=== PATIENT | female | born 1950 | race Caucasian/White ===

== ENCOUNTER 2017-04-18 13:47 | Outpatient (CLI) | payer MEDICARE ==
[2017-04-18 20:17] LABS: BASOPHILS % (AUTO) 0.3 %; EOSINOPHILS # (AUTO) 0.1 10^3/uL (0.0-0.7); EOSINOPHILS % (AUTO) 0.6 %; HCT - HEMATOCRIT 47.8 % (37.0-47.0); HGB - HEMOGLOBIN 15.6 g/dL (12.0-16.0); LYMPHOCYTES % (AUTO) 7.5 %; MEAN CORPUSCULAR HEMOGLOBIN 28.8 pg (27.0-31.0); MEAN CORPUSCULAR HGB CONC 32.6 g/dL (32.0-36.0); MEAN CORPUSCULAR VOLUME 88.4 fL (81.0-99.0); MEAN PLATELET VOLUME 9.2 fL (7.9-10.8); MONOCYTES # (AUTO) 0.9 10^3/uL (0.0-1.0); MONOCYTES % (AUTO) 6.9 %; NEUTROPHILS # (AUTO) 10.7 10^3/uL (1.5-6.6); NEUTROPHILS % (AUTO) 84.7 %; RED BLOOD COUNT 5.41 10^6/uL (4.20-5.40); RED CELL DISTRIBUTION WIDTH 14.1 % (12.0-15.0); UNCORRECTED WHITE BLOOD COUNT 12.7 x10^3/uL; WHITE BLOOD COUNT 12.7 x10^3/uL (4.8-10.8)
[2017-04-18 20:22] LABS: ALBUMIN/GLOBULIN RATIO 1.2 (1.0-2.2); BILIRUBIN,TOTAL 0.4 mg/dL (0.2-1.0); BUN - BLOOD UREA NITROGEN 22 mg/dL (6-20); CALCIUM 9.5 mg/dL (8.5-10.3); CARBON DIOXIDE - CO2 21 mmol/L (21-32); CHLORIDE 109 mmol/L (101-111); GFR - MDRD 55 (>89); GLUCOSE 169 mg/dL (70-100); POTASSIUM 3.7 mmol/L (3.5-5.0); SODIUM 140 mmol/L (135-145); TOTAL PROTEIN 7.8 g/dL (6.7-8.2)
== END 2017-04-18 13:48 | disposition home or self-care (01) ==
LOC: LAB.WCP 13:47
PROVIDERS: ATTEND Physician Assistant Medical
DX: R00.0 Tachycardia, unspecified (principal); Z79.899 Other long term (current) drug therapy
CPT/HCPCS: 36415; 80053; 84443; 85025

== ENCOUNTER 2017-06-11 12:14 | Outpatient (CLI) | payer MEDICARE | END 2017-06-11 12:15 | disposition home or self-care (01) | LOC: DI 12:14 | PROVIDERS: ATTEND Physician Assistant Medical | DX: R00.0 Tachycardia, unspecified (principal); R06.02 Shortness of breath | CPT/HCPCS: 93306 ==

== ENCOUNTER 2017-08-27 15:27 | Emergency (ER) | payer MEDICARE ==
[2017-08-27 15:41] VITALS: BP 159/102
[2017-08-27] MEDS ORDERED: IPRATROPIUM/ALBUTEROL 3 ML NEB INH STA (16:10)
[2017-08-27] MEDS ORDERED: IPRATROPIUM/ALBUTEROL 3 ML NEB INH ONE (16:21)
--- NOTE | 2017-08-27 16:36 | ED Physician Documentation ---
PD HPI DYSPNEA - Stated complaint Stated Complaint: WHEEZING - Chief complaint Chief Complaint: Resp - History obtained from History obtained from: Patient - History of Present Illness Timing - duration: Days ("Several") Timing - details: Still present Worsened by: Coughing Associated symptoms: Cough, Wheezing. No: Fever, Chest pain / discomfort - Additional information Additional information: The patient is a 67-year-old female who presents with cough and wheezing of several days duration. She reports associated sore throat and congestion. She denies fever, chest pain, headache, or abdominal pain. She has a history of bronchitis and has an albuterol inhaler. History is significant for diabetes and gastroparesis. She has never smoked cigarettes. Review of Systems Constitutional: denies: Fever Nose: reports: Congestion Throat: reports: Sore throat Cardiac: denies: Chest pain / pressure, Palpitations Respiratory: reports: Cough. denies: Dyspnea GI: denies: Abdominal Pain, Nausea, Vomiting : denies: Dysuria Skin: denies: Rash Musculoskeletal: denies: Back pain, Extremity swelling Neurologic: denies: Headache PD PAST MEDICAL HISTORY - Past Medical History Cardiovascular: Hypertension Respiratory: Other (bronchitis) Neuro: TIA, Parkinson's, Seizure disorder Endocrine/Autoimmune: None BRIQUETTE OPERATOR: None : None Psych: None Musculoskeletal: Osteoarthritis - Past Surgical History Past Surgical History: Yes General: Cholecystectomy /BRIQUETTE OPERATOR: Hysterectomy HEENT: Tonsil/Adenoidectomy - Present Medications Home Medications: Ambulatory Orders Medication Instructions Recorded Confirmed Amitriptyline HCl 100 mg PO HS 10/22/13 11/30/15 Clopidogrel [Plavix] 75 mg PO DAILY 10/22/13 11/30/15 Erythromycin [James-Tab] 250 mg PO BID 10/22/13 11/30/15 Hydroxyzine Pamoate 25 mg PO Q8HR 10/22/13 01/21/14 Loratadine [Claritin] 10 mg PO DAILY 10/22/13 01/21/14 Lorazepam 0.5 mg PO Q6-8H PRN 10/22/13 01/21/14 Metoclopramide [Reglan] 10 mg PO BID 10/22/13 11/30/15 Multivitamin [Multi-Day Vitamins] 1 each PO DAILY 10/22/13 01/21/14 Omeprazole [PriLOSEC] 01/16/14 04/17/14 Oxycodone HCl/Acetaminophen 1 - 2 each PO BID PRN 10/22/13 01/21/14 [Percocet 5-325 mg Tablet] Topiramate [Topamax] 100 mg PO BID 10/22/13 11/30/15 predniSONE [Deltasone] 40 mg PO DAILY 5 Days tablet 01/21/14 Potassium Chloride [Klor-Con M10] 10 meq PO DAILY 11/30/15 11/30/15 - Allergies Allergies/Adverse Reactions: Allergies Allergy/AdvReac Type Severity Reaction Status Date / Time Penicillins Allergy Severe Respiratory Verified 11/30/15 19:23 aspirin Allergy resp Verified 11/30/15 19:23 diphenhydramine HCl * Allergy Hives Verified 11/30/15 19:23 [From Benadryl] iodine Allergy resp Verified 11/30/15 19:23 micafungin sodium * Allergy Anaphylaxis Verified 11/30/15 19:23 [From Mycamine] oxytetracycline Allergy resp Verified 11/30/15 19:23 [From Terramycin] oxytetracycline HCl * Allergy resp Verified 11/30/15 19:23 [From Terramycin] valproate sodium * AdvReac Nausea Verified 11/30/15 19:23 [From Depakene] valproic acid [From Depakene] AdvReac Nausea Verified 11/30/15 19:23 - Social History Does the pt smoke?: No Smoking Status: Never smoker Does the pt drink ETOH?: Yes Does the pt have substance abuse?: No - Immunizations Immunizations are current?: Yes - POLST Patient has POLST: No POLST Status: Full Code PD ED PE NORMAL - Vitals Vital signs reviewed: Yes (hypertensive) - General General: Alert and oriented X 3, Well developed/nourished - HEENT HEENT: Atraumatic, Ears normal, Pharynx benign - Neck Neck: Supple, no meningeal sign, No adenopathy, No JVD - Cardiac Cardiac: RRR, No murmur - Respiratory Respiratory: Other (Expiratory wheezing bilaterally. No rales or rhonchi.) - Abdomen Abdomen: Soft, Non tender - Back Back: No CVA TTP - Derm Derm: No rash - Extremities Extremities: No edema, No calf tenderness / cord - Neuro Neuro: Alert and oriented X 3, No motor deficit, No sensory deficit Results - Vitals Vitals: Oxygen O2 Source Room air - EKG (time done) 16:20 Rate: Rate (enter#) (108) Rhythm: Sinus tachycardia [place]: LAD Intervals: Normal [place] QRS: Poor R wave progression Ischemia: Q waves (in inferior leads II, III, and aVF, consistent with old inferior VT.) Compare to prior EKG: Unchanged from prior EKG (No significant change compared to prior tracing of 11/30/2015.) Computer interpretation: Agree with computer PD MEDICAL DECISION MAKING - ED course Complexity details: reviewed old records, reviewed results, re-evaluated patient , considered differential, d/w patient, d/w family ED course: The patient's presentation is most consistent with asthmatic bronchitis. Her presentation does not suggest pneumonia or congestive heart failure. Treatment in the emergency department included administration of DuoNeb nebulizer, which did improve the patient's air movement and almost completely cleared her wheezing. I discussed with her and her the expected course of illness, rales potentially worrisome signs or symptoms that should prompt reevaluation in the emergency department. Departure - Departure Disposition: 01 Home, Self Care Clinical Impression: Upper respiratory tract infection Qualifiers: URI type: unspecified URI Qualified Code(s): J06.9 - Acute upper respiratory infection, unspecified Asthma Qualifiers: Asthma severity: mild Asthma persistence: unspecified Asthma complication type : with acute exacerbation Qualified Code(s): J45.901 - Unspecified asthma with ( acute) exacerbation Condition: Stable Instructions: ED Bronchitis Asthmatic Follow-Up: Floresita Robles PA-C [Primary Care Provider] - Comments: Continue your Combivent and albuterol inhalers as previously prescribed. You can use Tylenol or ibuprofen as needed for discomfort. Follow up with your primary physician within 1-2 weeks. Call to schedule appointment. Return to the emergency department if you develop increasing difficulty breathing, or otherwise worsening symptoms. Discharge Date/Time: 08/27/17 17:00
== END 2017-08-27 17:00 | disposition home or self-care (01) ==
LOC: ED 15:27
DX: J06.9 Acute upper respiratory infection, unspecified (principal); J45.901 Unspecified asthma with (acute) exacerbation; I10 Essential (primary) hypertension; G20 Parkinson's disease; Z86.73 Personal history of transient ischemic attack (TIA), and cerebral infarction without residual deficits
CPT/HCPCS: 93005; 94664; 99283; J7620

== ENCOUNTER 2018-08-07 20:26 | Outpatient (CLI) | payer MEDICARE | END 2018-08-07 20:27 | disposition critical access hospital (66) | LOC: EMS 20:26 | PROVIDERS: ATTEND Surgery | DX: R52 Pain, unspecified (principal); S50.11XA Contusion of right forearm, initial encounter; S80.01XA Contusion of right knee, initial encounter; S50.12XA Contusion of left forearm, initial encounter; Z79.01 Long term (current) use of anticoagulants; W01.0XXA Fall on same level from slipping, tripping and stumbling without subsequent striking against object, initial encounter; Y93.01 Activity, walking, marching and hiking; Y92.009 Unspecified place in unspecified non-institutional (private) residence as the place of occurrence of the external cause | CPT/HCPCS: A0425; A0429 ==

== ENCOUNTER 2018-08-07 21:35 | Emergency (ER) | payer MEDICARE ==
--- NOTE | 2018-08-07 21:49 | ED Physician Documentation ---
PD HPI Fall - Stated complaint Stated Complaint: GLF - Chief complaint Chief Complaint: Trauma Ext - History obtained from History obtained from: Patient, EMS - History of Present Illness Mechanism of injury: Tripped Fall distance: Standing position Where injury occurred: Home Timing - onset: Enter time (2044), Today Injury(ies) location: Right Upper Extremity, Right Lower Extremity Quality of pain: Pain Associated symptoms: No: LOC, AMS, Amnesia, Seizures, Ear drainage, Nasal drainage, Neck pain, Weakness, Paresthesias, Dyspnea, Nausea / vomiting, Hematemesis, Abdominal distension Symptoms improve with: Rest Worsens with: Movement Contributing factors: Anticoagulated (with clopidigrel) Similar symptoms before: Has not had sx before Recently seen: Not recently seen - Additional information Additional information: 68 y/o female ambulating back from the bathroom in he home tripped over the edge of a carpet and fell forward onto her right side injuring her right knee and elbow. Review of Systems Constitutional: denies: Fever Eyes: denies: Decreased vision Ears: denies: Ear pain Nose: denies: Congestion Throat: denies: Sore throat Cardiac: denies: Chest pain / pressure, Palpitations Respiratory: denies: Dyspnea, Cough GI: reports: Diarrhea. denies: Abdominal Pain, Nausea, Vomiting : denies: Dysuria, Frequency Skin: denies: Rash Musculoskeletal: reports: Extremity pain, Joint pain, Joint swelling, Pain with weight bearing. denies: Neck pain, Back pain Neurologic: denies: Generalized weakness, Focal weakness, Numbness PD PAST MEDICAL HISTORY - Present Medications Home Medications: Ambulatory Orders Medication Instructions Recorded Confirmed Clopidogrel [Plavix] 75 mg PO DAILY 10/22/13 11/30/15 Loratadine [Claritin] 10 mg PO DAILY 10/22/13 01/21/14 Multivitamin [Multi-Day Vitamins] 1 each PO DAILY 10/22/13 01/21/14 Omeprazole [PriLOSEC] 20 mg PO DAILY 10/22/13 01/21/14 Topiramate [Topamax] 100 mg PO BID 10/22/13 11/30/15 Potassium Chloride [Klor-Con M10] 10 meq PO DAILY 11/30/15 11/30/15 Duloxetine HCl [Cymbalta] 60 mg PO 08/07/18 Melatonin/Pyridoxine [Melatonin 5 1 tab PO QPM 11/01/18 11/01/18 mg Tablet] Meloxicam 15 mg PO 08/07/18 - Allergies Allergies/Adverse Reactions: Allergies Allergy/AdvReac Type Severity Reaction Status Date / Time Penicillins Allergy Severe Respiratory Verified 08/07/18 22:18 amitriptyline [From Elavil] Allergy Unknown Verified 08/07/18 22:50 aspirin Allergy resp Verified 08/07/18 22:18 diphenhydramine HCl * Allergy Hives Verified 08/07/18 22:18 [From Benadryl] divalproex sodium Allergy Unknown Unverified 08/07/18 22:18 iodine Allergy resp Verified 08/07/18 22:18 micafungin sodium * Allergy Anaphylaxis Verified 08/07/18 22:18 [From Mycamine] oxytetracycline Allergy resp Verified 08/07/18 22:18 [From Terramycin] oxytetracycline HCl * Allergy resp Verified 08/07/18 22:18 [From Terramycin] prednisone Allergy Unknown Unverified 08/07/18 22:18 valproate sodium * AdvReac Nausea Verified 08/07/18 22:18 [From Depakene] valproic acid [From Depakene] AdvReac Nausea Verified 08/07/18 22:18 PD ED PE NORMAL - Vitals Vital signs reviewed: Yes (hypertensive ) - General General: Alert and oriented X 3, No acute distress, Well developed/nourished - HEENT HEENT: Atraumatic, PERRL, EOMI - Neck Neck: Supple, no meningeal sign, No bony TTP - Cardiac Cardiac: RRR, No murmur - Respiratory Respiratory: No respiratory distress, Clear bilaterally - Abdomen Abdomen: Soft, Non tender - Back Back: No CVA TTP, No spinal TTP - Derm Derm: Normal color, Warm and dry, No rash - Extremities Extremities: Other (There is ecchymosis and swelling to the right knee over the patella and the lateral joint line. There is corresponding tenderness and the ligaments appear intact. distal n/v is intact. The right elbow has ecchymosis and tenderness to the brachioradialis on the right and the joint itself is without tenderness or restriction in any range of movement. The wrist hand and shoulder on that side do not appear involved. distal n/v intact. ) - Neuro Neuro: Alert and oriented X 3, hand heel seat fitter 2-12 intact, No motor deficit, No sensory deficit, Normal speech Eye Opening: Spontaneous Motor: Obeys Commands Verbal: Oriented GCS Score: 15 - Psych Psych: Normal mood, Normal affect Results - Vitals Vitals: Vital Signs - 24 hr 08/07/18 21:37 Temperature 36.0 C L Heart Rate 97 Respiratory 18 Rate Blood Pressure 155/90 H O2 Saturation 97 Oxygen O2 Source Room air - Rads (name of study) right knee Radiology: Prelim report reviewed (Impression: 1. No acute bony abnormality or joint effusion. 2. Osteoarthritis, advanced medially.), EMP read indepedently, See rad report PD MEDICAL DECISION MAKING - ED course Complexity details: reviewed old records, reviewed results, re-evaluated patient, considered differential, d/w patient ED course: 68 y/o female has fallen and injured her right knee. She has bruising to the knee and pain with weight bearing and no fracture or effusion on x-ray. She is placed into a knee immobilizer and is able to ambulate without the use of a walker. Departure - Departure Disposition: 01 Home, Self Care Clinical Impression: Contusion of right knee Qualifiers: Encounter type: initial encounter Qualified Code(s): S80.01XA - Contusion of right knee, initial encounter Condition: Stable Instructions: ED Sprain Knee Follow-Up: [facility] [Provider Group]
[2018-08-08 00:13] VITALS: BP 154/69
--- NOTE | 2018-08-08 04:06 | XRAY Report ---
Reason: fall anterolateral pain/swelling Procedure Date: 08/07/2018 Accession Number: [id number] / [id number] Procedure: XR - Knee 4 View RT CPT Code: FULL RESULT: EXAM: RIGHT KNEE RADIOGRAPHY EXAM DATE: 08/07/2018 10:18 PM. CLINICAL HISTORY: Fall. Anterolateral pain/swelling. COMPARISON: None. TECHNIQUE: 4 views. FINDINGS: Bones: Normal. No fractures or bone lesions. Joints: Tricompartment spurring. Narrowing of the medial compartment. No effusion. No subluxations. Soft Tissues: Unremarkable. IMPRESSION: 1. No acute bony abnormality or joint effusion. 2. Osteoarthritis, advanced medially. RADIA
== END 2018-08-08 00:13 | disposition home or self-care (01) ==
LOC: EDUNIT# → ED 21:35
DX: S80.01XA Contusion of right knee, initial encounter (principal); S50.01XA Contusion of right elbow, initial encounter; W18.09XA Striking against other object with subsequent fall, initial encounter; Y92.009 Unspecified place in unspecified non-institutional (private) residence as the place of occurrence of the external cause
CPT/HCPCS: 99283

== ENCOUNTER 2019-01-12 08:00 | Outpatient (CLI) | payer MEDICARE | END 2019-01-12 23:59 | disposition home or self-care (01) | LOC: LAB.R 08:00 | PROVIDERS: ATTEND Physician Assistant | DX: R30.0 Dysuria (principal) | CPT/HCPCS: 87077; 87086 ==

== ENCOUNTER 2019-02-17 08:00 | Outpatient (CLI) | payer MEDICARE | END 2019-02-17 23:59 | disposition home or self-care (01) | LOC: LAB.R 08:00 | PROVIDERS: ATTEND Physician Assistant | DX: R30.0 Dysuria (principal) | CPT/HCPCS: 87086 ==

== ENCOUNTER 2019-05-17 22:42 | Outpatient (CLI) | payer MEDICARE | END 2019-05-17 22:43 | disposition critical access hospital (66) | LOC: EMS 22:42 | PROVIDERS: ATTEND Surgery | DX: R53.1 Weakness (principal); R63.1 Polydipsia; R05 Cough | CPT/HCPCS: A0425; A0427 ==

== ENCOUNTER 2019-05-17 23:04 | Inpatient (IN) | payer MEDICARE ==
[2019-05-17 23:34] LABS: BASOPHILS % (AUTO) 0.2 %; EOSINOPHILS % (AUTO) 0.3 %; LYMPHOCYTES % (AUTO) 1.3 %; MEAN CORPUSCULAR HEMOGLOBIN 29.4 pg (27.0-31.0); MEAN CORPUSCULAR HGB CONC 32.4 g/dL (32.0-36.0); MEAN CORPUSCULAR VOLUME 90.6 fL (81.0-99.0); MEAN PLATELET VOLUME 10.2 fL (7.9-10.8); MONOCYTES % (AUTO) 5.8 %; NEUTROPHILS % (AUTO) 90.8 %; PLT - PLATELET COUNT 400 10^3/uL (130-450); RED BLOOD COUNT 4.77 10^6/uL (4.20-5.40); RED CELL DISTRIBUTION WIDTH 13.6 % (12.0-15.0); WHITE BLOOD COUNT 25.8 x10^3/uL (4.8-10.8)
[2019-05-17 23:39] LABS: ABNORMAL LYMPHS % (MANUAL) 0 %
[2019-05-17 23:44] LABS: ALBUMIN 2.9 g/dL (3.2-5.5); ALBUMIN/GLOBULIN RATIO 0.7 (1.0-2.2); BILIRUBIN,TOTAL 0.9 mg/dL (0.2-1.0); CALCIUM 8.7 mg/dL (8.5-10.3); CREATININE 1.5 mg/dL (0.4-1.0); INR 1.5 (0.8-1.2); PT - PROTHROMBIN TIME 17.3 secs (9.9-12.6); TOTAL PROTEIN 6.9 g/dL (6.7-8.2)
--- NOTE | 2019-05-17 23:44 | ED Physician Documentation ---
History of Present Illness - Stated complaint Stated Complaint: WEAKNESS, POSS SEPSIS - Chief complaint Chief Complaint: Neuro - History obtained from History obtained from: Patient - History of Present Illness Timing: Prior to arrival - Additonal information Additional information: This is a 68-year-old woman who presents by ambulance complaints that she could get off the toilet tonight. She walks with a walker was able to get to the toilet but could not get up so family called 911. She did not fall. She denies loss of consciousness. She is been coughing for the past couple weeks and has increasing thirst.She does not bring up any phlegm and has not felt short of breath. She has felt like her heart racing. Denies dizziness. She is had no nausea vomiting, diarrhea, dysuria. She denies history of asthma or COPD but does have a history of wheezing and uses an inhaler. Denies history of [place]. No history of DVT and denies peripheral edema. She is had no fever. Review of Systems Constitutional: denies: Fever Eyes: denies: Loss of vision Ears: denies: Ear pain Nose: denies: Congestion Throat: denies: Sore throat Cardiac: reports: Palpitations. denies: Chest pain / pressure Respiratory: reports: Dyspnea, Cough, Wheezing GI: denies: Nausea, Vomiting, Diarrhea : denies: Dysuria, Frequency Skin: denies: Rash Musculoskeletal: denies: Extremity pain, Extremity swelling, Joint swelling Neurologic: reports: Generalized weakness. denies: Numbness, Syncope, Confused, Altered mental status, Head injury Endocrine: reports: Other (Denies diabetes) PD PAST MEDICAL HISTORY - Past Medical History Cardiovascular: Hypertension, Arrhythmia Respiratory: Other, Asthma Neuro: Seizure disorder, CVA Endocrine/Autoimmune: None GI: Other SURG RN: None : None Psych: None Musculoskeletal: Osteoarthritis - Past Surgical History Past Surgical History: Yes General: Cholecystectomy Ortho: Spine surgery /SURG RN: Hysterectomy HEENT: Tonsil/Adenoidectomy - Present Medications Home Medications: Ambulatory Orders Medication Instructions Recorded Confirmed Clopidogrel [Plavix] 75 mg PO DAILY 10/22/13 11/30/15 Loratadine [Claritin] 10 mg PO DAILY 10/22/13 01/21/14 Multivitamin [Multi-Day Vitamins] 1 each PO DAILY 10/22/13 01/21/14 Topiramate [Topamax] 100 mg PO BID 10/22/13 11/30/15 Potassium Chloride [Klor-Con M10] 10 meq PO DAILY 11/30/15 11/30/15 Melatonin/Pyridoxine [Melatonin 5 1 tab PO QPM 08/07/18 08/07/18 mg Tablet] Meloxicam 15 mg PO 08/07/18 RX: Duloxetine HCl [Cymbalta] 60 mg PO 08/07/18 Montelukast [Singulair] 10 mg PO QPM 05/17/19 05/17/19 RX: Carvedilol 6.25 mg PO BID 05/17/19 05/17/19 RX: Lansoprazole 15 mg PO 05/17/19 05/17/19 - Allergies Allergies/Adverse Reactions: Allergies Allergy/AdvReac Type Severity Reaction Status Date / Time Penicillins Allergy Severe Respiratory Verified 05/17/19 23:13 amitriptyline [From Elavil] Allergy Unknown Verified 05/17/19 23:13 aspirin Allergy resp Verified 05/17/19 23:13 diphenhydramine HCl * Allergy Hives Verified 05/17/19 23:13 [From Benadryl] divalproex sodium Allergy Unknown Verified 05/17/19 23:13 iodine Allergy resp Verified 05/17/19 23:13 micafungin sodium * Allergy Anaphylaxis Verified 05/17/19 23:13 [From Mycamine] oxytetracycline Allergy resp Verified 05/17/19 23:13 [From Terramycin] oxytetracycline HCl * Allergy resp Verified 05/17/19 23:13 [From Terramycin] prednisone Allergy Unknown Verified 05/17/19 23:13 valproate sodium * AdvReac Nausea Verified 05/17/19 23:13 [From Depakene] valproic acid [From Depakene] AdvReac Nausea Verified 05/17/19 23:13 - Social History Does the pt smoke?: No Smoking Status: Never smoker Does the pt drink ETOH?: Yes Does the pt have substance abuse?: No - Immunizations Immunizations are current?: Yes - POLST Patient has POLST: No POLST Status: Full Code PD ED PE NORMAL - Vitals Vital signs reviewed: Yes - General General: Alert and oriented X 3, No acute distress, Well developed/nourished - HEENT HEENT: Atraumatic - Neck Neck: No adenopathy, Thyroid normal - Cardiac Cardiac: No murmur, No rub, Strong equal pulses, Other (Tachycardic) - Respiratory Respiratory: No respiratory distress, Other (Breath sounds are diminished bilaterally) - Abdomen Abdomen: Normal bowel sounds, Soft, Other (Obese) - Derm Derm: Other (She is pale) - Extremities Extremities: No deformity, No edema - Neuro Neuro: Alert and oriented X 3, Other (No gross neurological deficits) - Psych Psych: Other (Flat affect) Results - Vitals Vitals: Vital Signs - 24 hr 05/17/19 05/17/19 05/17/19 23:05 23:26 23:46 Temperature 36.9 C Heart Rate 122 H 116 H 114 H Respiratory 40 H 39 H 32 H Rate Blood Pressure 129/36 L 134/84 H 146/106 H O2 Saturation 93 95 94 05/18/19 05/18/19 05/18/19 00:12 00:30 01:05 Temperature Heart Rate 105 H 99 105 H Respiratory 32 H 29 H 31 H Rate Blood Pressure 156/70 H 149/112 H O2 Saturation 95 96 05/18/19 05/18/19 01:06 01:07 Temperature 37.1 C Heart Rate 104 H Respiratory 31 H Rate Blood Pressure 149/72 H O2 Saturation 96 Oxygen O2 Source Room air - EKG (time done) 2313 Rate: Rate (enter#) Rhythm: Sinus tachycardia Intervals: Normal [place] QRS: Normal Ischemia: Normal ST segments Compare to prior EKG: Old EKG unavailable - Labs Labs: Laboratory Tests 05/17/19 05/17/19 05/17/19 23:20 23:20 23:20 WBC 25.8 H RBC 4.77 Hgb 14.0 Hct 43.2 MCV 90.6 MCH 29.4 MCHC 32.4 RDW 13.6 Plt Count 400 MPV 10.2 Neut # (Auto) Not Reportable Lymph # (Auto) Not Reportable [place] # (Auto) Not Reportable Eos # (Auto) Not Reportable Baso # (Auto) Not Reportable Absolute Nucleated RBC Not Reportable Total Counted 100 Band Neuts % (Manual) 1 Abnorm Lymph % (Manual) 0 Nucleated RBC % Not Reportable Neutrophils # (Manual) 24.0 H Lymphocytes # (Manual) 1.0 L Monocytes # (Manual) 0.8 Eosinophils # (Manual) 0.0 Basophils # (Manual) 0.0 Differential Comment MANUAL DIFFERENTIAL WBC Morphology NORMAL APPEARANCE Platelet Estimate NORMAL (130-450,000) Platelet Morphology NORMAL APPEARANCE RBC Morph Micro Appear NORMAL APPEARANCE PT 17.3 H INR 1.5 H APTT 28.6 Sodium 138 Potassium 3.6 Chloride 111 Carbon Dioxide 14 L Anion Gap 13.0 BUN 25 H Creatinine 1.5 H Estimated GFR (MDRD) 35 L Glucose 166 H Lactic Acid Calcium 8.7 Total Bilirubin 0.9 AST 40 ALT 31 Alkaline Phosphatase 164 H Troponin I High Sens Total Protein 6.9 Albumin 2.9 L Globulin 4.0 Albumin/Globulin Ratio 0.7 L Lipase 26 Urine Color Urine Clarity Urine pH Ur Specific [place] Urine Protein Urine Glucose (UA) Urine Ketones Urine Occult Blood Urine Nitrite Urine Bilirubin Urine Urobilinogen Ur Leukocyte Esterase Urine RBC Urine WBC Ur Squamous Epith Cells Urine Bacteria Ur Microscopic Review Urine Culture Comments 05/17/19 05/18/19 05/18/19 23:44 00:22 00:43 WBC RBC Hgb Hct MCV MCH MCHC RDW Plt Count MPV Neut # (Auto) Lymph # (Auto) [place] # (Auto) Eos # (Auto) Baso # (Auto) Absolute Nucleated RBC Total Counted Band Neuts % (Manual) Abnorm Lymph % (Manual) Nucleated RBC % Neutrophils # (Manual) Lymphocytes # (Manual) Monocytes # (Manual) Eosinophils # (Manual) Basophils # (Manual) Differential Comment WBC Morphology Platelet Estimate Platelet Morphology RBC Morph Micro Appear PT INR APTT Sodium Potassium Chloride Carbon Dioxide Anion Gap BUN Creatinine Estimated GFR (MDRD) Glucose Lactic Acid 1.4 Calcium Total Bilirubin AST ALT Alkaline Phosphatase Troponin I High Sens 25.7 H* Total Protein Albumin Globulin Albumin/Globulin Ratio Lipase Urine Color YELLOW Urine Clarity SL. CLOUDY Urine pH 5.0 Ur Specific [place] 1.020 Urine Protein 100 H Urine Glucose (UA) NEGATIVE Urine Ketones NEGATIVE Urine Occult Blood LARGE H Urine Nitrite NEGATIVE Urine Bilirubin NEGATIVE Urine Urobilinogen 1 (NORMAL) Ur Leukocyte Esterase LARGE H Urine RBC 6-10 H Urine WBC >25 H Ur Squamous Epith Cells NONE SEEN Urine Bacteria Moderate H Ur Microscopic Review INDICATED Urine Culture Comments INDICATED - Rads (name of study) CXR Radiology: See rad report (No definite infiltrate) PD MEDICAL DECISION MAKING - ED course Complexity details: reviewed results, re-evaluated patient, d/w patient ED course: Patient's white blood cell count was 25,000. She has a BUN of 25 creatinine 1.5 INR is 1.5. Her troponin came back elevated at 25.7. Urinalysis showed greater than 25 white blood cells and her chest x-ray did not show a definite infiltrate although the radiologist is reading it as atypical infiltrate. Patient was given a liter of fluids and an albuterol nebulizer after which she felt like she was able to breathe easier. She was given Levaquin IV due to penicillin allergy and discussed with the hospitalist who will admit for urinary tract infection and elevated troponin. Departure - Departure Disposition: [facility] DC/Xfer Clinical Impression: NSTEMI (non-ST elevated myocardial infarction), Weakness, Volume depletion UTI (urinary tract infection) Qualifiers: Urinary tract infection type: site unspecified Hematuria presence: without hematuria Qualified Code(s): N39.0 - Urinary tract infection, site not specified Discharge Date/Time: 05/18/19 01:59
--- NOTE | 2019-05-17 23:49 | XRAY Report ---
Reason: new onset weakness, tachypnea Procedure Date: 05/17/2019 Accession Number: [id number] / [id number] Procedure: XR - Chest 1 View X-Ray CPT Code: 44703 FULL RESULT: EXAM: CHEST RADIOGRAPHY EXAM DATE: 05/17/2019 11:44 PM. CLINICAL HISTORY: New onset weakness, tachypnea. COMPARISON: CHEST 2 VIEW PA/LAT 11/30/2015 7:16 PM. TECHNIQUE: 1 view. FINDINGS: Lungs/Pleura: Mild interstitial prominence, which may reflect mild interstitial edema or an atypical infectious process. Mediastinum: Within exam limitations, the cardiomediastinal contour is normal. Other: None. IMPRESSION: Mild interstitial prominence, which may reflect edema or an atypical infectious process. RADIA
[2019-05-17 23:51] LABS: PARTIAL THROMBOPLASTIN TIME 28.6 secs (24.9-33.3)
[2019-05-18 00:04] LABS: BAND NEUTROPHILS % (MANUAL) 1 %; LYMPHOCYTES % (MANUAL) 4 %; MONOCYTES # (MANUAL) 0.8 10^3/uL (0.0-1.0)
[2019-05-18 00:05] LABS: DIFFERENTIAL COMMENT MANUAL DIFFERENTIAL; PLATELET ESTIMATE, MANUAL NORMAL (130-450,000) (NORMAL); PLATELET MORPHOLOGY NORMAL APPEARANCE (NORMAL); RBC MORPHOLOGY (MULTIPLE) NORMAL APPEARANCE (NORMAL)
[2019-05-18 00:30] LABS: BILIRUBIN,URINE NEGATIVE (NEGATIVE); GLUCOSE, URINE (UA) NEGATIVE (NEGATIVE); KETONES,URINE (UA) NEGATIVE (NEGATIVE); LEUKOCYTE ESTERASE, URINE LARGE (NEGATIVE); NITRITE,URINE NEGATIVE (NEGATIVE); OCCULT BLOOD,URINE LARGE (NEGATIVE); PROTEIN,URINE 100 mg/dL (NEGATIVE); UROBILINOGEN,URINE 1 (NORMAL) E.U./dL (NORMAL)
[2019-05-18 00:31] LABS: CLARITY,URINE SL. CLOUDY (CLEAR)
[2019-05-18 00:42] LABS: SQUAMOUS EPITHELIAL CELL,UR NONE SEEN (<= Few)
[2019-05-18 00:43] LABS: BACTERIA,URINE Moderate /HPF (None Seen)
[2019-05-18] MEDS ORDERED: ALBUTEROL NEB 2.5 MG/3 ML INH STA (00:57)
[2019-05-18] MEDS ORDERED: levoFLOXacin 750 MG/150 ML 750 MG/150 ML BAG IV ONE (01:00)
[2019-05-18] MEDS ORDERED: SODIUM CHLORIDE 0.9% 1,000 ML IV ONE (01:01)
[2019-05-18] MEDS ORDERED: SODIUM CHLORIDE FLUSH 0.9% 10 ML SYRINGE IVP PRN (01:14)
[2019-05-18] MEDS ORDERED: ONDANSETRON ODT 4 MG TABLET TL PRN (01:14)
--- NOTE | 2019-05-18 01:47 | HISTORY & PHYSICAL EXAMINATION ---
Chief Complaint - Chief Complaint Chief Complaint: weakness History of Present Illness - Admitted From Admitted From:: [facility] ED - History Obtained From Records Reviewed: yes History obtained from: patient - History of Present Illness HPI Comment/Other: Patient seen on 05/18/19 at 0200am Patient is a 68 y/o F who presented to the ED with complain of weakness. She had gone to use the bathroom this evening but was too weak to get off the toilet seat and required the help of a family member. As a result she was brought to the ED to be evaluated. She reports a nonproductive cough she has been having for a couple weeks. She reports chills but no fever. She denied chest pain, abd pain, nausea or vomiting. In the ED she was found to have a WBC of 25 and a UA was strongly suggestive of a UTI. She denied increase urinary frequency, dysuria , change in odor or color. At bedside she is breathing on room air, talking in full sentences without dyspnea and appears comfortable. As a result of her presentation, she is being admitted for further treatment. History - Past Medical History Cardiovascular: reports: Hypertension, Arrhythmia Respiratory: reports: Other, Asthma Neuro: reports: Seizure disorder, CVA Endocrine/Autoimmune: reports: None GI: reports: Other PAVILION CUTTER: reports: None : reports: None Psych: reports: None Musculoskeletal: reports: Osteoarthritis MRSA Hx?: No - Past Surgical History General: reports: Cholecystectomy Ortho: reports: Spine surgery /PAVILION CUTTER: reports: Hysterectomy HEENT: reports: Tonsil/Adenoidectomy - Family & Social History Family History Comment/Other: mother: breast cancer. father: Parkinsons Social History Notes: She lives with her and her son. She gets around using a walker. Her prepares meals and takes her to appointments. She denied tobacco, alcohol or illicit drug use - POLST Patient has POLST: No POLST Status: Full Code Meds/Allgy - Home Medications Home Medications: Ambulatory Orders Medication Instructions Recorded Confirmed Clopidogrel [Plavix] 75 mg PO DAILY 10/22/13 11/30/15 Loratadine [Claritin] 10 mg PO DAILY 10/22/13 01/21/14 Multivitamin [Multi-Day Vitamins] 1 each PO DAILY 10/22/13 01/21/14 Topiramate [Topamax] 100 mg PO BID 10/22/13 11/30/15 Potassium Chloride [Klor-Con M10] 10 meq PO DAILY 11/30/15 11/30/15 Duloxetine HCl [Cymbalta] 60 mg PO 08/07/18 Melatonin/Pyridoxine [Melatonin 5 1 tab PO QPM 08/07/18 08/07/18 mg Tablet] Meloxicam 15 mg PO 08/07/18 Carvedilol 6.25 mg PO BID 05/17/19 05/17/19 Lansoprazole 15 mg PO 05/17/19 05/17/19 Montelukast [Singulair] 10 mg PO QPM 05/17/19 05/17/19 - Allergies Allergies/Adverse Reactions: Allergies Allergy/AdvReac Type Severity Reaction Status Date / Time Penicillins Allergy Severe Respiratory Verified 05/17/19 23:13 amitriptyline [From Elavil] Allergy Unknown Verified 05/17/19 23:13 aspirin Allergy resp Verified 05/17/19 23:13 diphenhydramine HCl * Allergy Hives Verified 05/17/19 23:13 [From Benadryl] divalproex sodium Allergy Unknown Verified 05/17/19 23:13 iodine Allergy resp Verified 05/17/19 23:13 micafungin sodium * Allergy Anaphylaxis Verified 05/17/19 23:13 [From Mycamine] oxytetracycline Allergy resp Verified 05/17/19 23:13 [From Terramycin] oxytetracycline HCl * Allergy resp Verified 05/17/19 23:13 [From Terramycin] prednisone Allergy Unknown Verified 05/17/19 23:13 valproate sodium * AdvReac Nausea Verified 05/17/19 23:13 [From Depakene] valproic acid [From Depakene] AdvReac Nausea Verified 05/17/19 23:13 Review of Systems - Constitutional Constitutional: reports: Fatigue, Chills, Weakness. denies: Fever - Eyes Eyes: denies: Blurred vision, Vision loss, Dipolpia - Ears, Nose & Throat Ears, Nose & Throat: denies: Nasal pain, Sore throat, Hoarseness - Cardiovascular Cariovascular: denies: Chest pain, Edema - Respiratory Respiratory: reports: Cough. denies: Wheezing, Hemoptysis, SOB at rest - Gastrointestinal Gastrointestinal: denies: Abdominal pain, Abdominal distention, Constipation, Diarrhea, Nausea, Vomiting, Coffee grounds emesis, Reflux/heartburn - Genitourinary Genitourinary: denies: Dysuria, Frequency, Urgency, Incontinence, Flank pain - Musculoskeletal Musculoskeletal: denies: Muscle pain, Back pain, Muscle aches - Integumentary Integumentary: denies: Rash, Pruritis, Lesions - Neurological Neurological: reports: General weakness. denies: Focal weakness, Headache, Dizziness, Numbness Prior Level of Functionality: She lives with her and her son. She gets around using a walker. Her prepares meals and takes her to appointments. She denied tobacco, alcohol or illicit drug use Exam - Vital Signs Vital Signs: Vital Signs x48h Temp Pulse Resp BP Pulse Ox 05/18/19 01:30 100 31 H 165/85 H 97 05/18/19 01:07 37.1 C 05/18/19 01:06 104 H 31 H 149/72 H 96 05/18/19 01:05 105 H 31 H 05/18/19 00:30 99 29 H 149/112 H 96 05/18/19 00:12 105 H 32 H 156/70 H 95 05/17/19 23:46 114 H 32 H 146/106 H 94 05/17/19 23:26 116 H 39 H 134/84 H 95 05/17/19 23:05 36.9 C 122 H 40 H 129/36 L 93 - Physical Exam General Appearance: positive: No acute distress, Alert Eyes Bilateral: positive: Normal inspection, PERRL, EOMI ENT: positive: No signs of dehydration Neck: positive: Nml inspection, No JVD, Trachea midline Respiratory: positive: Chest non-tender, No respiratory distress, Breath sounds nml. negative: Wheezes, Rales, Rhonchi Cardiovascular: positive: No murmur, Tachycardia Abdomen: positive: Non-tender, Nml bowel sounds, No distention. negative: Guarding, Rebound Back: positive: Nml inspection Skin: positive: Color nml, No rash, Warm. negative: Diaphoresis Neurologic/Psychiatric: positive: Oriented x3, CN's nml (2-12), Motor nml Sepsis Event Note (H) - Evaluation Current Stage of Sepsis: Sepsis Possible source of Sepsis: positive: Genitourinary - Sepsis Criteria Sepsis Criteria: Recorded Heart Rate greater than 90 bpm, WBC count greater than 12,000 or less than 4000 Conclusion/Plan - Problem List (1) UTI (urinary tract infection) Conclusion/Plan: Patient started on levaquin 750mg IV daily Will dose q48h due to eGFR of 35. IV hydration with normal saline Urine culture pending Qualifiers: Urinary tract infection type: site unspecified Hematuria presence: without hematuria Qualified Code(s): N39.0 - Urinary tract infection, site not specified (2) Acute kidney injury Conclusion/Plan: ? 2/2 UTI vs medication Treating with levaquin. Hydrating patient. Hold meloxicam. Expect improvement. Will monitor (3) Elevated troponin Conclusion/Plan: Mildly elevated ?2/2 Tachycardia and or renal injury Will trend q6hrX 2 more (4) Hypertension Conclusion/Plan: On carvedilol. Will continue (5) Asthma Conclusion/Plan: Not in exacerbation On singulair. Will order duoneb prn when indicated. Qualifiers: Asthma severity: mild Asthma persistence: unspecified Asthma complication type: with acute exacerbation Qualified Code(s): J45.901 - Unspecified asthma with (acute) exacerbation (6) Depression Conclusion/Plan: On duloxetine (7) Seizure activity as manifestation of blood transfusion reaction Conclusion/Plan: On topamax (8) Osteoarthritis Conclusion/Plan: Hold meloxicam Tylenol prn (9) GERD (gastroesophageal reflux disease) Conclusion/Plan: Protonix ordered (10) Candidiasis Conclusion/Plan: Breast and groin area Nystatin powder ordered - Lab Results Fish Bones: 05/17/19 23:20 05/17/19 23:20 Core Measures - Anticipated LOS I expect patient to be DC'd or transferred within 96 hours.: Yes - DVT/VTE - Prophylaxis VTE/DVT Device ordered at admit?: Yes VTE/DVT Prophylaxis med ordered at admit?: Yes
[2019-05-18] MEDS: HEPARIN 5,000 UNIT/ML VIAL SUBQ SCH ×3 (02:33→20:06)
[2019-05-18] MEDS: SODIUM CHLORIDE 0.9% 1,000 ML IV SCH ×3 (02:34→20:07)
[2019-05-18] MEDS: PANTOPRAZOLE 40 MG TABLET PO SCH (06:24)
[2019-05-18 06:53] LABS: BASOPHILS # (AUTO) 0.1 10^3/uL (0.0-0.1); BASOPHILS % (AUTO) 0.4 %; EOSINOPHILS % (AUTO) 0.1 %; HGB - HEMOGLOBIN 12.3 g/dL (12.0-16.0); LYMPHOCYTES # (AUTO) 0.8 10^3/uL (1.5-3.5); LYMPHOCYTES % (AUTO) 2.9 %; MEAN CORPUSCULAR HEMOGLOBIN 30.2 pg (27.0-31.0); MEAN CORPUSCULAR HGB CONC 32.7 g/dL (32.0-36.0); MEAN CORPUSCULAR VOLUME 92.4 fL (81.0-99.0); MEAN PLATELET VOLUME 9.7 fL (7.9-10.8); MONOCYTES # (AUTO) 1.6 10^3/uL (0.0-1.0); MONOCYTES % (AUTO) 6.1 %; NEUTROPHILS # (AUTO) 23.8 10^3/uL (1.5-6.6); NEUTROPHILS % (AUTO) 88.7 %; PLT - PLATELET COUNT 383 10^3/uL (130-450); RED BLOOD COUNT 4.07 10^6/uL (4.20-5.40); RED CELL DISTRIBUTION WIDTH 13.5 % (12.0-15.0); WHITE BLOOD COUNT 26.9 x10^3/uL (4.8-10.8)
[2019-05-18 07:05] LABS: CALCIUM 8.3 mg/dL (8.5-10.3); CREATININE 1.5 mg/dL (0.4-1.0)
[2019-05-18 07:10] LABS: RBC MORPHOLOGY (MULTIPLE) 1+ ANISOCYTOSIS (NORMAL)
[2019-05-18] MEDS: SODIUM CHLORIDE FLUSH 0.9% 10 ML SYRINGE IVP SCH ×2 (08:50→20:08)
[2019-05-18] MEDS: NYSTATIN POWDER 15 GM TOP SCH ×2 (11:03→19:42)
[2019-05-18] MEDS: POLYETHYLENE GLYCOL 3350 17 GM PACKET PO SCH (11:03)
[2019-05-18] MEDS: BENZONATATE 100 MG CAPSULE PO PRN ×2 (11:34→20:08)
[2019-05-18] MEDS: KETOROLAC 15 MG/ML VIAL IVP PRN (11:34)
[2019-05-18] MEDS: IPRATROPIUM/ALBUTEROL 3 ML NEB INH PRN (22:12)
[2019-05-18] MEDS: ACETAMINOPHEN 325 MG TABLET PO PRN (22:35)
[2019-05-19] MEDS: SODIUM CHLORIDE FLUSH 0.9% 10 ML SYRINGE IVP SCH ×4 (01:37→23:37)
[2019-05-19 05:34] LABS: BASOPHILS % (AUTO) 0.1 %; EOSINOPHILS # (AUTO) 0.3 10^3/uL (0.0-0.7); EOSINOPHILS % (AUTO) 1.9 %; HGB - HEMOGLOBIN 11.7 g/dL (12.0-16.0); LYMPHOCYTES % (AUTO) 5.9 %; MEAN CORPUSCULAR HEMOGLOBIN 29.5 pg (27.0-31.0); MEAN CORPUSCULAR HGB CONC 31.8 g/dL (32.0-36.0); MEAN CORPUSCULAR VOLUME 92.9 fL (81.0-99.0); MEAN PLATELET VOLUME 9.9 fL (7.9-10.8); MONOCYTES # (AUTO) 1.3 10^3/uL (0.0-1.0); MONOCYTES % (AUTO) 7.6 %; NEUTROPHILS # (AUTO) 14.8 10^3/uL (1.5-6.6); NEUTROPHILS % (AUTO) 83.7 %; PLT - PLATELET COUNT 366 10^3/uL (130-450); RED BLOOD COUNT 3.96 10^6/uL (4.20-5.40); RED CELL DISTRIBUTION WIDTH 13.7 % (12.0-15.0); WHITE BLOOD COUNT 17.7 x10^3/uL (4.8-10.8)
[2019-05-19 05:43] LABS: CALCIUM 8.2 mg/dL (8.5-10.3); CREATININE 1.4 mg/dL (0.4-1.0)
[2019-05-19] MEDS: BENZONATATE 100 MG CAPSULE PO PRN (05:56)
[2019-05-19] MEDS: PANTOPRAZOLE 40 MG TABLET PO SCH (06:00)
[2019-05-19] MEDS: SODIUM CHLORIDE 0.9% 1,000 ML IV SCH ×2 (06:00→19:01)
[2019-05-19] MEDS: IPRATROPIUM/ALBUTEROL 3 ML NEB INH PRN ×2 (08:34→20:23)
[2019-05-19] MEDS: POLYETHYLENE GLYCOL 3350 17 GM PACKET PO SCH (08:59)
[2019-05-19] MEDS: HEPARIN 5,000 UNIT/ML VIAL SUBQ SCH ×2 (09:00→20:39)
[2019-05-19] MEDS: NYSTATIN POWDER 15 GM TOP SCH ×2 (09:01→20:39)
[2019-05-19] MEDS: KETOROLAC 15 MG/ML VIAL IVP PRN (10:14)
--- NOTE | 2019-05-19 11:19 | PROVIDER PROGRESS NOTE ---
Subjective - Prog Note Date Prog Note Date: 05/19/19 Prog Note Time: 11:19 - Subjective Pt reports feeling: Improved Subjective: less fatigue and is worried bc she wants her home meds. asked for tessalon yesterday and RT would like her to get mucinex today. Current Medications - Current Medications Current Medications: My Active Orders 05/18/19 11:06 Ketorolac Inj (15Mg) [Toradol Inj (15Mg)] 15 mg IVP Q6HR PRN 05/18/19 11:07 Benzonatate [Tessalon] 100 mg PO TID PRN 05/19/19 11:15 Carvedilol [Carvedilol] 6.25 mg PO BID Duloxetine HCl [Cymbalta] 60 mg PO DAILY Multivitamin [Multi-Day Vitamins] 1 each PO DAILY 05/19/19 12:00 Clopidogrel [Plavix] 75 mg PO DAILY guaiFENesin [Mucinex] 600 mg PO BID 05/19/19 21:00 Montelukast [Singulair] 10 mg PO QPM 05/20/19 08:00 Potassium Chloride [Klor-Con M10] 10 meq PO DAILYWM Objective - Vital Signs/Intake & Output Reviewed Vital Signs: Yes Vital Signs: Vital Signs x48h Temp Pulse Pulse Resp BP Pulse Ox 05/19/19 08:35 95 18 05/19/19 07:24 37.0 C 91 18 150/79 H 99 05/19/19 03:45 36.8 C 86 16 137/58 H 98 Intake & Output: Intake & Output 05/16/19 05/17/19 05/18/19 05/19/19 23:59 23:59 23:59 23:59 Intake Total 4055.000 1220 Output Total 1000 550 Balance 3055.000 670 - Objective General Appearance: positive: Other (Initially asleep. Quite deeply. Takes a little bit for her to wake up and answer my questions. But in no acute distress .) Eyes Bilateral: positive: PERRL ENT: positive: Pharynx nml Neck: positive: No JVD. negative: Stiff neck Respiratory: positive: Chest non-tender. negative: Wheezes, Rales, Rhonchi Cardiovascular: positive: Regular rate & rhythm. negative: Gallop/S4, Friction rub Abdomen: positive: Non-tender, Nml bowel sounds, No distention Skin: positive: Warm, Dry Extremities: positive: Full ROM, Pedal edema (Trace, nonpitting around her legs and ankles) Neurologic/Psychiatric: positive: Oriented x3, CN's nml (2-12), Motor nml - Lab Results Fish Bones: 05/19/19 05:09 05/19/19 05:09 Other Labs: Lab Results x24hrs 05/19/19 05/19/19 05/18/19 Range/Units 05:09 05:09 13:07 WBC 17.7 H (4.8-10.8) x10^3/uL RBC 3.96 L (4.20-5.40) 10^6/uL Hgb 11.7 L (12.0-16.0) g/dL Hct 36.8 L (37.0-47.0) % MCV 92.9 (81.0-99.0) fL MCH 29.5 (27.0-31.0) pg MCHC 31.8 L (32.0-36.0) g/dL RDW 13.7 (12.0-15.0) % Plt Count 366 (130-450) 10^3/uL MPV 9.9 (7.9-10.8) fL Neut # (Auto) 14.8 H (1.5-6.6) 10^3/uL Lymph # (Auto) 1.0 L (1.5-3.5) 10^3/uL Arch[place]ta # (Auto) 1.3 H (0.0-1.0) 10^3/uL Eos # (Auto) 0.3 (0.0-0.7) 10^3/uL Baso # (Auto) 0.0 (0.0-0.1) 10^3/uL Absolute Nucleated RBC 0.00 x10^3/uL Nucleated RBC % 0.0 /100WBC Sodium 145 (135-145) mmol/L Potassium 3.6 (3.5-5.0) mmol/L Chloride 117 H (101-111) mmol/L Carbon Dioxide 19 L (21-32) mmol/L Anion Gap 9.0 (6-13) BUN 19 (6-20) mg/dL Creatinine 1.4 H (0.4-1.0) mg/dL Estimated GFR (MDRD) 37 L (>89) Glucose 101 H (70-100) mg/dL Calcium 8.2 L (8.5-10.3) mg/dL Troponin I High Sens 16.8 H* (2.3-14.8) pg/mL ABX Reporting Has patient been on IV antibiotics over the past 48 hours?: Yes Sepsis Event Note (H) - Evaluation Current Stage of Sepsis: Resolved Possible source of Sepsis: positive: Genitourinary - Sepsis Criteria Sepsis Criteria: Recorded Heart Rate greater than 90 bpm, WBC count greater than 12,000 or less than 4000 Assessment/Plan - Problem List (1) UTI (urinary tract infection) Impression: She met sepsis criteria with pulse rate and elevated white cell count. She also had a change in mental status. Now resolved. Patient started on levaquin 750mg IV daily 05/18 Will dose q48h due to eGFR of 35 so next dose is 05/20 IV hydration with normal saline Urine culture pending today but blood cultues are negative. she has improved to be up out of bed, walking to bathroom. Anticipate dc tomorrow. Qualifiers: Urinary tract infection type: site unspecified Hematuria presence: without hematuria Qualified Code(s): N39.0 - Urinary tract infection, site not specified (2) Acute kidney injury Conclusion/Plan: ? 2/2 UTI vs medication Treating with levaquin. Hydrating patient. Hold meloxicam. Expect improvement: creat 1.5>1.4 today (3) Elevated troponin Conclusion/Plan: Mildly elevated ?2/2 Tachycardia and or renal injury Laboratory Tests 05/18/19 05/18/19 05/18/19 00:43 06:47 13:07 Troponin I High Sens 25.7 H* 20.5 H* 16.8 H* not felt to be clinically significant (4) Hypertension Conclusion/Plan: On carvedilol. Will continue today (5) Asthma Conclusion/Plan: Not in exacerbation On singulair. will order today. Will order duoneb prn when indicated. chest wall hurts from coughing. She wanted tessalong yesterday and now RT wants Mucinex so will order that as well. Qualifiers: Asthma severity: mild Asthma persistence: unspecified Asthma complication type: with acute exacerbation Qualified Code(s): J45.901 - Unspecified asthma with (acute) exacerbation (6) Depression Conclusion/Plan: On duloxetine, to resume today (7) Seizure activity as manifestation of blood transfusion reaction Conclusion/Plan: On topamax, already resumed (8) Osteoarthritis Conclusion/Plan: Hold meloxicam Tylenol prn (9) GERD (gastroesophageal reflux disease) Conclusion/Plan: Protonix ordered
[2019-05-19] MEDS: MULTIVITAMIN TABLET PO SCH (11:50)
[2019-05-19] MEDS: guaiFENesin 600 MG TABLET PO SCH ×2 (11:50→20:39)
[2019-05-19] MEDS: DULoxetine 30 MG CAPSULE PO SCH (11:50)
[2019-05-19] MEDS: CARVEDILOL 3.125 MG TABLET PO SCH ×2 (11:50→20:39)
[2019-05-19] MEDS: CLOPIDOGREL 75 MG TABLET PO SCH (11:52)
[2019-05-19] MEDS: MONTELUKAST 10 MG TABLET PO SCH (20:39)
[2019-05-19] MEDS: TOPIRAMATE 100 MG TABLET PO SCH (21:54)
[2019-05-19] MEDS: ACETAMINOPHEN 325 MG TABLET PO PRN (23:37)
[2019-05-20] MEDS ORDERED: levoFLOXacin 750 MG/150 ML 750 MG/150 ML BAG IV SCH (02:00)
[2019-05-20] MEDS ORDERED: SODIUM CHLORIDE FLUSH 0.9% 10 ML SYRINGE ONE (03:03)
[2019-05-20] MEDS: BENZONATATE 100 MG CAPSULE PO PRN (04:50)
[2019-05-20 05:29] LABS: BASOPHILS % (AUTO) 0.1 %; EOSINOPHILS # (AUTO) 0.3 10^3/uL (0.0-0.7); EOSINOPHILS % (AUTO) 2.8 %; HGB - HEMOGLOBIN 10.7 g/dL (12.0-16.0); LYMPHOCYTES # (AUTO) 1.1 10^3/uL (1.5-3.5); LYMPHOCYTES % (AUTO) 9.8 %; MEAN CORPUSCULAR HEMOGLOBIN 29.6 pg (27.0-31.0); MEAN CORPUSCULAR HGB CONC 31.1 g/dL (32.0-36.0); MEAN CORPUSCULAR VOLUME 95.3 fL (81.0-99.0); MEAN PLATELET VOLUME 10.1 fL (7.9-10.8); MONOCYTES # (AUTO) 0.9 10^3/uL (0.0-1.0); MONOCYTES % (AUTO) 7.9 %; NEUTROPHILS # (AUTO) 9.2 10^3/uL (1.5-6.6); NEUTROPHILS % (AUTO) 78.7 %; PLT - PLATELET COUNT 299 10^3/uL (130-450); RED BLOOD COUNT 3.61 10^6/uL (4.20-5.40); RED CELL DISTRIBUTION WIDTH 13.9 % (12.0-15.0); WHITE BLOOD COUNT 11.6 x10^3/uL (4.8-10.8)
[2019-05-20 05:36] LABS: CREATININE 1.1 mg/dL (0.4-1.0)
[2019-05-20] MEDS: SODIUM CHLORIDE 0.9% 1,000 ML IV SCH (06:12)
[2019-05-20] MEDS: PANTOPRAZOLE 40 MG TABLET PO SCH (06:13)
[2019-05-20 07:28] LABS: ABSOLUTE RETICS # AUTO 0.044 10^6/uL (0.020-0.110); RED BLOOD COUNT 3.6 10^6/uL (4.20-5.40)
[2019-05-20 07:49] LABS: % IRON SATURATION 51 % (20-50); IRON 58 ug/dL (28-170); TOTAL IRON BINDING CAPACITY 113 ug/dL (250-450); TRANSFERRIN 81 mg/dL (192-382)
[2019-05-20 08:02] LABS: FERRITIN 247.8 ng/mL (11.0-306.8)
[2019-05-20] MEDS: HEPARIN 5,000 UNIT/ML VIAL SUBQ SCH ×2 (09:24→21:11)
[2019-05-20] MEDS: POLYETHYLENE GLYCOL 3350 17 GM PACKET PO SCH (09:27)
[2019-05-20] MEDS: MULTIVITAMIN TABLET PO SCH (09:28)
[2019-05-20] MEDS: guaiFENesin 600 MG TABLET PO SCH ×2 (09:28→21:02)
[2019-05-20] MEDS: TOPIRAMATE 100 MG TABLET PO SCH ×2 (09:28→21:09)
[2019-05-20] MEDS: DULoxetine 30 MG CAPSULE PO SCH (09:28)
[2019-05-20] MEDS: CARVEDILOL 3.125 MG TABLET PO SCH ×2 (09:29→20:59)
[2019-05-20] MEDS: CLOPIDOGREL 75 MG TABLET PO SCH (09:29)
[2019-05-20] MEDS: POTASSIUM CHLORIDE 10 MEQ CAPSULE PO SCH (09:29)
[2019-05-20] MEDS: NYSTATIN POWDER 15 GM TOP SCH ×2 (09:32→21:16)
[2019-05-20] MEDS: IPRATROPIUM/ALBUTEROL 3 ML NEB INH PRN (09:37)
--- NOTE | 2019-05-20 10:37 | PROVIDER PROGRESS NOTE ---
Subjective - Prog Note Date Prog Note Date: 05/20/19 Prog Note Time: 11:01 - Subjective Subjective: she just is so tired. sleeping a lot. denies cp, sob. just tired. Current Medications - Current Medications Current Medications: Active Medications Acetaminophen (Tylenol) 650 mg PO Q4HR PRN PRN Reason: Pain 1 to 4 Last Admin: 05/19/19 23:37 Dose: 650 mg Albuterol/Ipratropium (Duoneb) 3 ml INH Q4HR PRN PRN Reason: Wheezing Last Admin: 05/20/19 09:37 Dose: 3 ml Benzonatate (Tessalon) 100 mg PO TID PRN PRN Reason: Cough Last Admin: 05/20/19 04:50 Dose: 100 mg Carvedilol (Coreg) 6.25 mg PO BID [facility] Last Admin: 05/20/19 09:29 Dose: 6.25 mg Clopidogrel Bisulfate (Plavix) 75 mg PO DAILY [facility] Last Admin: 05/20/19 09:29 Dose: 75 mg Duloxetine HCl (Cymbalta) 60 mg PO DAILY [facility] Last Admin: 05/20/19 09:28 Dose: 60 mg Guaifenesin (Mucinex) 600 mg PO BID [facility] Last Admin: 05/20/19 09:28 Dose: 600 mg Heparin Sodium (Porcine) () 5,000 unit SUBQ BID [facility] Last Admin: 05/20/19 09:24 Dose: 5,000 unit Levofloxacin (Levaquin 750 Mg/150 Ml) 750 mg in 150 mls @ 100 mls/hr IV Q48H [facility] Last Infusion: 05/20/19 04:00 Dose: Infused Ketorolac Tromethamine (Toradol Inj (15mg)) 15 mg IVP Q6HR PRN PRN Reason: PAIN Last Admin: 05/19/19 10:14 Dose: 15 mg Montelukast Sodium (Singulair) 10 mg PO QPM [facility] Last Admin: 05/19/19 20:39 Dose: 10 mg Multivitamins (Theragran) 1 tab PO DAILY [facility] Last Admin: 05/20/19 09:28 Dose: 1 tab Nystatin (Nystop) 1 applic TOP BID [facility] Last Admin: 05/20/19 09:32 Dose: 1 applic Ondansetron HCl (Zofran Odt) 4 mg TL Q6HR PRN PRN Reason: Nausea / Vomiting Pantoprazole Sodium (Protonix) 40 mg PO QDAC [facility] Last Admin: 05/20/19 06:13 Dose: 40 mg Polyethylene Glycol (Miralax) 17 gm PO DAILY [facility] Last Admin: 05/20/19 09:27 Dose: 17 gm Potassium Chloride (Micro-K) 10 meq PO DAILYWM [facility] Last Admin: 05/20/19 09:29 Dose: 10 meq Sodium Chloride (Normal Saline Flush 0.9%) 10 ml IVP PRN PRN PRN Reason: NEEDED PER PROVIDER ORDERS Last Admin: 05/19/19 10:14 Dose: 10 ml Sodium Chloride (Normal Saline Flush 0.9%) 10 ml IVP 0100,0900,1700 [facility] Last Admin: 05/19/19 23:37 Dose: Not Given Topiramate (Topamax) 200 mg PO DAILY [facility] Last Admin: 05/20/19 09:28 Dose: 200 mg Topiramate (Topamax) 150 mg PO QPM [facility] Last Admin: 05/19/19 21:54 Dose: 150 mg Clopidogrel [Plavix] 75 mg PO DAILY 10/22/13 Loratadine [Claritin] 10 mg PO DAILY 10/22/13 Multivitamin [Multi-Day Vitamins] 1 each PO DAILY 10/22/13 Topiramate [Topamax] 200 mg PO DAILY 10/22/13 Potassium Chloride [Klor-Con M10] 10 meq PO DAILYWM 11/30/15 Duloxetine HCl [Cymbalta] 60 mg PO DAILY 08/07/18 Melatonin/Pyridoxine [Melatonin 5 mg Tablet] 1 tab PO QPM 08/07/18 Meloxicam 15 mg PO DAILY 08/07/18 Carvedilol 6.25 mg PO BID 05/17/19 Lansoprazole 15 mg PO QDAC 05/17/19 Montelukast [Singulair] 10 mg PO QPM 05/17/19 Albuterol Sulfate [Proair Hfa Inhaler] 1 - 2 puffs INH Q4H PRN 05/18/19 Benzonatate [Tessalon] 100 - 200 mg PO TID PRN 05/18/19 Fluticasone [Flonase] 1 sprays NEHEMIAS BID 05/18/19 Ipratropium/Albuterol Sulfate [Iprat-Albut 0.5-3(2.5) mg/3 ml] 3 ml IH QID PRN 05/18/19 Topiramate [Topamax] 150 mg PO QPM 05/18/19 Objective - Vital Signs/Intake & Output Reviewed Vital Signs: Yes Vital Signs: Vital Signs x48h Temp Pulse Pulse Resp BP BP Pulse Ox 05/20/19 09:39 80 20 05/20/19 07:42 37 C 81 20 125/60 96 05/20/19 03:05 36.6 C 76 16 122/40 L 96 Intake & Output: Intake & Output 05/17/19 05/18/19 05/19/19 05/20/19 23:59 23:59 23:59 23:59 Intake Total 4055.000 2765 1195 Output Total 1000 650 500 Balance 3055.000 2115 695 - Objective General Appearance: positive: No acute distress, Other (morbidly obese, sleeping again, blinds to room closed, dark, breakfast at bedside table) Eyes Bilateral: positive: PERRL, EOMI ENT: positive: No signs of dehydration Neck: positive: No JVD Respiratory: positive: Chest non-tender, Other (diminished at bases). negative: Wheezes, Rales, Rhonchi Cardiovascular: positive: Regular rate & rhythm. negative: Gallop/S4, Friction rub Abdomen: positive: Non-tender, Nml bowel sounds, No distention Skin: positive: Warm, Dry Extremities: positive: Pedal edema Neurologic/Psychiatric: positive: Oriented x3, CN's nml (2-12), Motor nml, Other (able to get out of bed w/o assist to BR) - Lab Results Fish Bones: 05/20/19 05:10 05/20/19 05:10 Other Labs: Lab Results x24hrs 05/20/19 05/20/19 05/20/19 Range/Units 05:10 05:10 04:45 WBC 11.6 H (4.8-10.8) x10^3/uL RBC 3.61 L (4.20-5.40) 10^6/uL Hgb 10.7 L (12.0-16.0) g/dL Hct 34.4 L (37.0-47.0) % MCV 95.3 (81.0-99.0) fL MCH 29.6 (27.0-31.0) pg MCHC 31.1 L (32.0-36.0) g/dL RDW 13.9 (12.0-15.0) % Plt Count 299 (130-450) 10^3/uL MPV 10.1 (7.9-10.8) fL Reticulocyte % (Auto) (0.5-2.3) % Neut # (Auto) 9.2 H (1.5-6.6) 10^3/uL Lymph # (Auto) 1.1 L (1.5-3.5) 10^3/uL Noble # (Auto) 0.9 (0.0-1.0) 10^3/uL Eos # (Auto) 0.3 (0.0-0.7) 10^3/uL Baso # (Auto) 0.0 (0.0-0.1) 10^3/uL Absolute Nucleated RBC 0.00 x10^3/uL Nucleated RBC % 0.0 /100WBC Absolute Retic (0.020-0.110) 10^6/uL Sodium 142 (135-145) mmol/L Potassium 3.5 (3.5-5.0) mmol/L Chloride 118 H (101-111) mmol/L Carbon Dioxide 17 L (21-32) mmol/L Anion Gap 7.0 (6-13) BUN 17 (6-20) mg/dL Creatinine 1.1 H (0.4-1.0) mg/dL Estimated GFR (MDRD) 49 L (>89) Glucose 94 (70-100) mg/dL Calcium 8.0 L (8.5-10.3) mg/dL Iron (28-170) ug/dL TIBC (250-450) ug/dL % Saturation (20-50) % Transferrin (192-382) mg/dL Ferritin (11.0-306.8) ng/mL Lactate Dehydrogenase 114 (91-225) IU/L Vitamin B12 (180-914) pg/mL 05/20/19 05/20/19 05/20/19 Range/Units 04:45 04:45 04:45 WBC (4.8-10.8) x10^3/uL RBC 3.60 L (4.20-5.40) 10^6/uL Hgb (12.0-16.0) g/dL Hct (37.0-47.0) % MCV (81.0-99.0) fL MCH (27.0-31.0) pg MCHC (32.0-36.0) g/dL RDW (12.0-15.0) % Plt Count (130-450) 10^3/uL MPV (7.9-10.8) fL Reticulocyte % (Auto) 1.22 (0.5-2.3) % Neut # (Auto) (1.5-6.6) 10^3/uL Lymph # (Auto) (1.5-3.5) 10^3/uL Noble # (Auto) (0.0-1.0) 10^3/uL Eos # (Auto) (0.0-0.7) 10^3/uL Baso # (Auto) (0.0-0.1) 10^3/uL Absolute Nucleated RBC x10^3/uL Nucleated RBC % /100WBC Absolute Retic 0.044 (0.020-0.110) 10^6/uL Sodium (135-145) mmol/L Potassium (3.5-5.0) mmol/L Chloride (101-111) mmol/L Carbon Dioxide (21-32) mmol/L Anion Gap (6-13) BUN (6-20) mg/dL Creatinine (0.4-1.0) mg/dL Estimated GFR (MDRD) (>89) Glucose (70-100) mg/dL Calcium (8.5-10.3) mg/dL Iron 58 (28-170) ug/dL TIBC 113 L (250-450) ug/dL % Saturation 51 H (20-50) % Transferrin 81 L (192-382) mg/dL Ferritin 247.8 (11.0-306.8) ng/mL Lactate Dehydrogenase (91-225) IU/L Vitamin B12 772 (180-914) pg/mL ABX Reporting Has patient been on IV antibiotics over the past 48 hours?: Yes Sepsis Event Note (H) - Evaluation Current Stage of Sepsis: Resolved Possible source of Sepsis: positive: Genitourinary - Sepsis Criteria Sepsis Criteria: Recorded Heart Rate greater than 90 bpm, WBC count greater than 12,000 or less than 4000 Assessment/Plan - Problem List (1) UTI (urinary tract infection) Impression: She met sepsis criteria with pulse rate and elevated white cell count. She also had a change in mental status. Now resolved. Patient started on levaquin 750mg IV daily 05/18 Will dose q48h due to eGFR of 35 so next dose is 05/20, 05/22, 05/24 IV hydration with normal saline Urine culture pending from 05/19 but blood cultures from 05/17 are negative. she has improved to be up out of bed, walking to bathroom. Anticipated dc today but she feels too tired. WBC is still 12K. DC in am. Qualifiers: Urinary tract infection type: site unspecified Hematuria presence: without hematuria Qualified Code(s): N39.0 - Urinary tract infection, site not specified (2) Acute kidney injury resolving Conclusion/Plan: ? 2/2 UTI vs medication Treating with levaquin. Hydrating patient. Hold meloxicam. Expect improvement: creat 1.5>1.4>1.1 today (3) Elevated troponin resolved Conclusion/Plan: Mildly elevated ?2/2 Tachycardia and or renal injury Laboratory Tests 05/18/19 05/18/19 05/18/19 00:43 06:47 13:07 Troponin I High Sens 25.7 H* 20.5 H* 16.8 H* not felt to be clinically significant (4) Hypertension Conclusion/Plan: On carvedilol. Systolic 115-122 today. Will continue without change (5) Asthma Conclusion/Plan: Not in exacerbation On singulair, duoneb, tessalon perles, mucinex prn and stable Qualifiers: Asthma severity: mild Asthma persistence: unspecified Asthma complication type: with acute exacerbation Qualified Code(s): J45.901 - Unspecified asthma with (acute) exacerbation (6) Depression Conclusion/Plan: On duloxetine,resumed (7) Seizure activity as manifestation of blood transfusion reaction Conclusion/Plan: On topamax, already resumed (8) Osteoarthritis Conclusion/Plan: Hold meloxicam Tylenol prn
[2019-05-20] MEDS: SODIUM CHLORIDE FLUSH 0.9% 10 ML SYRINGE IVP SCH ×2 (13:13→17:34)
[2019-05-20] MEDS: ACETAMINOPHEN 325 MG TABLET PO PRN ×2 (17:59→22:53)
[2019-05-20] MEDS ORDERED: TOPIRAMATE 100 MG TABLET PO SCH (21:00)
[2019-05-20] MEDS: MONTELUKAST 10 MG TABLET PO SCH (21:03)
[2019-05-21] MEDS: SODIUM CHLORIDE FLUSH 0.9% 10 ML SYRINGE IVP SCH ×2 (00:19→08:24)
[2019-05-21] MEDS: PANTOPRAZOLE 40 MG TABLET PO SCH (06:22)
[2019-05-21] MEDS: POTASSIUM CHLORIDE 10 MEQ CAPSULE PO SCH (08:22)
[2019-05-21] MEDS: MULTIVITAMIN TABLET PO SCH (08:22)
[2019-05-21] MEDS: DULoxetine 30 MG CAPSULE PO SCH (08:23)
[2019-05-21] MEDS: CARVEDILOL 3.125 MG TABLET PO SCH (08:23)
[2019-05-21] MEDS: TOPIRAMATE 100 MG TABLET PO SCH (08:24)
[2019-05-21] MEDS: CLOPIDOGREL 75 MG TABLET PO SCH (08:24)
[2019-05-21] MEDS: guaiFENesin 600 MG TABLET PO SCH (08:24)
[2019-05-21] MEDS: KETOROLAC 15 MG/ML VIAL IVP PRN (08:24)
[2019-05-21] MEDS: HEPARIN 5,000 UNIT/ML VIAL SUBQ SCH (08:26)
[2019-05-21] MEDS: NYSTATIN POWDER 15 GM TOP SCH (08:30)
[2019-05-21] MEDS: POLYETHYLENE GLYCOL 3350 17 GM PACKET PO SCH (08:34)
--- NOTE | 2019-05-21 08:57 | Discharge Plan ---
Discharge Plan Problem Reviewed?: Yes Disposition: Home, Self Care Condition: Stable Prescriptions: Levofloxacin [Levaquin] 500 mg PO DAILY #4 tablet Diet: Cardiac Activity Restrictions: Activity as Tolerated Shower Restrictions: No Instruction Topics: UTI Health Concerns: Admitted with sepsis and dehydration from bacterial urinary tract infection. Plan of Treatment: Finish a course of antibiotics, a new outpatient prescription was sent to pharmacy. Care Goals: Stay well hydrated, increase activity as tolerated. Assessment: The patient is in agreement with the plan. No Smoking: If you smoke, Please STOP! Call for help. Follow-up with: Irma Brock PA [Provider Admit Priv/Credential] -
[2019-05-21 15:33] VITALS: BP 125/57
--- NOTE | 2019-05-23 16:24 | DISCHARGE SUMMARY ---
Discharge Summary Admit Date: 05/18/19 Discharge Date: 05/21/19 Discharging Provider: Dr Sofi Waters Primary Care Provider: HARPER Arrington Code Status: Attempt Resuscitation Condition at Discharge: Stable Discharge Disposition: 01 Home, Self Care - DIAGNOSES Admission Diagnoses: 1) Sepsis 2) UTI 3) TIANA 4) Elevated troponin 5) Hx asthma 6) Hx HTN 7) Obesity Discharge Diagnoses with Status of Each Condition: See below - HPI History of Present Illness: From the H&P of Dr Vaughn: Patient is a 68 y/o F who presented to the ED with complain of weakness. She had gone to use the bathroom this evening but was too weak to get off the toilet seat and required the help of a family member. As a result she was brought to the ED to be evaluated. She reports a nonproductive cough she has been having for a couple weeks. She reports chills but no fever. She denied chest pain, abd pain, nausea or vomiting. In the ED she was found to have a WBC of 25 and a UA was strongly suggestive of a UTI. She denied increase urinary frequency, dysuria, change in odor or color. At bedside she was breathing on room air, talking in full sentences without dyspnea and appears comfortable. As a result of her presentation, she is being admitted for further treatment. - HOSPITAL COURSE Hospital Course: (1) Sepsis She had a recorded Heart Rate greater than 90 bpm, WBC count greater than 12,000 and signs metal status change and signs of infection by urinalysis. She was started on iv fluids with Normal Saline. Blood and urine cultures were sent and iv antibiotics begun. (2) UTI (urinary tract infection) The urinalysis showed High Protein, Large Leukocyte Esterase, Many WBCs, and Moderate bacteria. She was started on empiric Levaquin 750mg IV daily 05/18. The dose was changed to q48h due to a GFR of 35. Blood cultures from 05/17 were negative. Urine culture grew Aerococcus urinae. At the time of discharge, no sensitivities were available. She was discharged with a prescription for 4 more days of oral Levaquin. (3) Acute kidney injury, resolving Her creat was 1.5>1.4>1.1. It was likely abnormal due to volume depletion but may have been from the infection or Meloxicam use, which was stopped while she was here. (4) Elevated troponin, resolved Mildly elevated high sensitivity Troponins were seen: 25.7>> 20.5>> 16.8. This may have been from tachycardia and/or renal injury. the pattern was not felt to be due to GA. (5) HTN She was not hypotensive, even with the sepsis. She was kept on her usual BP meds while here. (6) Hx asthma There was no wheezing or desaturations. (7) Depression Her affect was flat. She was kept on her usual psychiatric meds while here. (8) Hx seizures Her seizure meds were continued. (9) Osteoarthritis Meloxicam needed to be stopped (see above). (10) Morbid Obesity, BMI 39.5 The patient admitted that she is nearly immobile at home. - ALLERGIES Allergies/Adverse Reactions: Allergies Allergy/AdvReac Type Severity Reaction Status Date / Time Penicillins Allergy Severe Respiratory Verified 05/17/19 23:13 amitriptyline [From Elavil] Allergy Unknown Verified 05/17/19 23:13 aspirin Allergy resp Verified 05/17/19 23:13 diphenhydramine HCl * Allergy Hives Verified 05/17/19 23:13 [From Benadryl] divalproex sodium Allergy Unknown Verified 05/17/19 23:13 iodine Allergy resp Verified 05/17/19 23:13 micafungin sodium * Allergy Anaphylaxis Verified 05/17/19 23:13 [From Mycamine] oxytetracycline Allergy resp Verified 05/17/19 23:13 [From Terramycin] oxytetracycline HCl * Allergy resp Verified 05/17/19 23:13 [From Terramycin] prednisone Allergy Unknown Verified 05/17/19 23:13 valproate sodium * AdvReac Nausea Verified 05/17/19 23:13 [From Depakene] valproic acid [From Depakene] AdvReac Nausea Verified 05/17/19 23:13 - MEDICATIONS Home Medications: Ambulatory Orders Medication Instructions Recorded Confirmed Clopidogrel [Plavix] 75 mg PO DAILY 10/22/13 05/18/19 Loratadine [Claritin] 10 mg PO DAILY 10/22/13 05/18/19 Multivitamin [Multi-Day Vitamins] 1 each PO DAILY 10/22/13 05/18/19 Topiramate [Topamax] 200 mg PO DAILY 10/22/13 05/18/19 Potassium Chloride [Klor-Con M10] 10 meq PO DAILYWM 11/30/15 05/18/19 Duloxetine HCl [Cymbalta] 60 mg PO DAILY 08/07/18 05/18/19 Melatonin/Pyridoxine [Melatonin 5 1 tab PO QPM 08/07/18 05/18/19 mg Tablet] Meloxicam 15 mg PO DAILY 08/07/18 05/18/19 Carvedilol 6.25 mg PO BID 05/17/19 05/17/19 Lansoprazole 15 mg PO QDAC 05/17/19 05/18/19 Montelukast [Singulair] 10 mg PO QPM 05/17/19 05/17/19 Albuterol Sulfate [Proair Hfa 1 - 2 puffs INH Q4H PRN 05/18/19 05/18/19 Inhaler] Benzonatate [Tessalon] 100 - 200 mg PO TID PRN 05/18/19 05/18/19 Fluticasone [Flonase] 1 sprays NEHEMIAS BID 05/18/19 05/18/19 Ipratropium/Albuterol Sulfate 3 ml IH QID PRN 05/18/19 05/18/19 [Iprat-Albut 0.5-3(2.5) mg/3 ml] Topiramate [Topamax] 150 mg PO QPM 05/18/19 05/18/19 Levofloxacin [Levaquin] 500 mg PO DAILY #4 tablet 05/21/19 - PHYSICAL EXAM AT DISCHARGE General Appearance: positive: No acute distress, Other (Flat affect) Eyes Bilateral: positive: Normal inspection, PERRL ENT: positive: ENT inspection nml, No signs of dehydration Neck: positive: Nml inspection, No JVD Respiratory: positive: No respiratory distress, Breath sounds nml Cardiovascular: positive: No murmur Abdomen: positive: Non-tender, Other (Obese with pannus) Extremities: positive: No pedal edema - LABS Result Diagrams: 05/20/19 05:10 05/20/19 05:10 - DIAGNOSTIC IMAGING Diagnostic Imaging Results: Final report reviewed - SEPSIS Current Stage of Sepsis: Resolved Possible source of Sepsis: Genitourinary Sepsis Criteria: Recorded Heart Rate greater than 90 bpm, WBC count greater than 12,000 or less than 4000, UNDERPRESSER HAND: altered consciousness (unrelated to primary neuro pathology) - FOLLOW UP Follow Up: See PCP, HARPER Arrington, in 5-10 days for hospital follow-up. - TIME SPENT Time Spent in Discharge (Minutes): 45
== END 2019-05-21 15:30 | disposition home or self-care (01) | DRG 872 ==
LOC: EDUNIT# → ED 23:04 → UNDOADMIN 05-18 01:14 → MS2 05-18 01:14 → UNDODISIN 05-21 15:30
PROVIDERS: ADMIT Internal Medicine; ATTEND Internal Medicine
DX: I21.4 Non-ST elevation (NSTEMI) myocardial infarction (principal); A41.89 Other specified sepsis; N39.0 Urinary tract infection, site not specified; R91.8 Other nonspecific abnormal finding of lung field; N17.9 Acute kidney failure, unspecified; J45.909 Unspecified asthma, uncomplicated; I10 Essential (primary) hypertension; T39.395A Adverse effect of other nonsteroidal anti-inflammatory drugs [NSAID], initial encounter; Y92.002 Bathroom of unspecified non-institutional (private) residence as the place of occurrence of the external cause; E86.9 Volume depletion, unspecified; F32.9 Major depressive disorder, single episode, unspecified; G40.909 Epilepsy, unspecified, not intractable, without status epilepticus; T80.89XS Other complications following infusion, transfusion and therapeutic injection, sequela; M19.90 Unspecified osteoarthritis, unspecified site; E66.01 Morbid (severe) obesity due to excess calories; K21.9 Gastro-esophageal reflux disease without esophagitis; B37.2 Candidiasis of skin and nail; Z68.39 Body mass index [BMI] 39.0-39.9, adult; Z79.899 Other long term (current) drug therapy; Z88.0 Allergy status to penicillin; Z79.02 Long term (current) use of antithrombotics/antiplatelets; Z86.73 Personal history of transient ischemic attack (TIA), and cerebral infarction without residual deficits
CPT/HCPCS: 36415; 51701; 71045; 80048; 80053; 81001; 82607; 82728; 83540; 83605; 83615; 83690; 83880; 84466; 84484; 85025; 85044; 85610; 85730; 87040; 87086; 93005; 94640; 97116; 97161; 97166; 99285; A9270; 81003

== ENCOUNTER 2019-06-02 08:00 | Outpatient (CLI) | payer MEDICARE ==
[2019-06-02 18:39] LABS: BASOPHILS % (AUTO) 0.1 %; EOSINOPHILS # (AUTO) 0.1 10^3/uL (0.0-0.7); EOSINOPHILS % (AUTO) 0.6 %; HGB - HEMOGLOBIN 13.7 g/dL (12.0-16.0); LYMPHOCYTES # (AUTO) 1.1 10^3/uL (1.5-3.5); LYMPHOCYTES % (AUTO) 9.7 %; MEAN CORPUSCULAR HEMOGLOBIN 29.1 pg (27.0-31.0); MEAN CORPUSCULAR VOLUME 93.8 fL (81.0-99.0); MEAN PLATELET VOLUME 11.2 fL (7.9-10.8); MONOCYTES % (AUTO) 8.6 %; NEUTROPHILS # (AUTO) 9.3 10^3/uL (1.5-6.6); NEUTROPHILS % (AUTO) 80.6 %; PLT - PLATELET COUNT 491 10^3/uL (130-450); RED BLOOD COUNT 4.71 10^6/uL (4.20-5.40); RED CELL DISTRIBUTION WIDTH 13.8 % (12.0-15.0); WHITE BLOOD COUNT 11.6 x10^3/uL (4.8-10.8)
[2019-06-02 18:51] LABS: ALBUMIN 3.6 g/dL (3.2-5.5); ALBUMIN/GLOBULIN RATIO 0.9 (1.0-2.2); BILIRUBIN,TOTAL 0.5 mg/dL (0.2-1.0); CALCIUM 9.2 mg/dL (8.5-10.3); CREATININE 1.1 mg/dL (0.4-1.0); TOTAL PROTEIN 7.6 g/dL (6.7-8.2)
== END 2019-06-02 23:59 | disposition home or self-care (01) ==
LOC: LAB.WCP 08:00
PROVIDERS: ATTEND Physician Assistant
DX: N39.0 Urinary tract infection, site not specified (principal); R06.2 Wheezing; R05 Cough
CPT/HCPCS: 36415; 71046; 80053; 85025

== ENCOUNTER 2019-06-02 15:18 | Outpatient (CLI) | payer MEDICARE ==
--- NOTE | 2019-06-03 00:35 | XRAY Report ---
Reason: COUGH,WHEEZING Procedure Date: 06/02/2019 Accession Number: [id number] / [id number] Procedure: WCP - Chest 2 View X-Ray CPT Code: 43439 FULL RESULT: EXAM: CHEST RADIOGRAPHY EXAM DATE: 06/02/2019 03:43 PM. CLINICAL HISTORY: COUGH, WHEEZING. COMPARISON: CHEST 1 VIEW 05/17/2019 11:25 PM. TECHNIQUE: 2 views. FINDINGS: Lungs/Pleura: No focal opacities evident. No pleural effusion. No pneumothorax. Normal volumes. Mediastinum: Heart and mediastinal contours are unremarkable. Other: Right upper lobe surgical clips. IMPRESSION: No acute cardiopulmonary disease seen. RADIA
== END 2019-06-02 23:59 | disposition home or self-care (01) ==
LOC: DI.WCP 15:18
PROVIDERS: ATTEND Physician Assistant
DX: R06.2 Wheezing (principal); R05 Cough
CPT/HCPCS: 71046

== ENCOUNTER 2019-06-25 08:00 | Outpatient (CLI) | payer MEDICARE ==
[2019-06-25 18:30] LABS: BILIRUBIN,URINE NEGATIVE (NEGATIVE); GLUCOSE, URINE (UA) NEGATIVE (NEGATIVE); KETONES,URINE (UA) NEGATIVE (NEGATIVE); LEUKOCYTE ESTERASE, URINE LARGE (NEGATIVE); NITRITE,URINE NEGATIVE (NEGATIVE); OCCULT BLOOD,URINE SMALL (NEGATIVE); PROTEIN,URINE NEGATIVE (NEGATIVE); UROBILINOGEN,URINE 0.2 (NORMAL) E.U./dL (NORMAL)
[2019-06-25 18:33] LABS: CLARITY,URINE HAZY (CLEAR)
[2019-06-25 18:46] LABS: BACTERIA,URINE Few /HPF (None Seen); RBC,URINE 0-5 /HPF (0-5); SQUAMOUS EPITHELIAL CELL,UR MOD Squamous (<= Few); WBC CLUMPS,URINE PRESENT
== END 2019-06-25 08:01 | disposition home or self-care (01) ==
LOC: LAB.R 08:00
PROVIDERS: ATTEND Physician Assistant
DX: N39.0 Urinary tract infection, site not specified (principal)
CPT/HCPCS: 81001; 87086

== ENCOUNTER 2020-10-14 08:00 | Outpatient (CLI) | payer MEDICARE ==
[2020-10-14 18:18] LABS: BASOPHILS % (AUTO) 0.1 %; HGB - HEMOGLOBIN 13.2 g/dL (12.0-16.0); LYMPHOCYTES # (AUTO) 1.4 10^3/uL (1.5-3.5); MEAN CORPUSCULAR HEMOGLOBIN 28.6 pg (27.0-31.0); MEAN CORPUSCULAR HGB CONC 31.1 g/dL (32.0-36.0); MEAN PLATELET VOLUME 10.7 fL (7.9-10.8); MONOCYTES # (AUTO) 0.7 10^3/uL (0.0-1.0); MONOCYTES % (AUTO) 7.7 %; NEUTROPHILS # (AUTO) 6.8 10^3/uL (1.5-6.6); NEUTROPHILS % (AUTO) 75.9 %; PLT - PLATELET COUNT 341 10^3/uL (130-450); RED BLOOD COUNT 4.62 10^6/uL (4.20-5.40); RED CELL DISTRIBUTION WIDTH 14.8 % (12.0-15.0); WHITE BLOOD COUNT 8.9 x10^3/uL (4.8-10.8)
[2020-10-14 18:46] LABS: ALBUMIN 3.8 g/dL (3.2-5.5); ALKALINE PHOSPHATASE 98 IU/L (42-121); ALT ALANINE AMINOTRANSFERASE 18 IU/L (10-60); AST ASPARTATE AMINOTRANSFERASE 25 IU/L (10-42); BILIRUBIN,TOTAL 0.5 mg/dL (0.2-1.0); BUN - BLOOD UREA NITROGEN 29 mg/dL (6-20); CALCIUM 9.3 mg/dL (8.5-10.3); CARBON DIOXIDE - CO2 22 mmol/L (21-32); CHLORIDE 107 mmol/L (101-111); CHOL/HDL RATIO 3.2 (<4.4); CHOLESTEROL 168 mg/dL; CREATININE 1.3 mg/dL (0.4-1.0); GLUCOSE 155 mg/dL (70-100); HDL CHOLESTEROL 52 mg/dL; LDL CHOLESTEROL,CALCULATED 95 mg/dL; LDL/HDL RATIO 1.8 (<4.4); TOTAL PROTEIN 7.5 g/dL (6.7-8.2); VLDL CHOLESTEROL 21 mg/dL
[2020-10-14 18:52] LABS: HEMOGLOBIN A1c% 5.5 % (4.27-6.07)
== END 2020-10-14 23:59 | disposition home or self-care (01) ==
LOC: LAB.WCP 08:00
PROVIDERS: ATTEND Physician Assistant
DX: R73.9 Hyperglycemia, unspecified (principal); R03.0 Elevated blood-pressure reading, without diagnosis of hypertension; Z79.899 Other long term (current) drug therapy
CPT/HCPCS: 36415; 80053; 80061; 83036; 83721; 85025

== ENCOUNTER 2021-03-20 22:02 | Outpatient (CLI) | payer MEDICARE | END 2021-03-20 22:03 | disposition EMS.NT | LOC: EMS 22:02 | DX: Z03.89 Encounter for observation for other suspected diseases and conditions ruled out (principal) ==

== ENCOUNTER 2021-05-11 12:16 | Outpatient (CLI) | payer MEDICARE ==
--- NOTE | 2021-05-11 16:22 | XRAY Report ---
PROCEDURE: Forearm RT INDICATIONS: SPRAIN OF CARPAL JOINT, RIGHT TECHNIQUE: 2 views of the forearm were acquired. COMPARISON: None FINDINGS: Bones: No fractures or dislocations. No suspicious bony lesions. Mild elbow joint osteoarthritis. Soft tissues: No suspicious soft tissue calcifications or masses. IMPRESSION: No fracture. No acute osseous lesion. If there persistent symptoms or continued clinical concern for pathology, then repeat plain film radiographs (7-10 days) or advanced imaging (CT, MR, bone scan) herbert uld be considered for further evaluation. Reviewed by: Rose Bynum MD, PhD on 05/11/2021 4:20 PM PDT Approved by: Rose Bynum MD, PhD on 05/11/2021 4:20 PM PDT Station ID: [id number]
--- NOTE | 2021-05-11 16:23 | XRAY Report ---
PROCEDURE: Hand 3 View RT INDICATIONS: HAND PAIN, RIGHT TECHNIQUE: 3. views of the hand(s) acquired. COMPARISON: None FINDINGS: Bones: No fractures or dislocations. No suspicious bony lesions. Osteoarthritis noted in the distal interphalangeal joints and the first CMC joints Soft tissues: No suspicious soft tissue calcifications. IMPRESSION: No fracture. No acute osseous lesion. If there persistent symptoms or continued clinical concern for pathology, then repeat plain film radiographs (7-10 days) or advanced imaging (CT, MR, bone scan) herbert uld be considered for further evaluation. Reviewed by: Rose Bynum MD, PhD on 05/11/2021 4:21 PM PDT Approved by: Rose Bynum MD, PhD on 05/11/2021 4:21 PM PDT Station ID: [id number]
--- NOTE | 2021-05-11 16:24 | XRAY Report ---
PROCEDURE: Wrist 4 View RT INDICATIONS: SPRAIN OF CARPAL JOINT, RIGHT WRIST TECHNIQUE: 4 views of the wrist were acquired. COMPARISON: None FINDINGS: Bones: No fractures or dislocations. No suspicious bony lesions. Mild CMC joint osteoarthritis. Scaphoid view: Scaphoid is intact. Soft tissues: No suspicious soft tissue calcifications. IMPRESSION: No fracture. No acute osseous lesion. If there are persistent symptoms or continued clinical concern for pathology, then repeat plain film radiographs (7-10 days) or advanced imaging (CT, MR, bone scan) should be considered for further evaluation. Reviewed by: Rose Bynmu MD, PhD on 05/11/2021 4:23 PM PDT Approved by: Rose Bynum MD, PhD on 05/11/2021 4:23 PM PDT Station ID: [id number]
== END 2021-05-11 12:17 | disposition home or self-care (01) ==
LOC: DI.N 12:16
PROVIDERS: ATTEND Nurse Practitioner
DX: M19.031 Primary osteoarthritis, right wrist (principal); M19.041 Primary osteoarthritis, right hand; M19.021 Primary osteoarthritis, right elbow

== ENCOUNTER 2021-08-09 11:36 | Outpatient (CLI) | payer MEDICARE ==
[2021-08-09 17:58] LABS: EOSINOPHILS % (AUTO) 0.1 %; HCT - HEMATOCRIT 45.3 % (37.0-47.0); HGB - HEMOGLOBIN 13.8 g/dL (12.0-16.0); LYMPHOCYTES # (AUTO) 1.4 10^3/uL (1.5-3.5); LYMPHOCYTES % (AUTO) 18.2 %; MEAN CORPUSCULAR HEMOGLOBIN 28.2 pg (27.0-31.0); MEAN CORPUSCULAR HGB CONC 30.5 g/dL (32.0-36.0); MEAN CORPUSCULAR VOLUME 92.4 fL (81.0-99.0); MEAN PLATELET VOLUME 10.3 fL (7.9-10.8); MONOCYTES # (AUTO) 0.7 10^3/uL (0.0-1.0); MONOCYTES % (AUTO) 9.1 %; NEUTROPHILS # (AUTO) 5.7 10^3/uL (1.5-6.6); NEUTROPHILS % (AUTO) 72.2 %; PLT - PLATELET COUNT 423 10^3/uL (130-450); RED CELL DISTRIBUTION WIDTH 14.5 % (12.0-15.0); WHITE BLOOD COUNT 7.9 x10^3/uL (4.8-10.8)
[2021-08-09 18:12] LABS: ALBUMIN 3.9 g/dL (3.2-5.5); BILIRUBIN,TOTAL 0.5 mg/dL (0.2-1.0); CALCIUM 9.3 mg/dL (8.5-10.3); CREATININE 1.1 mg/dL (0.4-1.0); POTASSIUM 3.7 mmol/L (3.5-5.0); TOTAL PROTEIN 7.9 g/dL (6.7-8.2)
[2021-08-09 18:20] LABS: THYROID STIMULATING HORMONE 1.31 uIU/mL (0.34-5.60)
[2021-08-09 20:42] LABS: ESTIMATED AVERAGE GLUCOSE 117 mg/dL (70-100); HEMOGLOBIN A1c% 5.7 % (4.27-6.07)
== END 2021-08-09 11:37 | disposition home or self-care (01) ==
LOC: LAB.N 11:36
PROVIDERS: ATTEND Nurse Practitioner
DX: R10.9 Unspecified abdominal pain (principal); R41.3 Other amnesia; R73.9 Hyperglycemia, unspecified
CPT/HCPCS: 36415; 80053; 82150; 82607; 83036; 83690; 84443; 85025

== ENCOUNTER 2021-08-09 11:43 | Outpatient (CLI) | payer MEDICARE ==
--- NOTE | 2021-08-10 00:06 | XRAY Report ---
PROCEDURE: Abdomen 1 View X-Ray INDICATIONS: ABD PAIN TECHNIQUE: 1 view of the abdomen were acquired. COMPARISON: None FINDINGS: Surgical changes and devices: None. Bowel: No pneumoperitoneum. The bowel gas pattern is nonobstructive. Moderate colonic stool is pres ent. Soft tissues: No masses; visualized solid organ contours appear normal in size. 5 mm focus of increa sed density is noted overlying the medial aspect of the left renal shadow. Bones: No suspicious bony abnormalities. IMPRESSION: 1. Moderate colonic stool consistent with constipation. No obstruction. 2. Calcification overlying the left renal shadow possibly nephrolithiasis. Reviewed by: Dana Hutton MD on 08/10/2021 12:04 AM PDT Approved by: Dana Hutton MD on 08/10/2021 12:04 AM PDT Station ID: [id number]
--- NOTE | 2021-08-10 02:21 | XRAY Report ---
PROCEDURE: Lumbar Spine 2 View INDICATIONS: LOW BACK PAIN TECHNIQUE: 3 views of the lumbar spine were acquired. COMPARISON: None. FINDINGS: Bones: 5 [id number] vertebrae are present. There is straightening of normal lumbar curvature. Overall moderate degenerative disc space narrowing is present most severe at T12-L1 as well as L5-S1. Severe foraminal narrowing is present at L5-S1, moderate to severe at L3-4 and L4-5. No vertebral guilherme dy compression fractures. No suspicious bony lesions. Soft tissues: Overlying bowel gas pattern is normal. No suspicious soft tissue calcifications. IMPRESSION: Multilevel degenerative changes most severe at L5-S1. Reviewed by: Dana Hutton MD on 08/10/2021 1:19 AM PDT Approved by: Dana Hutton MD on 08/10/2021 1:19 AM PDT Station ID: [id number]
== END 2021-08-09 11:44 | disposition home or self-care (01) ==
LOC: DI.N 11:43
PROVIDERS: ATTEND Nurse Practitioner
DX: R10.9 Unspecified abdominal pain (principal); M54.50 Low back pain, unspecified; R41.3 Other amnesia; R73.9 Hyperglycemia, unspecified; M47.817 Spondylosis without myelopathy or radiculopathy, lumbosacral region
CPT/HCPCS: 36415; 80053; 82150; 82607; 83036; 83690; 84443; 85025

== ENCOUNTER 2022-01-02 10:46 | Outpatient (CLI) | payer MEDICARE | END 2022-01-02 10:47 | disposition critical access hospital (66) | LOC: EMS 10:46 | DX: R53.1 Weakness (principal) | CPT/HCPCS: A0425; A0429 ==

== ENCOUNTER 2022-01-02 11:16 | Emergency (ER) | payer MEDICARE ==
[2022-01-02] MEDS ORDERED: SODIUM CHLORIDE 0.9% 1,000 ML IV STA ×3 (12:02→14:18)
[2022-01-02 12:45] LABS: BASOPHILS % (AUTO) 0.1 %; HCT - HEMATOCRIT 37.7 % (37.0-47.0); HGB - HEMOGLOBIN 11.8 g/dL (12.0-16.0); LYMPHOCYTES % (AUTO) 7.4 %; MEAN CORPUSCULAR HEMOGLOBIN 29.1 pg (27.0-31.0); MEAN CORPUSCULAR HGB CONC 31.3 g/dL (32.0-36.0); MEAN CORPUSCULAR VOLUME 93.1 fL (81.0-99.0); MEAN PLATELET VOLUME 10.3 fL (7.9-10.8); MONOCYTES % (AUTO) 7.4 %; NEUTROPHILS % (AUTO) 84.6 %; PLT - PLATELET COUNT 311 10^3/uL (130-450); RED BLOOD COUNT 4.05 10^6/uL (4.20-5.40); RED CELL DISTRIBUTION WIDTH 16.2 % (12.0-15.0)
[2022-01-02 12:51] LABS: ALBUMIN 3.2 g/dL (3.2-5.5); BILIRUBIN,TOTAL 0.5 mg/dL (0.2-1.0); CREATININE 1.3 mg/dL (0.4-1.0); POTASSIUM 4.3 mmol/L (3.5-5.0); TOTAL PROTEIN 6.3 g/dL (6.7-8.2)
[2022-01-02 15:02] LABS: BILIRUBIN,URINE NEGATIVE (NEGATIVE); GLUCOSE, URINE (UA) NEGATIVE (NEGATIVE); KETONES,URINE (UA) NEGATIVE (NEGATIVE); LEUKOCYTE ESTERASE, URINE LARGE (NEGATIVE); NITRITE,URINE POSITIVE (NEGATIVE); OCCULT BLOOD,URINE MODERATE (NEGATIVE); PH,URINE 5.5 PH (5.0-7.5); PROTEIN,URINE TRACE mg/dL (NEGATIVE); UROBILINOGEN,URINE 0.2 (NORMAL) E.U./dL (NORMAL)
[2022-01-02 15:04] LABS: CLARITY,URINE HAZY (CLEAR)
[2022-01-02 15:13] LABS: BACTERIA,URINE Moderate /HPF (None Seen); SQUAMOUS EPITHELIAL CELL,UR FEW Squamous (<= Few); WBC,URINE >25 /HPF (0-5)
[2022-01-02] MEDS ORDERED: CIPROFLOXACIN 400 MG/200 ML 400 MG/200 ML BAG IV STA (15:22)
[2022-01-02] MEDS ORDERED: CIPROFLOXACIN 250 MG TABLET PO STA (15:29)
[2022-01-02 16:17] VITALS: BP 163/83
--- NOTE | 2022-01-02 16:20 | ED Physician Documentation ---
History of Present Illness - Stated complaint Stated Complaint: FALL/WEAK - Chief complaint Chief Complaint: General - History obtained from History obtained from: Patient, EMS - Additonal information Additional information: The patient comes to the emergency department by EMS For chief complaint of generalized weakness after calling EMS for lift assist. EMS reports that they were called for ground-level fall/lift assist and when they got there, the patient stated that she was "on her way to her doctor's office to sign up for Medicaid." The corroborated this statement, and and plan was to get patient up and help her into the car per EMS. However, it was discovered that the patient was so generally weak that she really could not get into the car. The reported that the patient had seemed to be more weak over the last few weeks but was not obviously ill with anything. The patient states that she did not really realize she was weak. She states that she has not been getting out of bed to speak up for the last few weeks because she just does not feel motivated to do so. Additionally, whenever she does get up with her walker, she seems to fall down. This also makes her even less enthusiastic about getting up. The patient denies focal weakness. She denies any specific symptoms of infection, such as cough or dysuria. No abdominal or chest pain. Medics report that the patient was sitting slumped in the doorway, but had no traumatic complaints and did not appear to have hit her head. Patient is alert and cognitively intact, and Is her own decision maker. She lives at home with her son and . Review of Systems Ten Systems: 10 systems reviewed and negative Constitutional: reports: Reviewed and negative Eyes: reports: Reviewed and negative Ears: reports: Reviewed and negative Nose: reports: Reviewed and negative Throat: reports: Reviewed and negative Cardiac: reports: Reviewed and negative Respiratory: reports: Reviewed and negative GI: reports: Reviewed and negative : reports: Reviewed and negative Skin: reports: Reviewed and negative Musculoskeletal: reports: Reviewed and negative Neurologic: reports: Generalized weakness Psychiatric: reports: Reviewed and negative Endocrine: reports: Reviewed and negative Immunocompromised: reports: Reviewed and negative PD PAST MEDICAL HISTORY - Past Medical History Cardiovascular: Hypertension, Arrhythmia Respiratory: Other, Asthma Neuro: Seizure disorder, CVA Endocrine/Autoimmune: None GI: Other COMPUTERIZED MILL RECORDER: None : None Psych: None Musculoskeletal: Osteoarthritis Derm: Other - Past Surgical History Past Surgical History: Yes General: Cholecystectomy Ortho: Spine surgery /COMPUTERIZED MILL RECORDER: Hysterectomy HEENT: Tonsil/Adenoidectomy - Present Medications Home Medications: Ambulatory Orders Medication Instructions Recorded Confirmed Multivitamin [Multi-Day Vitamins] 1 each PO DAILY 10/22/13 01/02/22 Topiramate [Topamax] 200 mg PO DAILY 10/22/13 01/02/22 Potassium Chloride [Klor-Con M10] 10 meq PO DAILYWM 11/30/15 01/02/22 Duloxetine HCl [Cymbalta] 60 mg PO DAILY 08/07/18 01/02/22 Carvedilol 6.25 mg PO BID 05/17/19 01/02/22 Montelukast [Singulair] 10 mg PO QPM 05/17/19 01/02/22 Albuterol Sulfate [Proair Hfa 1 - 2 puffs INH Q4H PRN 05/18/19 01/02/22 Inhaler] Topiramate [Topamax] 150 mg PO QPM 05/18/19 01/02/22 Carvedilol [Coreg] 6.25 mg PO DAILY 01/02/22 01/02/22 Ciprofloxacin HCl [Cipro] 500 mg PO BID #20 tablet 01/02/22 Pantoprazole [Protonix] 40 mg PO DAILY 01/02/22 01/02/22 - Allergies Allergies/Adverse Reactions: Allergies Allergy/AdvReac Type Severity Reaction Status Date / Time Penicillins Allergy Severe Respiratory Verified 05/17/19 23:13 amitriptyline [From Elavil] Allergy Unknown Verified 05/17/19 23:13 aspirin Allergy resp Verified 05/17/19 23:13 diphenhydramine HCl * Allergy Hives Verified 05/17/19 23:13 [From Benadryl] divalproex sodium Allergy Unknown Verified 05/17/19 23:13 iodine Allergy resp Verified 05/17/19 23:13 micafungin sodium * Allergy Anaphylaxis Verified 05/17/19 23:13 [From Mycamine] oxytetracycline Allergy resp Verified 05/17/19 23:13 [From Terramycin] oxytetracycline HCl * Allergy resp Verified 05/17/19 23:13 [From Terramycin] prednisone Allergy Unknown Verified 05/17/19 23:13 valproate sodium * AdvReac Nausea Verified 05/17/19 23:13 [From Depakene] valproic acid [From Depakene] AdvReac Nausea Verified 05/17/19 23:13 - Social History Does the pt smoke?: No Smoking Status: Never smoker Does the pt drink ETOH?: Yes Does the pt have substance abuse?: No - Immunizations Immunizations are current?: Yes - POLST Patient has POLST: No POLST Status: Full Code PD ED PE NORMAL - Vitals Vital signs reviewed: Yes - General General: Alert and oriented X 3, No acute distress, Well developed/nourished, Other (The patient is mildly disheveled and smells somewhat of urine.) - HEENT HEENT: Atraumatic, PERRL, EOMI, Moist mucous membranes - Neck Neck: Supple, no meningeal sign - Cardiac Cardiac: RRR, No murmur, Strong equal pulses - Respiratory Respiratory: No respiratory distress, Clear bilaterally - Abdomen Abdomen: Soft, Non tender, Non distended - Derm Derm: Normal color, Warm and dry, Other (Some maceration of skin over the right arm and flank.) - Extremities Extremities: No deformity, Other (Nonpitting lymphedema bilateral lower extremities.) - Neuro Neuro: Alert and oriented X 3, cigar brander 2-12 intact, Normal speech, Other (No focal deficits.) - Psych Psych: Normal mood, Normal affect Results - Vitals Vitals: Vital Signs - 24 hr 01/02/22 01/02/22 01/02/22 11:21 14:57 16:17 Temperature 36.5 C Heart Rate 83 86 86 Respiratory 18 16 16 Rate Blood Pressure 133/73 H 163/87 H 163/83 H O2 Saturation 96 96 99 Oxygen O2 Source Room air - Labs Labs: Laboratory Tests 01/02/22 01/02/22 01/02/22 12:32 12:32 12:32 WBC 13.0 H RBC 4.05 L Hgb 11.8 L Hct 37.7 MCV 93.1 MCH 29.1 MCHC 31.3 L RDW 16.2 H Plt Count 311 MPV 10.3 Neut # (Auto) 11.0 H Lymph # (Auto) 1.0 L [place] # (Auto) 1.0 Eos # (Auto) 0.0 Baso # (Auto) 0.0 Absolute Nucleated RBC 0.00 Nucleated RBC % 0.0 Sodium 139 Potassium 4.3 Chloride 109 Carbon Dioxide 21 Anion Gap 9.0 BUN 32 H Creatinine 1.3 H Estimated GFR (MDRD) 40 L Glucose 123 H Calcium 9.0 Total Bilirubin 0.5 AST 21 ALT 13 Alkaline Phosphatase 79 Total Protein 6.3 L Albumin 3.2 Globulin 3.1 Albumin/Globulin Ratio 1.0 Lipase 26 TSH 0.70 Urine Color Urine Clarity Urine pH Ur Specific [place] Urine Protein Urine Glucose (UA) Urine Ketones Urine Occult Blood Urine Nitrite Urine Bilirubin Urine Urobilinogen Ur Leukocyte Esterase Urine RBC Urine WBC Ur Squamous Epith Cells Urine Crystals Urine Bacteria Ur Microscopic Review Urine Culture Comments 01/02/22 14:50 WBC RBC Hgb Hct MCV MCH MCHC RDW Plt Count MPV Neut # (Auto) Lymph # (Auto) [place] # (Auto) Eos # (Auto) Baso # (Auto) Absolute Nucleated RBC Nucleated RBC % Sodium Potassium Chloride Carbon Dioxide Anion Gap BUN Creatinine Estimated GFR (MDRD) Glucose Calcium Total Bilirubin AST ALT Alkaline Phosphatase Total Protein Albumin Globulin Albumin/Globulin Ratio Lipase TSH Urine Color YELLOW Urine Clarity HAZY Urine pH 5.5 Ur Specific [place] >=1.030 H Urine Protein TRACE Urine Glucose (UA) NEGATIVE Urine Ketones NEGATIVE Urine Occult Blood MODERATE H Urine Nitrite POSITIVE H Urine Bilirubin NEGATIVE Urine Urobilinogen 0.2 (NORMAL) Ur Leukocyte Esterase LARGE H Urine RBC 11-25 H Urine WBC >25 H Ur Squamous Epith Cells FEW Squamous Urine Crystals 3-5 Calcium Oxalate Urine Bacteria Moderate H Ur Microscopic Review INDICATED Urine Culture Comments INDICATED PD MEDICAL DECISION MAKING - ED course Complexity details: reviewed old records, reviewed results, re-evaluated patient, considered differential, d/w patient ED course: The patient was worked up with laboratory studies, which did show some indication of volume contraction, but were otherwise unremarkable. Urinalysis showed a urinary tract infection. Patient was given a total of 3 L of IV fluid in order to produce a urine. Social work was consulted at the family's request. The patient is currently her own guardian and does not want to move to an assisted living facility. She would prefer to stay home with her son and . Son has been do note that the patient has actually been in decline functionally for the last 5 years, over that time, has stopped cooking, then stop showering, and now, hardly gets herself out of bed. They are willing to keep her at home but would like some extra support. maintenance worker has been consulted and has arranged for a bedside commode, and APS visit to assist the family, and a home health consultation. She has also reached out to the patient's primary care office, who is stated that they are happy to see the patient, but that she has no showed for 4 appointments in a row. The family has been given resources for assistance with these sorts of things, as well as for lift assist. The patient has been given a prescription for antibiotics for at home for her urinary tract infection. She has been able to actually ambulate in the emergency department with her walker for 6 steps at a time. We have discussed home management of the symptoms, the need for hydration, and the usual indications for return. Departure - Departure Disposition: Home, Self Care Clinical Impression: Dehydration, Physical deconditioning Urinary tract infection Qualifiers: Urinary tract infection type: acute cystitis Hematuria presence: without hematuria Qualified Code(s): N30.00 - Acute cystitis without hematuria Condition: Stable Instructions: ED Dehydration, ED UTI Cystitis Female, ED Fall Dizziness Weakn Balance Prescriptions: Ciprofloxacin HCl [Cipro] 500 mg PO BID #20 tablet Comments: Your labs overall do not show any concerning abnormalities. Your urine was positive for infection, and you have been started on treatment for this. You have also been given 3 liters of IV fluid to treat dehydration. It is important that you follow-up with your doctors office to address further concerns. Please avail yourself of the resources given by the outreach and education social worker today, to help make life at home a little easier for you and your family. Discharge Date/Time: 01/02/22 17:55
--- NOTE | 2022-01-02 19:47 | ED Physician Documentation ---
ED Addendum - Addendum Addendum: 01/02/22 19:46 Patient had received a prescription for ciprofloxacin from my colleague Dr. Rahman. The family preferred a prescription to be sent electronically to the [facility] in [place] which I have done.
== END 2022-01-02 17:55 | disposition home or self-care (01) ==
LOC: EDUNIT# → ED 11:16
DX: N30.00 Acute cystitis without hematuria (principal); E86.0 Dehydration; Z72.3 Lack of physical exercise; I10 Essential (primary) hypertension; I89.0 Lymphedema, not elsewhere classified
CPT/HCPCS: 36415; 80053; 81001; 81003; 83690; 84443; 85025; 87086; 87181; 96361; 96365; 99283

== ENCOUNTER 2022-07-26 14:04 | Outpatient (CLI) | payer MEDICAID | END 2022-07-26 14:05 | disposition EMS.NT | LOC: EMS 14:04 | DX: R53.1 Weakness (principal) ==

== ENCOUNTER 2022-08-28 09:01 | Outpatient (CLI) | payer MEDICARE, MEDICAID | END 2022-08-28 09:02 | disposition left against medical advice (07) | LOC: EMS 09:01 | DX: Z03.89 Encounter for observation for other suspected diseases and conditions ruled out (principal); Z79.02 Long term (current) use of antithrombotics/antiplatelets ==

== ENCOUNTER 2022-09-05 15:28 | Emergency (ER) | payer MEDICARE, MEDICAID ==
[2022-09-05] MEDS ORDERED: IPRATROPIUM/ALBUTEROL 3 ML NEB INH STA (16:01)
--- NOTE | 2022-09-05 16:02 | ED Physician Documentation ---
History of Present Illness - Stated complaint Stated Complaint: WEAKNESS - Chief complaint Chief Complaint: General - History obtained from History obtained from: Patient, EMS - Additonal information Additional information: This is a 72-year-old female with a past medical history of a prior CVA, seizure disorder, Hypertension, asthma, osteoarthritis who presents from home via EMS after multiple falls at home and patient's not being able to care for her anymore. She states that she has been increasingly weak over the last week or so and is no longer able to walk with her walker as she used to. She also notes falling several times last week and bruising in her legs. She is not sure why she fell Other than she notes generalized weakness. She did not have any prodromal symptoms such as dizziness, chest pain or difficulty breathing. She did not hit her head when she fell and notes only some bruising on her legs but denies any focal hip or pelvis pain, no back pain, no neck pain. She did not seek care When she fell. She has not had a fever or chills, has not had chest pain or difficulty breathing, no abdominal pain, no nausea vomiting or diarrhea.She denies any focal neuro changes, no confusion, no facial droop, no focal weakness but generally feels weak.She has incontinence at baseline and is unsure if she has any change in her urine output. Her called and states that she cannot come home because he is no longer able to care for her at this time. Review of Systems Ten Systems: 10 systems reviewed and negative (Except as noted in HPI) PD PAST MEDICAL HISTORY - Past Medical History Past Medical History: Yes Cardiovascular: Hypertension, Arrhythmia Respiratory: Other, Asthma Neuro: Seizure disorder, CVA Endocrine/Autoimmune: None GI: Other TIME CHECKER: None : None Psych: None Musculoskeletal: Osteoarthritis Derm: Other - Past Surgical History Past Surgical History: Yes General: Cholecystectomy Ortho: Spine surgery /TIME CHECKER: Hysterectomy HEENT: Tonsil/Adenoidectomy - Present Medications Home Medications: Ambulatory Orders Medication Instructions Recorded Confirmed Multivitamin [Multi-Day Vitamins] 1 each PO DAILY 10/22/13 01/02/22 Topiramate [Topamax] 200 mg PO DAILY 10/22/13 01/02/22 Potassium Chloride [Klor-Con M10] 10 meq PO DAILYWM 11/30/15 01/02/22 Duloxetine HCl [Cymbalta] 60 mg PO DAILY 08/07/18 01/02/22 Carvedilol 6.25 mg PO BID 05/17/19 01/02/22 Montelukast [Singulair] 10 mg PO QPM 05/17/19 01/02/22 Albuterol Sulfate [Proair Hfa 1 - 2 puffs INH Q4H PRN 05/18/19 01/02/22 Inhaler] Topiramate [Topamax] 150 mg PO QPM 05/18/19 01/02/22 Carvedilol [Coreg] 6.25 mg PO DAILY 01/02/22 01/02/22 Ciprofloxacin HCl [Cipro] 500 mg PO BID #20 tablet 01/02/22 Pantoprazole [Protonix] 40 mg PO DAILY 01/02/22 01/02/22 Clotrimazole 1% Cream [Lotrimin 1% 1 gm TP BID #90 gm 09/05/22 Cream] levoFLOXacin [Levaquin] 750 mg PO DAILY 5 Days #15 tablet 09/05/22 - Allergies Allergies/Adverse Reactions: Allergies Allergy/AdvReac Type Severity Reaction Status Date / Time Penicillins Allergy Severe Respiratory Verified 05/17/19 23:13 amitriptyline [From Elavil] Allergy Unknown Verified 09/05/22 15:51 aspirin Allergy resp Verified 09/05/22 15:51 diphenhydramine HCl * Allergy Hives Verified 09/05/22 15:51 [From Benadryl] divalproex sodium Allergy Unknown Verified 09/05/22 15:51 iodine Allergy resp Verified 05/17/19 23:13 micafungin sodium * Allergy Anaphylaxis Verified 09/05/22 15:51 [From Mycamine] oxytetracycline Allergy resp Verified 09/05/22 15:51 [From Terramycin] oxytetracycline HCl * Allergy resp Verified 09/05/22 15:51 [From Terramycin] prednisone Allergy Unknown Verified 09/05/22 15:51 valproate sodium * AdvReac Nausea Verified 09/05/22 15:51 [From Depakene] valproic acid [From Depakene] AdvReac Nausea Verified 05/17/19 23:13 - Social History Does the pt smoke?: No Smoking Status: Never smoker Does the pt drink ETOH?: Yes Does the pt have substance abuse?: No - Immunizations Immunizations are current?: Yes - POLST Patient has POLST: No POLST Status: Full Code PD ED PE NORMAL - Vitals Vital signs reviewed: Yes - General General: Alert and oriented X 3, No acute distress, Well developed/nourished - HEENT HEENT: Atraumatic, Moist mucous membranes, Pharynx benign, Other (edentulous) - Neck Neck: Supple, no meningeal sign, No JVD - Cardiac Cardiac: RRR, No murmur, No gallop, No rub - Respiratory Respiratory: No respiratory distress, Clear bilaterally - Abdomen Abdomen: Normal bowel sounds, Soft, Non tender, Non distended - Back Back: No CVA TTP, No spinal TTP - Derm Derm: Normal color, Warm and dry, Other (Multiple bruises in various stages throughout both her legs upper and lower) - Extremities Extremities: No deformity, No tenderness to palpate, Normal ROM s pain - Neuro Neuro: Alert and oriented X 3, No motor deficit, No sensory deficit, Normal speech, Other (Generalized weakness, no focal weakness) Eye Opening: Spontaneous Motor: Obeys Commands Verbal: Oriented GCS Score: 15 - Psych Psych: Normal mood, Normal affect Results - Vitals Vitals: Vital Signs - 24 hr 09/05/22 09/05/22 09/05/22 15:35 16:15 20:59 Temperature 36.7 C Heart Rate 99 89 85 Respiratory 17 24 16 Rate Blood Pressure 105/69 162/73 H O2 Saturation 98 98 09/05/22 21:00 Temperature 36.8 C Heart Rate Respiratory Rate Blood Pressure O2 Saturation Oxygen O2 Source Room air - Labs Labs: Laboratory Tests 09/05/22 09/05/22 09/05/22 15:57 15:57 16:08 WBC 21.0 H RBC 4.97 Hgb 15.3 Hct 47.1 H MCV 94.8 MCH 30.8 MCHC 32.5 RDW 14.4 Plt Count 417 MPV 9.8 Neut # (Auto) Not Reportable Lymph # (Auto) Not Reportable Coal # (Auto) Not Reportable Eos # (Auto) Not Reportable Baso # (Auto) Not Reportable Absolute Nucleated RBC Not Reportable Total Counted 100 Band Neuts % (Manual) 1 Abnorm Lymph % (Manual) 0 Nucleated RBC % Not Reportable Neutrophils # (Manual) 18.3 H Lymphocytes # (Manual) 1.1 L Monocytes # (Manual) 1.5 H Eosinophils # (Manual) 0.2 Basophils # (Manual) 0.0 Differential Comment MANUAL DIFFERENTIAL Platelet Estimate NORMAL (130-450,000) Platelet Morphology NORMAL APPEARANCE RBC Morph Micro Appear NORMAL APPEARANCE PT 14.3 H INR 1.3 H Sodium 136 Potassium 3.7 Chloride 103 Carbon Dioxide 22 Anion Gap 11.0 BUN 25 H Creatinine 1.1 H Estimated GFR (MDRD) 49 L Glucose 130 H Lactic Acid Calcium 9.3 Total Bilirubin 0.8 AST 32 ALT 26 Alkaline Phosphatase 102 Total Protein 7.0 Albumin 3.1 L Globulin 3.9 Albumin/Globulin Ratio 0.8 L Lipase 24 Urine Color Urine Clarity Urine pH Ur Specific [place] Urine Protein Urine Glucose (UA) Urine Ketones Urine Occult Blood Urine Nitrite Urine Bilirubin Urine Urobilinogen Ur Leukocyte Esterase Urine RBC Urine WBC Ur Squamous Epith Cells Urine Bacteria Ur Microscopic Review Urine Culture Comments Nasal Adenovirus (PCR) Nasal B. parapertussis DNA (PCR) Nasal Coronavir 229E PCR Nasal Coronavir HKU1 PCR Nasal Coronavir NL63 PCR Nasal Coronavir OC43 PCR Nasal Enterovir/Rhinovir PCR Nasal Influenza B PCR Nasal Influenza A PCR Nasal Parainfluen 1 PCR Nasal Parainfluen 2 PCR Nasal Parainfluen 3 PCR Nasal Parainfluen 4 PCR Nasal RSV (PCR) Nasal B.pertussis DNA PCR Nasal C.pneumoniae (PCR) Terrence Human Metapneumo PCR Nasal M.pneumoniae (PCR) Nasal SARS-CoV-2 (PCR) 09/05/22 09/05/22 09/05/22 16:56 17:01 17:12 WBC RBC Hgb Hct MCV MCH MCHC RDW Plt Count MPV Neut # (Auto) Lymph # (Auto) Coal # (Auto) Eos # (Auto) Baso # (Auto) Absolute Nucleated RBC Total Counted Band Neuts % (Manual) Abnorm Lymph % (Manual) Nucleated RBC % Neutrophils # (Manual) Lymphocytes # (Manual) Monocytes # (Manual) Eosinophils # (Manual) Basophils # (Manual) Differential Comment Platelet Estimate Platelet Morphology RBC Morph Micro Appear PT INR Sodium Potassium Chloride Carbon Dioxide Anion Gap BUN Creatinine Estimated GFR (MDRD) Glucose Lactic Acid 2.0 Calcium Total Bilirubin AST ALT Alkaline Phosphatase Total Protein Albumin Globulin Albumin/Globulin Ratio Lipase Urine Color DARK YELLOW Urine Clarity CLOUDY Urine pH 5.5 Ur Specific [place] 1.025 Urine Protein TRACE Urine Glucose (UA) NEGATIVE Urine Ketones NEGATIVE Urine Occult Blood MODERATE H Urine Nitrite POSITIVE H Urine Bilirubin SMALL H Urine Urobilinogen 0.2 (NORMAL) Ur Leukocyte Esterase MODERATE H Urine RBC TNTC H Urine WBC >25 H Ur Squamous Epith Cells MANY Squamous H Urine Bacteria Many H Ur Microscopic Review INDICATED Urine Culture Comments NOT INDICATED Nasal Adenovirus (PCR) NOT DETECTED Nasal B. parapertussis DNA (PCR) NOT DETECTED Nasal Coronavir 229E PCR NOT DETECTED Nasal Coronavir HKU1 PCR NOT DETECTED Nasal Coronavir NL63 PCR NOT DETECTED Nasal Coronavir OC43 PCR NOT DETECTED Nasal Enterovir/Rhinovir PCR NOT DETECTED Nasal Influenza B PCR NOT DETECTED Nasal Influenza A PCR NOT DETECTED Nasal Parainfluen 1 PCR NOT DETECTED Nasal Parainfluen 2 PCR NOT DETECTED Nasal Parainfluen 3 PCR NOT DETECTED Nasal Parainfluen 4 PCR NOT DETECTED Nasal RSV (PCR) NOT DETECTED Nasal B.pertussis DNA PCR NOT DETECTED Nasal C.pneumoniae (PCR) NOT DETECTED Terrence Human Metapneumo PCR NOT DETECTED Nasal M.pneumoniae (PCR) NOT DETECTED Nasal SARS-CoV-2 (PCR) NOT DETECTED PD MEDICAL DECISION MAKING - ED course Complexity details: reviewed results, re-evaluated patient, considered differential, d/w patient, d/w family ED course: This is a 72-year-old female who presented with generalized weakness over the course last several days with multiple falls. Patient is stable. Physical exam with initially mild tachycardia which resolved, she is afebrile and hemodynamically stable. Routine a sepsis work-up due to her tachycardia and this showed a white blood cell count of 20,000 but otherwise was generally stable. Her lactate was normal at 2. Her urinalysis however was suspicious for infection. Given patient's history of penicillin allergy, she received a dose of Levaquin here for UTI as well as a liter of IV fluid. She has been stable however we did consider admission to the hospital service given her symptomatic UTI with weakness and leukocytosis however it was felt by the hospitalist that she could likely discharge home. I spoke with her who felt like that he could no longer care for the patient and she is too weak for him to manage and it does appear that she has fallen multiple times at home recently and has quite severe diaper dermatitis in her vaginal area and was in urine soaked clothing and diaper when she arrives. There is concern that is not able to manage at home therefore we will monitor the patient in the ER overnight until social work can evaluate the patient and family to determine if she would qualify for placement or home health services. Patient signed out to Dr. Rahman at the conclusion of my shift. Departure - Departure Clinical Impression: Intertrigo Acute cystitis Qualifiers: Hematuria presence: without hematuria Qualified Code(s): N30.00 - Acute cystitis without hematuria Condition: Good Instructions: ED UTI Cystitis Female Prescriptions: levoFLOXacin [Levaquin] 750 mg PO DAILY 5 Days #15 tablet Clotrimazole 1% Cream [Lotrimin 1% Cream] 1 gm TP BID #90 gm Comments: You presented with weakness and recurrent falls at home. On exam here, you are found to have a urinary tract infection. We gave you an initial dose of antibiotics here as well as IV fluids with some improvement in your symptoms. We did discuss possibly keeping you in the hospital for ongoing treatment however as her symptoms are improving and you are stable for discharge home with oral medications. You do have some evidence of skin irritation in the groin area likely due to incontinence. It is important that you keep this area clean with gentle soap and water but otherwise keep dry and have your attendance changed whenever they become wet. I will give you some ointment to put on this irritation as well.
[2022-09-05 16:04] LABS: BASOPHILS % (AUTO) 0.2 %; EOSINOPHILS % (AUTO) 0.2 %; HCT - HEMATOCRIT 47.1 % (37.0-47.0); HGB - HEMOGLOBIN 15.3 g/dL (12.0-16.0); LYMPHOCYTES % (AUTO) 3.7 %; MEAN CORPUSCULAR HEMOGLOBIN 30.8 pg (27.0-31.0); MEAN CORPUSCULAR HGB CONC 32.5 g/dL (32.0-36.0); MEAN CORPUSCULAR VOLUME 94.8 fL (81.0-99.0); MEAN PLATELET VOLUME 9.8 fL (7.9-10.8); MONOCYTES % (AUTO) 7.5 %; NEUTROPHILS % (AUTO) 87.4 %; PLT - PLATELET COUNT 417 10^3/uL (130-450); RED BLOOD COUNT 4.97 10^6/uL (4.20-5.40); RED CELL DISTRIBUTION WIDTH 14.4 % (12.0-15.0)
[2022-09-05 16:07] LABS: ABNORMAL LYMPHS % (MANUAL) 0 %
[2022-09-05 16:14] LABS: ALBUMIN 3.1 g/dL (3.2-5.5); ALBUMIN/GLOBULIN RATIO 0.8 (1.0-2.2); BILIRUBIN,TOTAL 0.8 mg/dL (0.2-1.0); CALCIUM 9.3 mg/dL (8.5-10.3); CREATININE 1.1 mg/dL (0.4-1.0); POTASSIUM 3.7 mmol/L (3.5-5.0)
[2022-09-05 16:21] LABS: INR 1.3 (0.8-1.2); PT - PROTHROMBIN TIME 14.3 secs (9.9-12.6)
[2022-09-05 16:33] LABS: BAND NEUTROPHILS % (MANUAL) 1 %; DIFFERENTIAL COMMENT MANUAL DIFFERENTIAL; EOSINOPHILS # (MANUAL) 0.2 10^3/uL (0-0.7); LYMPHOCYTES # (MANUAL) 1.1 10^3/uL (1.5-3.5); LYMPHOCYTES % (MANUAL) 5 %; MONOCYTES # (MANUAL) 1.5 10^3/uL (0.0-1.0); NEUTROPHILS # (MANUAL) 18.3 10^3/uL (1.5-6.6); PLATELET ESTIMATE, MANUAL NORMAL (130-450,000) (NORMAL); PLATELET MORPHOLOGY NORMAL APPEARANCE (NORMAL); RBC MORPHOLOGY (MULTIPLE) NORMAL APPEARANCE (NORMAL)
[2022-09-05] MEDS ORDERED: levoFLOXacin 750 MG/150 ML 750 MG/150 ML BAG IV STA (17:00)
[2022-09-05 17:07] LABS: GLUCOSE, URINE (UA) NEGATIVE (NEGATIVE); KETONES,URINE (UA) NEGATIVE (NEGATIVE); LEUKOCYTE ESTERASE, URINE MODERATE (NEGATIVE); NITRITE,URINE POSITIVE (NEGATIVE); OCCULT BLOOD,URINE MODERATE (NEGATIVE); PH,URINE 5.5 PH (5.0-7.5); PROTEIN,URINE TRACE mg/dL (NEGATIVE); UROBILINOGEN,URINE 0.2 (NORMAL) E.U./dL (NORMAL)
[2022-09-05 17:22] LABS: BILIRUBIN,URINE SMALL (NEGATIVE); CLARITY,URINE CLOUDY (CLEAR); ICTOTEST,URINE POSITIVE
[2022-09-05 17:23] LABS: BACTERIA,URINE Many /HPF (None Seen); RBC,URINE TNTC /HPF (0-5); SQUAMOUS EPITHELIAL CELL,UR MANY Squamous (<= Few); WBC,URINE >25 /HPF (0-5)
[2022-09-05 19:03] LABS: B. PARAPERTUSSIS- RESP PCR PAN NOT DETECTED; B. PERTUSSIS- RESP PCR PANEL NOT DETECTED; C. PNEUMONIAE- RESP PCR PANEL NOT DETECTED; CORONAVIRUS 229E-RESP PCR NOT DETECTED; CORONAVIRUS HKU1-RESP PCR NOT DETECTED; CORONAVIRUS NL63-RESP PCR NOT DETECTED; CORONAVIRUS OC43-RESP PCR NOT DETECTED; HUMAN METAPNEUMOVIRUS NOT DETECTED; INFLUENZA A- RESP PCR PANEL NOT DETECTED; INFLUENZA B - RESP PCR PANEL NOT DETECTED; M. PNEUMONIAE- RESP PCR PANEL NOT DETECTED; PARAINFLUENZA VIRUS 1 NOT DETECTED; PARAINFLUENZA VIRUS 2 NOT DETECTED; PARAINFLUENZA VIRUS 3 NOT DETECTED; PARAINFLUENZA VIRUS 4 NOT DETECTED; RHINOVIRUS/ENTEROVIRUS NOT DETECTED; RSV- RESP PCR PANEL NOT DETECTED; SARS-CoV-2 -RESP PCR PANEL NOT DETECTED
[2022-09-05] MEDS ORDERED: SODIUM CHLORIDE 0.9% 1,000 ML IV STA (19:33)
[2022-09-05] MEDS ORDERED: ACETAMINOPHEN 325 MG TABLET PO STA (20:47)
[2022-09-06] MEDS ORDERED: ACETAMINOPHEN 325 MG TABLET PO STA (11:10)
[2022-09-06 15:16] LABS: BASOPHILS % (AUTO) 0.1 %; EOSINOPHILS # (AUTO) 0.1 10^3/uL (0.0-0.7); EOSINOPHILS % (AUTO) 0.4 %; HGB - HEMOGLOBIN 13.8 g/dL (12.0-16.0); LYMPHOCYTES # (AUTO) 1.5 10^3/uL (1.5-3.5); LYMPHOCYTES % (AUTO) 11.3 %; MEAN CORPUSCULAR HEMOGLOBIN 30.5 pg (27.0-31.0); MEAN CORPUSCULAR HGB CONC 32.1 g/dL (32.0-36.0); MEAN CORPUSCULAR VOLUME 94.9 fL (81.0-99.0); MEAN PLATELET VOLUME 9.6 fL (7.9-10.8); MONOCYTES # (AUTO) 1.5 10^3/uL (0.0-1.0); NEUTROPHILS # (AUTO) 10.2 10^3/uL (1.5-6.6); NEUTROPHILS % (AUTO) 76.4 %; PLT - PLATELET COUNT 384 10^3/uL (130-450); RED BLOOD COUNT 4.53 10^6/uL (4.20-5.40); RED CELL DISTRIBUTION WIDTH 14.3 % (12.0-15.0); WHITE BLOOD COUNT 13.4 x10^3/uL (4.8-10.8)
[2022-09-06 15:25] LABS: CALCIUM 8.8 mg/dL (8.5-10.3); CREATININE 1.1 mg/dL (0.4-1.0); POTASSIUM 3.7 mmol/L (3.5-5.0)
[2022-09-06] MEDS ORDERED: ZINC OXIDE 20% OINT 30 GM TUBE TOP STA (16:07)
[2022-09-06] MEDS ORDERED: levoFLOXacin 250 MG TABLET PO STA (16:07)
[2022-09-06 16:57] VITALS: BP 114/74
[2022-09-06] MEDS ORDERED: levoFLOXacin 750 MG/150 ML 750 MG/150 ML BAG IV SCH (18:00)
== END 2022-09-06 16:57 | disposition home or self-care (01) ==
LOC: EDUNIT# → ED 15:28
DX: L30.4 Erythema intertrigo (principal); N30.00 Acute cystitis without hematuria; Z91.81 History of falling; J45.909 Unspecified asthma, uncomplicated; Z20.822 Contact with and (suspected) exposure to COVID-19
CPT/HCPCS: 36415; 80048; 80053; 81001; 83605; 83690; 85025; 85610; 87040; 87633; 94640; 96365; 96366; 99284; A9270; 81003; 87086

== ENCOUNTER → 2022-09-05 | Outpatient (CLI) | payer MEDICARE, MEDICAID | END | disposition critical access hospital (66) | LOC: EMS 14:58 | DX: R53.1 Weakness (principal); R42 Dizziness and giddiness; R11.0 Nausea | CPT/HCPCS: A0425; A0429 ==

== ENCOUNTER 2022-09-12 02:24 | Outpatient (CLI) | payer MEDICARE, MEDICAID | END 2022-09-12 02:25 | disposition critical access hospital (66) | LOC: EMS 02:24 | DX: R10.817 Generalized abdominal tenderness (principal); R63.8 Other symptoms and signs concerning food and fluid intake; R62.7 Adult failure to thrive; M79.605 Pain in left leg; M79.604 Pain in right leg; Z91.81 History of falling | CPT/HCPCS: A0425; A0428 ==

== ENCOUNTER 2022-09-12 02:50 | Emergency (ER) | payer MEDICARE, MEDICAID ==
--- NOTE | 2022-09-12 02:54 | ED Physician Documentation ---
PD HPI ABD PAIN - Stated complaint Stated Complaint: R LQ PX - History obtained from History obtained from: Patient, EMS - History of Present Illness Timing - onset: How many weeks ago (1) Timing - details: Abrupt onset, Intermittant Pain level max: 8 (right flank) Pain level now: 0 Quality: Pain Location: Other (right abdomen and right flank) Improved by: Other (no ameliorating factors) Worsened by: Other (no exacerbating factors) Associated symptoms: Nausea. No: Fever, Vomiting, Diarrhea, Constipation, Dysuria, Hematuria Similar symptoms before: Has not had sx before Recently seen: Emergency Dept - Additional information Additional information: BIBA for episodic right abdominal and right flank pain x 1 week. She has not appreciated any inciting, exacerbating, or ameliorating factors. She denies h/o similar pain. Patient was evaluated 09/05 in this ED for generalized weakness, discharged 09/06. PMHx includes CVA, seizures, HTN, osteoarthritis, and asthma. Review of Systems Constitutional: reports: Reviewed and negative Cardiac: reports: Reviewed and negative Respiratory: reports: Reviewed and negative GI: reports: Nausea. 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25 mg PO BID 05/17/19 01/02/22 Montelukast [Singulair] 10 mg PO QPM 05/17/19 01/02/22 Albuterol Sulfate [Proair Hfa 1 - 2 puffs INH Q4H PRN 05/18/19 01/02/22 Inhaler] Topiramate [Topamax] 150 mg PO QPM 05/18/19 01/02/22 Carvedilol [Coreg] 6.25 mg PO DAILY 01/02/22 01/02/22 Ciprofloxacin HCl [Cipro] 500 mg PO BID #20 tablet 01/02/22 Pantoprazole [Protonix] 40 mg PO DAILY 01/02/22 01/02/22 Clotrimazole 1% Cream [Lotrimin 1% 1 gm TP BID #90 gm 09/05/22 Cream] Zinc Oxide 20% Oint [Zinc Oxide] 1 applic TOP BID #30 gm 09/06/22 levoFLOXacin [Levofloxacin] 750 mg PO DAILY #3 tablet 09/06/22 Ondansetron Odt [Zofran] 4 mg TL Q6H PRN #14 tablet 09/12/22 Tamsulosin [Flomax] 0.4 mg PO DAILY #14 cap 09/12/22 oxyCODONE [Roxicodone] 5 - 10 mg PO Q6H PRN #20 tablet 09/12/22 - Allergies Allergies/Adverse Reactions: Allergies Allergy/AdvReac Type Severity Reaction Status Date / Time Penicillins Allergy Severe Respiratory Verified 05/17/19 23:13 amitriptyline [From Elavil] Allergy Unknown Verified 09/05/22 15:51 aspirin Allergy resp Verified 09/05/22 15:51 diphenhydramine HCl * Allergy Hives Verified 09/05/22 15:51 [From Benadryl] divalproex sodium Allergy Unknown Verified 09/05/22 15:51 egg Allergy Unknown Verified 09/06/22 09:13 iodine Allergy resp Verified 05/17/19 23:13 micafungin sodium * Allergy Anaphylaxis Verified 09/05/22 15:51 [From Mycamine] oxytetracycline Allergy resp Verified 09/05/22 15:51 [From Terramycin] oxytetracycline HCl * Allergy resp Verified 09/05/22 15:51 [From Terramycin] prednisone Allergy Unknown Verified 09/05/22 15:51 valproate sodium * AdvReac Nausea Verified 09/05/22 15:51 [From Depakene] valproic acid [From Depakene] AdvReac Nausea Verified 05/17/19 23:13 - Social History Does the pt smoke?: No Smoking Status: Never smoker Does the pt drink ETOH?: Yes Does the pt have substance abuse?: No - Immunizations Immunizations are current?: Yes - POLST Patient has POLST: No POLST Status: Full Code PD ED PE NORMAL - Vitals Vital signs reviewed: Yes - General General: Alert and oriented X 3, No acute distress, Other (morbidly obese. NAD although she has two episodes during ED stay where she suddenly calls out in pain "ow..ow..OW..OW", for about 30-45 seconds per episode, getting louder (indicating increasing intensity), then quieter and then stops and reports pain resolve for the time being) - Cardiac Cardiac: RRR, No murmur - Respiratory Respiratory: No respiratory distress, Clear bilaterally - Abdomen Abdomen: Normal bowel sounds, Soft, Non tender, Non distended - Back Back: No CVA TTP - Derm Derm: Normal color, Warm and dry, No rash Results - Vitals Vitals: Vital Signs - 24 hr 09/12/22 10:20 Heart Rate 87 Blood Pressure 141/79 H O2 Saturation 100 Oxygen O2 Source Room air - Labs Labs: Laboratory Tests 09/12/22 09/12/22 03:04 03:04 WBC 13.2 H RBC 4.46 Hgb 13.4 Hct 42.8 MCV 96.0 MCH 30.0 MCHC 31.3 L RDW 15.0 Plt Count 399 MPV 9.4 Neut # (Auto) 10.4 H Lymph # (Auto) 1.3 L [place] # (Auto) 1.4 H Eos # (Auto) 0.0 Baso # (Auto) 0.0 Absolute Nucleated RBC 0.00 Nucleated RBC % 0.0 Sodium 136 Potassium 4.1 Chloride 106 Carbon Dioxide 22 Anion Gap 8.0 BUN 17 Creatinine 0.9 Estimated GFR (MDRD) 62 L Glucose 151 H Calcium 9.3 Total Bilirubin 0.8 AST 25 ALT 20 Alkaline Phosphatase 87 Total Protein 7.1 Albumin 3.1 L Globulin 4.0 Albumin/Globulin Ratio 0.8 L Lipase 28 - Rads (name of study) CT A/P Radiology: Prelim report reviewed, See rad report PD MEDICAL DECISION MAKING - ED course Complexity details: reviewed results, re-evaluated patient, considered differential, d/w patient ED course: large left proximal -ureteral calculus noted (1.3 cm), this despite her c/o right-sided pain. laterality aside, this finding would explain her waxing and waning episodes of flank pain that come and go without inciting, ameliorating, exacerbating factors. Results d/w patient. I advised her that due to the large size of the stone, she will likely need to have it removed by a urologist and thus she needs to contact her insurance provider or PCP to inquire about the referral process. She is given flomax and oxycodone, with rx for same as well as zofran. Return precautions discussed. I am prescribing a short course of short-acting opioid medication for this patient. I have reviewed the patient's FLAKER TENDER and no concerning findings were noted. I have discussed with the patient that opioids are for short term therapy only and will not be refilled from the ED. Departure - Departure Disposition: 01 Home, Self Care Clinical Impression: Renal colic on left side Condition: Good Instructions: ED Stone Renal W Colic Prescriptions: Tamsulosin [Flomax] 0.4 mg PO DAILY #14 cap oxyCODONE [Roxicodone] 5 - 10 mg PO Q6H PRN #20 tablet PRN Reason: Pain Ondansetron Odt [Zofran] 4 mg TL Q6H PRN #14 tablet PRN Reason: Nausea / Vomiting Comments: The CT scan shows a large (1.3 centimeter) kidney stone that is obstructing the left ureter (the tube that drains urine from the kidney to the bladder). This causes waxing and waning / episodic pain on the affected side. I am providing prescriptions for pain medication (oxycodone), ondansetron (anti- nausea medication), as well as tamsulosin (Flomax; this medication can increase the likelihood of passing the stone and decrease the time to stone passage). As we discussed, your kidney stone is very large and will most likely need a procedure to remove it. You should contact your primary care provider to ask about the referral process to see a urologist. I highly recommend you pursue this follow up even if your symptoms subside. I am prescribing a short course of narcotic pain medication for you. These are potentially dangerous and addictive medications that should be used carefully. These medications may constipate you. Take an nwct-vau-lujaueo stool softener (docusate) twice daily with plenty of water while taking these medications. If you go 24 hours without a bowel movement, take [id number] miralax, per package instructions. Do not drink or drive while taking these medications. If you received narcotic or sedating medications while in the emergency department, do not drive for 24 hours. Store this medication in a safe, secure place and out of reach of children. It is a violation of federal law to give or sell this medication to another person or to use in a manner other than prescribed. The ED will not refill narcotic prescriptions, including prescriptions lost or stolen. To dispose of unwanted medications: 1. [facility] at [address] in [place] has a medication drop box. They accept prescription medications (in pill form) Saturday through Saturday 9:00 a.m. to 5:00 p.m. 2. The [facility] [employer] accepts prescription medications (in pill form only) for disposal year round. Call for more information. 3. Contact the [facility] for the next [facility] sponsored prescription drug collection event. , [phone], or [phone]; Discharge Date/Time: 09/12/22 10:42
[2022-09-12 03:14] LABS: BASOPHILS % (AUTO) 0.1 %; EOSINOPHILS % (AUTO) 0.3 %; HCT - HEMATOCRIT 42.8 % (37.0-47.0); HGB - HEMOGLOBIN 13.4 g/dL (12.0-16.0); LYMPHOCYTES # (AUTO) 1.3 10^3/uL (1.5-3.5); LYMPHOCYTES % (AUTO) 9.8 %; MEAN CORPUSCULAR HGB CONC 31.3 g/dL (32.0-36.0); MEAN PLATELET VOLUME 9.4 fL (7.9-10.8); MONOCYTES # (AUTO) 1.4 10^3/uL (0.0-1.0); MONOCYTES % (AUTO) 10.7 %; NEUTROPHILS # (AUTO) 10.4 10^3/uL (1.5-6.6); NEUTROPHILS % (AUTO) 78.3 %; PLT - PLATELET COUNT 399 10^3/uL (130-450); RED BLOOD COUNT 4.46 10^6/uL (4.20-5.40); WHITE BLOOD COUNT 13.2 x10^3/uL (4.8-10.8)
[2022-09-12 03:34] LABS: ALBUMIN 3.1 g/dL (3.2-5.5); ALBUMIN/GLOBULIN RATIO 0.8 (1.0-2.2); BILIRUBIN,TOTAL 0.8 mg/dL (0.2-1.0); CALCIUM 9.3 mg/dL (8.5-10.3); CREATININE 0.9 mg/dL (0.4-1.0); POTASSIUM 4.1 mmol/L (3.5-5.0); TOTAL PROTEIN 7.1 g/dL (6.7-8.2)
[2022-09-12] MEDS ORDERED: iohexoL-300 100 ML VIAL ONE (04:20)
[2022-09-12] MEDS ORDERED: KETOROLAC 15 MG/ML VIAL IVP STA (05:42)
[2022-09-12] MEDS ORDERED: MORPHINE 2 MG/ML CARPUJECT IVP STA (05:42)
[2022-09-12] MEDS ORDERED: TAMSULOSIN 0.4 MG CAPSULE PO STA (05:42)
[2022-09-12] MEDS ORDERED: oxyCODONE/ACET 5/325 Prepack 4 PO STA (06:03)
[2022-09-12] MEDS ORDERED: ONDANSETRON ODT 4 MG TABLET TL STA (06:09)
[2022-09-12] MEDS ORDERED: oxyCODONE 5 MG TABLET PO STA (06:09)
[2022-09-12 10:20] VITALS: BP 141/79
--- NOTE | 2022-09-12 10:47 | CT Report ---
PROCEDURE: ABDOMEN/PELVIS WO INDICATIONS: RLQ and right flank pain TECHNIQUE: Noncontrast 5 mm thick sections acquired from the diaphragms to the symphysis. 5 mm coronal and sagi ttal reformats were then performed. For radiation dose reduction, the following was used: automated exposure control, adjustment of mA and/or kV according to patient size. COMPARISON: X-ray Abdomen 1 view, 08/09/2021. FINDINGS: Image quality: Excellent. ABDOMEN: Lung bases: Lung bases are clear. Heart size is normal. There is left mastectomy. Solid organs: Liver and spleen are normal in size. Gallbladder is surgically absent. Pancreas is n ormal in contours. No adrenal nodules. There is moderate left renal atrophy. Mild left hydronephrosis is present. There is a 10 mm stone in the proximal left ureter demonstrating CT density 154 Hounsfield units. Small 1-3 mm punctate stones are seen in left kidney. Right kidney is normal in size, without hydronephrosis or nephrolithiasis. Peritoneum and bowel: Appendix is normal. Unenhanced bowel loops demonstrate normal wall thickness a nd caliber. No free fluid or air. Nodes and vessels: No retroperitoneal or mesenteric adenopathy by size criteria. Aorta and inferior vena cava are normal in caliber. Miscellaneous: No ventral hernias. PELVIS: Genitourinary: Bladder wall thickness is normal. Miscellaneous: No inguinal hernias or adenopathy. Bones: No suspicious bony lesions. No vertebral body compression fractures. Mild degenerative disc disease in lower thoracic spine and lumbar spine. Severe facet arthropathy in lumbar spine. IMPRESSION: 1. A cause for right lower quadrant pain and right flank pain is not identified. Normal appendix. No right renal stone or hydronephrosis. 2. A 10 mm obstructive stone in the proximal left ureter causing mild left hydronephrosis. There are additional 1-3 mm nonobstructive left renal calculi. There is moderate left renal atrophy suggesting chronic obstructive nephropathy. No significant discrepancy with the preliminary interpretation. Reviewed by: Anupama Puga MD on 09/12/2022 10:46 AM PST Approved by: Anupama Puga MD on 09/12/2022 10:46 AM PST Station ID: [id number]
== END 2022-09-12 10:42 | disposition home or self-care (01) ==
LOC: EDUNIT# → ED 02:50
DX: N23 Unspecified renal colic (principal)
CPT/HCPCS: 36415; 74176; 80053; 83690; 85025; 99284; A9270; Q0162

== ENCOUNTER 2022-09-22 12:08 | Outpatient (CLI) | payer MEDICARE, MEDICAID | END 2022-09-22 12:09 | disposition critical access hospital (66) | LOC: EMS 12:08 | DX: R07.9 Chest pain, unspecified (principal); Z74.01 Bed confinement status | CPT/HCPCS: A0425; A0429 ==

== ENCOUNTER 2022-09-22 12:38 | Emergency (ER) | payer MEDICARE, MEDICAID ==
[2022-09-22] MEDS ORDERED: MORPHINE 2 MG/ML CARPUJECT IVP STA (12:48)
[2022-09-22] MEDS ORDERED: ASPIRIN CHEW 81 MG TABLET PO STA (12:48)
--- NOTE | 2022-09-22 12:51 | ED Physician Documentation ---
PD HPI CHEST PAIN - Stated complaint Stated Complaint: Chest Pain - History obtained from History obtained from: Patient - Additional information Additional information: 72-year-old woman with no history of heart disease but recurrent TIAs. She is bedbound because of frequent falls and cared for by her . She presents today with 12 hours or so of sharp anterior nonradiating chest pain. She says she has had this before and it was "a chest infection" but when I ask if it was pneumonia she says no. She does admit to a cough. She denies fevers or chills. Pain does not get worse with deep breathing. Review of Systems Ten Systems: 10 systems reviewed and negative Constitutional: denies: Fever, Chills Nose: reports: Reviewed and negative Cardiac: reports: Chest pain / pressure, Reviewed and negative. denies: Palpitations Respiratory: denies: Dyspnea, Cough PD PAST MEDICAL HISTORY - Allergies Allergies/Adverse Reactions: Allergies Allergy/AdvReac Type Severity Reaction Status Date / Time aspirin Allergy Unknown Verified 09/22/22 12:50 Penicillins Allergy Unknown Verified 09/22/22 12:50 PD ED PE NORMAL - Vitals Vital signs reviewed: Yes - General General: Alert and oriented X 3, Other (Disheveled bedbound female laying in bed in no distress. She is covered in urine and stool and malodorous.) - Neck Neck: Supple, no meningeal sign, No bony TTP - Cardiac Cardiac: RRR, No murmur - Respiratory Respiratory: No respiratory distress, Clear bilaterally - Abdomen Abdomen: Normal bowel sounds, Soft, Non tender - Back Back: No CVA TTP, No spinal TTP - Derm Derm: Other (There is a large blister with a unstageable pressure ulcer underneath on the right heel. Her entire back is denuded and covered in stool.) - Extremities Extremities: No edema, No calf tenderness / cord - Neuro Neuro: Alert and oriented X 3, Normal speech Results - Vitals Vitals: Vital Signs - 24 hr 09/22/22 09/22/22 09/22/22 12:50 13:03 14:38 Temperature 36.5 C Heart Rate 86 84 78 Respiratory 20 20 24 Rate Blood Pressure 136/86 H 139/86 H 150/66 H O2 Saturation 100 100 100 09/22/22 15:47 Temperature Heart Rate 83 Respiratory 16 Rate Blood Pressure 132/71 H O2 Saturation 100 Oxygen O2 Source Room air - EKG (time done) 1241 Rate: Rate (enter#) (86) Rhythm: NSR Intervals: Other (lafb) QRS: Low voltage Ischemia: No: ST elevation c/w ischemia, ST depression - Labs Labs: Laboratory Tests 09/22/22 09/22/22 09/22/22 13:10 13:10 13:10 WBC 10.6 RBC 4.36 Hgb 13.3 Hct 42.3 MCV 97.0 MCH 30.5 MCHC 31.4 L RDW 14.4 Plt Count 424 MPV 9.6 Neut # (Auto) 8.4 H Lymph # (Auto) 1.2 L [place] # (Auto) 0.8 Eos # (Auto) 0.1 Baso # (Auto) 0.0 Absolute Nucleated RBC 0.00 Nucleated RBC % 0.0 Sodium 135 Potassium 3.7 Chloride 105 Carbon Dioxide 21 Anion Gap 9.0 BUN 19 Creatinine 0.8 Estimated GFR (MDRD) 71 L Glucose 121 H Calcium 9.0 Total Bilirubin 0.6 AST 17 ALT 13 Alkaline Phosphatase 95 Troponin I High Sens 4.6 Total Protein 6.5 L Albumin 3.0 L Globulin 3.5 Albumin/Globulin Ratio 0.9 L Lipase 27 - Rads (name of study) Single view chest x-ray demonstrates low lung volumes but no acute disease. Radiology: Final report received, EMP read indepedently PD Medical Decision Making - ED course ED course: 72-year-old woman with anterior chest pain of 12 hours duration. Will check chest x-ray, EKG, troponin. Prehospital EKG was reported as nonischemic. She is disheveled and I will asked the social organization professor to file an APS report. I did speak with the who is a trying to arrange for home health care. Departure - Departure Disposition: Home, Self Care Clinical Impression: Chest wall pain Condition: Good Record reviewed to determine appropriate education?: Yes Instructions: ED Strain Chest Wall Comments: No evidence of a serious cause of your chest pain, chest x-ray, EKG, and cardiac lab markers were normal. More concerning is that we found you to be quite disheveled today covered in stool and urine. I have asked the social organization professor to see you and we recommend a higher level of care with either home health and a bath aide or residential facility. Discharge Date/Time: 09/22/22 16:07
--- NOTE | 2022-09-22 13:03 | XRAY Report ---
PROCEDURE: Chest 1 View X-Ray INDICATIONS: Chest Pain TECHNIQUE: One view of the chest was acquired. COMPARISON: None. FINDINGS: Surgical changes and devices: None. Lungs and pleura: Low lung volumes. No dense consolidation or pleural effusion. Mediastinum: Heart size is at the upper limit of normal Bones and chest wall: Scattered degenerative changes IMPRESSION: No acute radiographic abnormality. Low lung volumes limit evaluation. Reviewed by: Maldonado Elam MD on 09/22/2022 12:02 PM [facility] Approved by: Maldonado Elam MD on 09/22/2022 12:02 PM [facility] Station ID: [id number]
[2022-09-22 13:29] LABS: BASOPHILS % (AUTO) 0.1 %; EOSINOPHILS # (AUTO) 0.1 10^3/uL (0.0-0.7); EOSINOPHILS % (AUTO) 0.7 %; HCT - HEMATOCRIT 42.3 % (37.0-47.0); HGB - HEMOGLOBIN 13.3 g/dL (12.0-16.0); LYMPHOCYTES # (AUTO) 1.2 10^3/uL (1.5-3.5); LYMPHOCYTES % (AUTO) 11.5 %; MEAN CORPUSCULAR HEMOGLOBIN 30.5 pg (27.0-31.0); MEAN CORPUSCULAR HGB CONC 31.4 g/dL (32.0-36.0); MEAN PLATELET VOLUME 9.6 fL (7.9-10.8); MONOCYTES # (AUTO) 0.8 10^3/uL (0.0-1.0); MONOCYTES % (AUTO) 7.6 %; NEUTROPHILS # (AUTO) 8.4 10^3/uL (1.5-6.6); NEUTROPHILS % (AUTO) 79.6 %; PLT - PLATELET COUNT 424 10^3/uL (130-450); RED BLOOD COUNT 4.36 10^6/uL (4.20-5.40); RED CELL DISTRIBUTION WIDTH 14.4 % (12.0-15.0); WHITE BLOOD COUNT 10.6 x10^3/uL (4.8-10.8)
[2022-09-22 13:47] LABS: ALBUMIN/GLOBULIN RATIO 0.9 (1.0-2.2); BILIRUBIN,TOTAL 0.6 mg/dL (0.2-1.0); CREATININE 0.8 mg/dL (0.4-1.0); POTASSIUM 3.7 mmol/L (3.5-5.0); TOTAL PROTEIN 6.5 g/dL (6.7-8.2)
[2022-09-22 15:48] VITALS: BP 132/71
== END 2022-09-22 16:07 | disposition home or self-care (01) ==
LOC: MERGE 12:38 → ED 12:38
DX: R07.89 Other chest pain (principal); Z74.2 Need for assistance at home and no other household member able to render care
CPT/HCPCS: 36415; 71045; 80053; 83690; 84484; 85025; 93005; 96374; 99284; A9270

== ENCOUNTER 2022-09-22 16:40 | Outpatient (CLI) | payer MEDICARE, MEDICAID | END 2022-09-22 16:41 | disposition home or self-care (01) | LOC: EMS 16:40 | PROVIDERS: ATTEND Emergency Medicine | DX: G82.50 Quadriplegia, unspecified (principal); Z74.01 Bed confinement status | CPT/HCPCS: A0425; A0428 ==

== ENCOUNTER 2022-10-06 08:51 | Outpatient (CLI) | payer MEDICARE, MEDICAID | END 2022-10-06 08:52 | disposition critical access hospital (66) | LOC: EMS 08:51 | DX: R62.7 Adult failure to thrive (principal); R30.0 Dysuria; Z74.2 Need for assistance at home and no other household member able to render care | CPT/HCPCS: A0425; A0429 ==

== ENCOUNTER 2022-10-06 09:14 | Emergency (ER) | payer MEDICARE, MEDICAID ==
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
[2022-10-06 09:55] LABS: BASOPHILS % (AUTO) 0.1 %; EOSINOPHILS # (AUTO) 0.1 10^3/uL (0.0-0.7); EOSINOPHILS % (AUTO) 0.5 %; HCT - HEMATOCRIT 42.8 % (37.0-47.0); HGB - HEMOGLOBIN 13.4 g/dL (12.0-16.0); LYMPHOCYTES # (AUTO) 1.1 10^3/uL (1.5-3.5); MEAN CORPUSCULAR HEMOGLOBIN 30.4 pg (27.0-31.0); MEAN CORPUSCULAR HGB CONC 31.3 g/dL (32.0-36.0); MEAN CORPUSCULAR VOLUME 97.1 fL (81.0-99.0); MEAN PLATELET VOLUME 9.9 fL (7.9-10.8); MONOCYTES % (AUTO) 9.3 %; NEUTROPHILS # (AUTO) 8.8 10^3/uL (1.5-6.6); NEUTROPHILS % (AUTO) 79.6 %; PLT - PLATELET COUNT 402 10^3/uL (130-450); RED BLOOD COUNT 4.41 10^6/uL (4.20-5.40); RED CELL DISTRIBUTION WIDTH 14.5 % (12.0-15.0)
[2022-10-06 10:10] LABS: ALBUMIN 3.4 g/dL (3.2-5.5); ALBUMIN/GLOBULIN RATIO 0.9 (1.0-2.2); BILIRUBIN,TOTAL 0.9 mg/dL (0.2-1.0); CALCIUM 9.2 mg/dL (8.5-10.3); CREATININE 0.9 mg/dL (0.4-1.0); MAGNESIUM 1.9 mg/dL (1.7-2.8); POTASSIUM 3.6 mmol/L (3.5-5.0); TOTAL PROTEIN 7.4 g/dL (6.7-8.2)
--- NOTE | 2022-10-06 10:24 | XRAY Report ---
PROCEDURE: Chest 1 View X-Ray INDICATIONS: chest pain TECHNIQUE: One view of the chest was acquired. COMPARISON: None. FINDINGS: Surgical changes and devices: None. Lungs and pleura: No pleural effusions or pneumothorax. Lungs are clear. Mediastinum: Mediastinal contours appear normal. Heart size is normal. Bones and chest wall: No suspicious bony lesions. Overlying soft tissues appear unremarkable. Dege nerative changes noted involving both shoulders IMPRESSION: No acute cardiopulmonary findings Reviewed by: Satish Murrell MD on 10/06/2022 9:22 AM [facility] Approved by: Satish Murrell MD on 10/06/2022 9:22 AM [facility] Station ID: [id number]
[2022-10-06] MEDS ORDERED: SODIUM CHLORIDE 0.9% 1,000 ML IV STA (10:37)
[2022-10-06] MEDS ORDERED: ceFAZolin 1 GM in SODIUM CHLORIDE 0.9% MINIBAG 100 ML IV STA (10:37)
[2022-10-06 10:46] LABS: GLUCOSE, URINE (UA) NEGATIVE (NEGATIVE); KETONES,URINE (UA) TRACE mg/dL (NEGATIVE); LEUKOCYTE ESTERASE, URINE MODERATE (NEGATIVE); NITRITE,URINE POSITIVE (NEGATIVE); OCCULT BLOOD,URINE MODERATE (NEGATIVE); PH,URINE 5.5 PH (5.0-7.5); PROTEIN,URINE 30 mg/dL (NEGATIVE); UROBILINOGEN,URINE 0.2 (NORMAL) E.U./dL (NORMAL)
[2022-10-06 10:50] LABS: CLARITY,URINE SL. CLOUDY (CLEAR)
[2022-10-06 10:51] LABS: BILIRUBIN,URINE NEGATIVE (NEGATIVE); ICTOTEST,URINE NEGATIVE
[2022-10-06 10:55] LABS: BACTERIA,URINE Few /HPF (None Seen); RBC,URINE 0-5 /HPF (0-5); SQUAMOUS EPITHELIAL CELL,UR FEW Squamous (<= Few); WBC,URINE >25 /HPF (0-5)
[2022-10-06] MEDS ORDERED: D5.45NS W/20 MEQ KCL 1,000 ML IV STA (16:32)
[2022-10-06] MEDS ORDERED: ACETAMINOPHEN 500 MG TABLET PO PRN (16:34)
[2022-10-06] MEDS ORDERED: ACETAMINOPHEN 500 MG TABLET PO SCH (17:00)
[2022-10-06] MEDS ORDERED: TOPIRAMATE 100 MG TABLET PO STA (17:22)
[2022-10-06 19:41] LABS: B. PARAPERTUSSIS- RESP PCR PAN NOT DETECTED; B. PERTUSSIS- RESP PCR PANEL NOT DETECTED; C. PNEUMONIAE- RESP PCR PANEL NOT DETECTED; CORONAVIRUS 229E-RESP PCR NOT DETECTED; CORONAVIRUS HKU1-RESP PCR NOT DETECTED; CORONAVIRUS NL63-RESP PCR NOT DETECTED; CORONAVIRUS OC43-RESP PCR NOT DETECTED; HUMAN METAPNEUMOVIRUS NOT DETECTED; INFLUENZA A- RESP PCR PANEL NOT DETECTED; INFLUENZA B - RESP PCR PANEL NOT DETECTED; M. PNEUMONIAE- RESP PCR PANEL NOT DETECTED; PARAINFLUENZA VIRUS 1 NOT DETECTED; PARAINFLUENZA VIRUS 2 NOT DETECTED; PARAINFLUENZA VIRUS 3 NOT DETECTED; PARAINFLUENZA VIRUS 4 NOT DETECTED; RHINOVIRUS/ENTEROVIRUS NOT DETECTED; RSV- RESP PCR PANEL NOT DETECTED; SARS-CoV-2 -RESP PCR PANEL NOT DETECTED
[2022-10-06] MEDS: ACETAMINOPHEN 325 MG TABLET PO SCH (21:14)
[2022-10-06] MEDS: TOPIRAMATE 100 MG TABLET PO SCH (21:14)
[2022-10-06] MEDS: MONTELUKAST 10 MG TABLET PO SCH (21:14)
[2022-10-06] MEDS: carvediloL 12.5 MG TABLET PO SCH (21:14)
[2022-10-06] MEDS: EMOLLIENT CREAM 57 GM TUBE TOP SCH (21:27)
[2022-10-06] MEDS ORDERED: ceFAZolin 1 GM VIAL ONE (22:47)
[2022-10-06] MEDS: ceFAZolin 1 GM in SODIUM CHLORIDE 0.9% MINIBAG 100 ML IV SCH (22:58)
[2022-10-07] MEDS ORDERED: KETOROLAC 30 MG/ML VIAL IVP STA (00:30)
[2022-10-07] MEDS ORDERED: ceFAZolin 1 GM VIAL ONE (05:36)
[2022-10-07] MEDS: ceFAZolin 1 GM in SODIUM CHLORIDE 0.9% MINIBAG 100 ML IV SCH ×3 (05:43→21:53)
[2022-10-07 05:55] LABS: BASOPHILS % (AUTO) 0.1 %; EOSINOPHILS # (AUTO) 0.1 10^3/uL (0.0-0.7); EOSINOPHILS % (AUTO) 0.7 %; HCT - HEMATOCRIT 37.4 % (37.0-47.0); HGB - HEMOGLOBIN 11.6 g/dL (12.0-16.0); LYMPHOCYTES # (AUTO) 1.3 10^3/uL (1.5-3.5); LYMPHOCYTES % (AUTO) 15.8 %; MEAN CORPUSCULAR HEMOGLOBIN 30.4 pg (27.0-31.0); MEAN CORPUSCULAR VOLUME 97.9 fL (81.0-99.0); MEAN PLATELET VOLUME 10.2 fL (7.9-10.8); MONOCYTES # (AUTO) 0.9 10^3/uL (0.0-1.0); NEUTROPHILS % (AUTO) 71.7 %; PLT - PLATELET COUNT 362 10^3/uL (130-450); RED BLOOD COUNT 3.82 10^6/uL (4.20-5.40); RED CELL DISTRIBUTION WIDTH 14.6 % (12.0-15.0); WHITE BLOOD COUNT 8.4 x10^3/uL (4.8-10.8)
[2022-10-07 06:05] LABS: CALCIUM 8.7 mg/dL (8.5-10.3); CREATININE 0.9 mg/dL (0.4-1.0); POTASSIUM 3.5 mmol/L (3.5-5.0)
[2022-10-07] MEDS: PANTOPRAZOLE 40 MG TABLET PO SCH (06:21)
[2022-10-07] MEDS: ACETAMINOPHEN 325 MG TABLET PO SCH ×4 (07:50→21:46)
[2022-10-07] MEDS: ENOXAPARIN 40 MG/0.4 ML SYRINGE SUBQ SCH (08:30)
[2022-10-07] MEDS: CLOPIDOGREL 75 MG TABLET PO SCH (08:30)
[2022-10-07] MEDS: DULoxetine 30 MG CAPSULE PO SCH (08:30)
[2022-10-07] MEDS: carvediloL 12.5 MG TABLET PO SCH ×2 (08:30→21:46)
[2022-10-07] MEDS: TOPIRAMATE 100 MG TABLET PO SCH ×2 (08:31→21:49)
[2022-10-07] MEDS: EMOLLIENT CREAM 57 GM TUBE TOP SCH ×2 (08:31→21:47)
[2022-10-07] MEDS: ONDANSETRON 4 MG/2 ML VIAL IVP PRN ×2 (09:41→19:23)
[2022-10-07] MEDS ORDERED: diphenhydrAMINE ELIXIR 25 MG/10 ML UDC PO STA (13:55)
[2022-10-07] MEDS ORDERED: MAG HYDROX/AL HYDROX/SIMETH 30 ML UDC PO STA (14:02)
--- NOTE | 2022-10-07 14:40 | XRAY Report ---
PROCEDURE: Ankle 3 View RT INDICATIONS: ankle pain with ROM TECHNIQUE: 3 views of the ankle were acquired. COMPARISON: None FINDINGS: Bones: No fractures or dislocations. Ankle mortise is normally aligned. No suspicious bony lesions . Generalized decreased osseous mineralization present. Soft tissues: No tibiotalar joint effusion. Achilles tendon appears normal. IMPRESSION: Generalized osteopenia. No radiographic evidence of fracture. Consider follow-up MRI if clinically in dicated. Reviewed by: Satish Murrell MD on 10/07/2022 1:39 PM [facility] Approved by: Satish Murrell MD on 10/07/2022 1:39 PM [facility] Station ID: [id number]
--- NOTE | 2022-10-07 15:55 | ED Physician Documentation ---
ED Addendum - Addendum Addendum: 10/07/22 15:53 The patient states she is comfortable in bed. She has noticed some pain with the right ankle and a little bruising. She was not aware of injury to it. There is some notable mild swelling and mild ecchymosis on the anterolateral ankle. We will get an x-ray and provide an ankle brace. She states her back feels comfortable. She is in a hospital bed. We are continuing her usual home medicines. Nursing and techs will provide rolling of the patient with cleansing of the back and applying of some ointment twice daily. She remains on Ancef for UTI and also concern of skin infection. We will presumably continue this for 5-6 days. Social work will see the patient tomorrow regarding home care or placement. We have not seen the patient's here.
[2022-10-07] MEDS: MONTELUKAST 10 MG TABLET PO SCH (21:48)
[2022-10-08] MEDS: ceFAZolin 1 GM in SODIUM CHLORIDE 0.9% MINIBAG 100 ML IV SCH ×3 (05:53→21:44)
[2022-10-08] MEDS: PANTOPRAZOLE 40 MG TABLET PO SCH (06:29)
[2022-10-08] MEDS: DULoxetine 30 MG CAPSULE PO SCH (10:54)
[2022-10-08] MEDS: TOPIRAMATE 100 MG TABLET PO SCH ×2 (10:54→20:51)
[2022-10-08] MEDS: carvediloL 12.5 MG TABLET PO SCH ×2 (10:54→20:51)
[2022-10-08] MEDS: ACETAMINOPHEN 325 MG TABLET PO SCH ×4 (10:54→20:51)
[2022-10-08] MEDS: CLOPIDOGREL 75 MG TABLET PO SCH (10:54)
[2022-10-08] MEDS: EMOLLIENT CREAM 57 GM TUBE TOP SCH ×2 (10:57→20:51)
[2022-10-08] MEDS: ENOXAPARIN 40 MG/0.4 ML SYRINGE SUBQ SCH (10:57)
[2022-10-08 15:11] LABS: BASOPHILS % (AUTO) 0.1 %; EOSINOPHILS # (AUTO) 0.1 10^3/uL (0.0-0.7); EOSINOPHILS % (AUTO) 1.1 %; HCT - HEMATOCRIT 37.7 % (37.0-47.0); HGB - HEMOGLOBIN 11.5 g/dL (12.0-16.0); LYMPHOCYTES # (AUTO) 1.1 10^3/uL (1.5-3.5); LYMPHOCYTES % (AUTO) 13.8 %; MEAN CORPUSCULAR HEMOGLOBIN 30.6 pg (27.0-31.0); MEAN CORPUSCULAR HGB CONC 30.5 g/dL (32.0-36.0); MEAN CORPUSCULAR VOLUME 100.3 fL (81.0-99.0); MEAN PLATELET VOLUME 9.9 fL (7.9-10.8); MONOCYTES # (AUTO) 0.8 10^3/uL (0.0-1.0); MONOCYTES % (AUTO) 10.2 %; NEUTROPHILS # (AUTO) 5.9 10^3/uL (1.5-6.6); PLT - PLATELET COUNT 370 10^3/uL (130-450); RED BLOOD COUNT 3.76 10^6/uL (4.20-5.40); RED CELL DISTRIBUTION WIDTH 14.6 % (12.0-15.0); WHITE BLOOD COUNT 7.9 x10^3/uL (4.8-10.8)
[2022-10-08 15:21] LABS: ALBUMIN 2.9 g/dL (3.2-5.5); ALBUMIN/GLOBULIN RATIO 0.9 (1.0-2.2); ALKALINE PHOSPHATASE 71 IU/L (42-121); ALT ALANINE AMINOTRANSFERASE < 10 IU/L (10-60); AST ASPARTATE AMINOTRANSFERASE 16 IU/L (10-42); BILIRUBIN,TOTAL 0.6 mg/dL (0.2-1.0); BUN - BLOOD UREA NITROGEN 18 mg/dL (6-20); CALCIUM 8.7 mg/dL (8.5-10.3); CARBON DIOXIDE - CO2 20 mmol/L (21-32); CHLORIDE 108 mmol/L (101-111); GLUCOSE 114 mg/dL (70-100); POTASSIUM 3.8 mmol/L (3.5-5.0); SODIUM 138 mmol/L (135-145)
[2022-10-08 15:29] LABS: CREATININE 0.9 mg/dL (0.4-1.0); GFR - MDRD 62 (>89)
[2022-10-08] MEDS: MONTELUKAST 10 MG TABLET PO SCH (20:51)
[2022-10-09] MEDS: ceFAZolin 1 GM in SODIUM CHLORIDE 0.9% MINIBAG 100 ML IV SCH ×3 (05:36→22:24)
[2022-10-09] MEDS: PANTOPRAZOLE 40 MG TABLET PO SCH (06:31)
[2022-10-09] MEDS: ACETAMINOPHEN 325 MG TABLET PO SCH ×4 (09:58→21:29)
[2022-10-09] MEDS: EMOLLIENT CREAM 57 GM TUBE TOP SCH ×2 (09:58→21:31)
[2022-10-09] MEDS: DULoxetine 30 MG CAPSULE PO SCH (09:58)
[2022-10-09] MEDS: carvediloL 12.5 MG TABLET PO SCH ×2 (09:58→21:31)
[2022-10-09] MEDS: CLOPIDOGREL 75 MG TABLET PO SCH (09:58)
[2022-10-09] MEDS: ENOXAPARIN 40 MG/0.4 ML SYRINGE SUBQ SCH (09:58)
[2022-10-09] MEDS: TOPIRAMATE 100 MG TABLET PO SCH ×2 (09:59→21:31)
--- NOTE | 2022-10-09 17:22 | ED Physician Documentation ---
ED Addendum - Addendum Addendum: 10/09/22 17:20 72-year-old female has been boarding in the emergency department for several days. She would have been admitted initially for leukocytosis, cellulitis and UTI, but no beds were available and no transfer beds available. She has been treated in the emergency department with IV antibiotics and IVF. Her laboratory testing has continued to improve. She does not have a leukocytosis anymore. She is feeling better overall. Social work was consulted today and we will look for placement for the patient. The patient does have skin breakdown and wounds that are continuing to improve. A wound consult was placed, we will look for recommendations from wound care. This document was made in part using voice recognition software. While efforts are made to proofread this document, sound alike and grammatical errors may occur.
[2022-10-09] MEDS: MONTELUKAST 10 MG TABLET PO SCH (21:31)
[2022-10-09] MEDS ORDERED: ceFAZolin 1 GM VIAL ONE (22:22)
[2022-10-10] MEDS: ceFAZolin 1 GM in SODIUM CHLORIDE 0.9% MINIBAG 100 ML IV SCH ×3 (05:59→22:27)
[2022-10-10] MEDS: PANTOPRAZOLE 40 MG TABLET PO SCH (06:40)
[2022-10-10] MEDS: carvediloL 12.5 MG TABLET PO SCH ×2 (12:29→21:37)
[2022-10-10] MEDS: ACETAMINOPHEN 325 MG TABLET PO SCH ×4 (12:29→21:35)
[2022-10-10] MEDS: CLOPIDOGREL 75 MG TABLET PO SCH (12:30)
[2022-10-10] MEDS: TOPIRAMATE 100 MG TABLET PO SCH ×2 (12:30→21:36)
[2022-10-10] MEDS: ENOXAPARIN 40 MG/0.4 ML SYRINGE SUBQ SCH (12:30)
[2022-10-10] MEDS: EMOLLIENT CREAM 57 GM TUBE TOP SCH ×2 (12:30→21:39)
[2022-10-10] MEDS: DULoxetine 30 MG CAPSULE PO SCH (12:30)
[2022-10-10] MEDS: MONTELUKAST 10 MG TABLET PO SCH (21:34)
[2022-10-10] MEDS: ONDANSETRON 4 MG/2 ML VIAL IVP PRN (22:36)
[2022-10-11] MEDS: ONDANSETRON 4 MG/2 ML VIAL IVP PRN (04:43)
[2022-10-11] MEDS: PANTOPRAZOLE 40 MG TABLET PO SCH (06:44)
[2022-10-11] MEDS ORDERED: DROPERIDOL 5 MG/2 ML VIAL IVP STA (09:49)
[2022-10-11] MEDS: ENOXAPARIN 40 MG/0.4 ML SYRINGE SUBQ SCH (10:05)
[2022-10-11] MEDS: EMOLLIENT CREAM 57 GM TUBE TOP SCH ×2 (10:06→20:39)
[2022-10-11] MEDS: TOPIRAMATE 100 MG TABLET PO SCH ×2 (10:06→20:39)
[2022-10-11 10:17] LABS: BILIRUBIN,URINE NEGATIVE (NEGATIVE); GLUCOSE, URINE (UA) NEGATIVE (NEGATIVE); KETONES,URINE (UA) NEGATIVE (NEGATIVE); LEUKOCYTE ESTERASE, URINE TRACE (NEGATIVE); NITRITE,URINE NEGATIVE (NEGATIVE); OCCULT BLOOD,URINE LARGE (NEGATIVE); PH,URINE 5.5 PH (5.0-7.5); PROTEIN,URINE NEGATIVE (NEGATIVE); UROBILINOGEN,URINE 0.2 (NORMAL) E.U./dL (NORMAL)
[2022-10-11 10:18] LABS: CLARITY,URINE HAZY (CLEAR)
[2022-10-11 10:27] LABS: BACTERIA,URINE Moderate /HPF (None Seen); RBC,URINE TNTC /HPF (0-5); SQUAMOUS EPITHELIAL CELL,UR FEW Squamous (<= Few)
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
[2022-10-11] MEDS: CLOPIDOGREL 75 MG TABLET PO SCH (10:31)
[2022-10-11] MEDS: DULoxetine 30 MG CAPSULE PO SCH (10:31)
[2022-10-11] MEDS: carvediloL 12.5 MG TABLET PO SCH ×2 (10:31→20:38)
[2022-10-11] MEDS: ACETAMINOPHEN 325 MG TABLET PO SCH ×4 (10:31→20:38)
[2022-10-11] MEDS ORDERED: PROCHLORPERAZINE 10 MG/2 ML VIAL IVP STA (11:40)
[2022-10-11] MEDS ORDERED: MAG HYDROX/AL HYDROX/SIMETH 30 ML UDC PO STA (11:41)
[2022-10-11 11:57] LABS: BASOPHILS % (AUTO) 0.1 %; EOSINOPHILS # (AUTO) 0.1 10^3/uL (0.0-0.7); EOSINOPHILS % (AUTO) 0.9 %; HCT - HEMATOCRIT 40.8 % (37.0-47.0); HGB - HEMOGLOBIN 12.8 g/dL (12.0-16.0); LYMPHOCYTES # (AUTO) 1.2 10^3/uL (1.5-3.5); LYMPHOCYTES % (AUTO) 16.5 %; MEAN CORPUSCULAR HEMOGLOBIN 30.4 pg (27.0-31.0); MEAN CORPUSCULAR HGB CONC 31.4 g/dL (32.0-36.0); MEAN CORPUSCULAR VOLUME 96.9 fL (81.0-99.0); MEAN PLATELET VOLUME 9.5 fL (7.9-10.8); MONOCYTES # (AUTO) 0.8 10^3/uL (0.0-1.0); MONOCYTES % (AUTO) 10.6 %; PLT - PLATELET COUNT 407 10^3/uL (130-450); RED BLOOD COUNT 4.21 10^6/uL (4.20-5.40); RED CELL DISTRIBUTION WIDTH 14.6 % (12.0-15.0); WHITE BLOOD COUNT 7.1 x10^3/uL (4.8-10.8)
[2022-10-11 12:13] LABS: ALBUMIN/GLOBULIN RATIO 0.9 (1.0-2.2); ALKALINE PHOSPHATASE 70 IU/L (42-121); ALT ALANINE AMINOTRANSFERASE < 10 IU/L (10-60); AST ASPARTATE AMINOTRANSFERASE 19 IU/L (10-42); BILIRUBIN,TOTAL 0.6 mg/dL (0.2-1.0); BUN - BLOOD UREA NITROGEN 17 mg/dL (6-20); CARBON DIOXIDE - CO2 23 mmol/L (21-32); CHLORIDE 106 mmol/L (101-111); CREATININE 0.8 mg/dL (0.4-1.0); GFR - MDRD 71 (>89); GLUCOSE 111 mg/dL (70-100); LIPASE 25 U/L (22-51); SODIUM 138 mmol/L (135-145); TOTAL PROTEIN 6.5 g/dL (6.7-8.2)
[2022-10-11] MEDS: ONDANSETRON ODT 4 MG TABLET TL PRN (19:41)
[2022-10-11] MEDS: MONTELUKAST 10 MG TABLET PO SCH (20:39)
[2022-10-12] MEDS ORDERED: LIDOCAINE VISCOUS 2% 15 ML ORAL SYRINGE MM STA (02:55)
[2022-10-12] MEDS ORDERED: MAG HYDROX/AL HYDROX/SIMETH 30 ML UDC PO STA ×2 (02:55→10:41)
[2022-10-12] MEDS: ONDANSETRON ODT 4 MG TABLET TL PRN ×2 (03:07→09:55)
[2022-10-12] MEDS: PANTOPRAZOLE 40 MG TABLET PO SCH (06:35)
[2022-10-12] MEDS: ACETAMINOPHEN 325 MG TABLET PO SCH ×2 (07:58→12:54)
[2022-10-12] MEDS: DULoxetine 30 MG CAPSULE PO SCH (08:27)
[2022-10-12] MEDS: carvediloL 12.5 MG TABLET PO SCH (08:27)
[2022-10-12] MEDS: CLOPIDOGREL 75 MG TABLET PO SCH (08:27)
[2022-10-12] MEDS: ENOXAPARIN 40 MG/0.4 ML SYRINGE SUBQ SCH (08:28)
[2022-10-12] MEDS: TOPIRAMATE 100 MG TABLET PO SCH (08:28)
[2022-10-12] MEDS: EMOLLIENT CREAM 57 GM TUBE TOP SCH (08:28)
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
[2022-10-12 15:02] VITALS: BP 136/74
== END 2022-10-12 15:02 | disposition home or self-care (01) ==
LOC: EDUNIT# → ED 09:14
DX: N39.0 Urinary tract infection, site not specified (principal); R53.1 Weakness; T74.01XA Adult neglect or abandonment, confirmed, initial encounter; Y08.89XA Assault by other specified means, initial encounter; Y07.01 Husband, perpetrator of maltreatment and neglect; M25.571 Pain in right ankle and joints of right foot; L03.317 Cellulitis of buttock; L03.312 Cellulitis of back [any part except buttock and flank]; L03.114 Cellulitis of left upper limb; L03.113 Cellulitis of right upper limb; D72.829 Elevated white blood cell count, unspecified; R11.0 Nausea; R41.0 Disorientation, unspecified; Z74.2 Need for assistance at home and no other household member able to render care; Z20.822 Contact with and (suspected) exposure to COVID-19
CPT/HCPCS: 36415; 51702; 71045; 73610; 80048; 80053; 81001; 82550; 83605; 83690; 83735; 85025; 87040; 87077; 87086; 87181; 87633; 87635; 93005; 96365; 96366; 96368; 96372; 96375; 96376; 99284; A9270; J1650; Q0162; 81003

== ENCOUNTER 2022-10-12 15:04 | Outpatient (CLI) | payer MEDICARE, MEDICAID | END 2022-10-12 15:05 | LOC: EMS 15:04 | PROVIDERS: ATTEND Emergency Medicine | DX: R41.0 Disorientation, unspecified (principal) | CPT/HCPCS: A0425; A0428 ==

== ENCOUNTER 2022-11-23 17:47 | Outpatient (CLI) | payer MEDICARE, MEDICAID | END 2022-11-23 17:48 | disposition critical access hospital (66) | LOC: EMS 17:47 | DX: T83.028A Displacement of other urinary catheter, initial encounter (principal); R53.1 Weakness | CPT/HCPCS: A0425; A0429 ==

== ENCOUNTER 2022-11-23 17:53 | Emergency (ER) | payer MEDICARE, MEDICAID ==
[2022-11-23] MEDS ORDERED: NITROFURANTOIN MACRO 100 MG CAPSULE PO STA (18:38)
--- NOTE | 2022-11-23 18:40 | ED Physician Documentation ---
History of Present Illness - Stated complaint Stated Complaint: CEE PLACEMENT - Chief complaint Chief Complaint: General - History obtained from History obtained from: Patient, EMS - Additonal information Additional information: 72-year-old [facility] with a chronic indwelling Cee that became obstructed today. PD PAST MEDICAL HISTORY - Past Medical History Cardiovascular: Hypertension, Arrhythmia Respiratory: Other, Asthma Neuro: Seizure disorder, CVA Endocrine/Autoimmune: None GI: Other SPECIFICATION WRITER: None : None Psych: None Musculoskeletal: Osteoarthritis Derm: Other - Past Surgical History Past Surgical History: Yes General: Cholecystectomy Ortho: Spine surgery /SPECIFICATION WRITER: Hysterectomy HEENT: Tonsil/Adenoidectomy - Present Medications Home Medications: Ambulatory Orders Medication Instructions Recorded Confirmed Multivitamin [Multi-Day Vitamins] 1 each PO DAILY 10/22/13 10/06/22 Topiramate [Topamax] 200 mg PO DAILY 10/22/13 10/06/22 Duloxetine HCl [Cymbalta] 60 mg PO DAILY 08/07/18 10/06/22 Carvedilol 6.25 mg PO BID 05/17/19 10/06/22 Montelukast [Singulair] 10 mg PO QPM 05/17/19 10/06/22 Topiramate [Topamax] 150 mg PO QPM 05/18/19 10/06/22 Pantoprazole [Protonix] 40 mg PO DAILY 01/02/22 10/06/22 Clopidogrel [Plavix] 75 mg PO DAILY 10/06/22 10/06/22 Nitrofurantoin [Macrobid] 1 cap PO BID #20 cap 11/23/22 - Allergies Allergies/Adverse Reactions: Allergies Allergy/AdvReac Type Severity Reaction Status Date / Time Penicillins Allergy Severe Respiratory Verified 10/06/22 09:33 amitriptyline [From Elavil] Allergy Unknown Verified 10/06/22 09:33 aspirin Allergy resp Verified 10/06/22 09:33 diphenhydramine HCl * Allergy Hives Verified 10/06/22 09:33 [From Benadryl] divalproex sodium Allergy Unknown Verified 10/06/22 09:33 egg Allergy Unknown Verified 10/06/22 09:33 iodine Allergy resp Verified 09/24/22 09:17 micafungin sodium * Allergy Anaphylaxis Verified 10/06/22 09:33 [From Mycamine] oxytetracycline Allergy resp Verified 10/06/22 09:33 [From Terramycin] oxytetracycline HCl * Allergy resp Verified 10/06/22 09:33 [From Terramycin] prednisone Allergy Unknown Verified 10/06/22 09:33 valproate sodium * AdvReac Nausea Verified 10/06/22 09:33 [From Depakene] valproic acid [From Depakene] AdvReac Nausea Verified 10/06/22 09:33 - Social History Does the pt smoke?: No Smoking Status: Never smoker Does the pt drink ETOH?: Yes Does the pt have substance abuse?: No - Immunizations Immunizations are current?: Yes - POLST Patient has POLST: No POLST Status: Full Code PD ED PE NORMAL - Vitals Vital signs reviewed: Yes - General General: Other (Alert and oriented to person and place but not time or events) - Abdomen Abdomen: Non tender - Female Female : Other (On my evaluation a Cee has already been placed that has purulent urine in the bag.) - Derm Derm: Normal color, Warm and dry - Neuro Eye Opening: Spontaneous Motor: Obeys Commands Verbal: Confused GCS Score: 14 Results - Vitals Vitals: Vital Signs - 24 hr 11/23/22 11/23/22 18:00 18:54 Temperature 36.6 C Heart Rate 78 84 Respiratory 18 18 Rate Blood Pressure 143/58 H 152/71 H O2 Saturation 98 99 Oxygen O2 Source [With Activity] Room air O2 Source Room air - Labs Labs: Laboratory Tests 11/23/22 18:39 Urine Color RED/BLOODY Urine Clarity BLOODY Urine pH 6.5 Ur Specific [place] 1.025 Urine Protein 100 H Urine Glucose (UA) NEGATIVE Urine Ketones NEGATIVE Urine Occult Blood LARGE H Urine Nitrite POSITIVE H Urine Bilirubin NEGATIVE Urine Urobilinogen 0.2 (NORMAL) Ur Leukocyte Esterase SMALL H Urine RBC TNTC H Urine WBC >25 H Ur Squamous Epith Cells FEW Squamous Urine Crystals 3-5 Calcium Oxalate Urine Bacteria Rare Ur Microscopic Review INDICATED Urine Culture Comments INDICATED PD Medical Decision Making - ED course ED course: 72-year-old with dementia has chronic indwelling Cee and has an obstructed catheter that looks like it is related to an infection, her catheter was replaced and we will treat with Macrobid. Departure - Departure Disposition: 01 Home, Self Care Clinical Impression: Catheter-associated urinary tract infection Qualifiers: Indwelling urinary catheter type: indwelling urethral catheter Encounter type: initial encounter Qualified Code(s): T83.511A - Infection and inflammatory reaction due to indwelling urethral catheter, initial encounter Obstructed Cee catheter Qualifiers: Encounter type: initial encounter Qualified Code(s): T83.091A - Other mechanical complication of indwelling urethral catheter, initial encounter Condition: Good Record reviewed to determine appropriate education?: Yes Instructions: ED UTI Cystitis Female Prescriptions: Nitrofurantoin [Macrobid] 1 cap PO BID #20 cap Comments: We will culture your urine, the results should be done in 48-72 hours. If an antibiotic change is necessary we will call you. Return if worse in the meantime, especially if you develop increasing flank pain, fevers, or cannot keep down the medication. Discharge Date/Time: 11/23/22 18:55
[2022-11-23 18:54] VITALS: BP 152/71
[2022-11-23 18:57] LABS: BILIRUBIN,URINE NEGATIVE (NEGATIVE); GLUCOSE, URINE (UA) NEGATIVE (NEGATIVE); KETONES,URINE (UA) NEGATIVE (NEGATIVE); LEUKOCYTE ESTERASE, URINE SMALL (NEGATIVE); NITRITE,URINE POSITIVE (NEGATIVE); OCCULT BLOOD,URINE LARGE (NEGATIVE); PH,URINE 6.5 PH (5.0-7.5); PROTEIN,URINE 100 mg/dL (NEGATIVE); UROBILINOGEN,URINE 0.2 (NORMAL) E.U./dL (NORMAL)
[2022-11-23 19:00] LABS: CLARITY,URINE BLOODY (CLEAR); RBC,URINE TNTC /HPF (0-5); WBC,URINE >25 /HPF (0-5)
[2022-11-23 19:01] LABS: BACTERIA,URINE Rare /HPF (None Seen); CRYSTALS,URINE 3-5 Calcium Oxalate /LPF; SQUAMOUS EPITHELIAL CELL,UR FEW Squamous (<= Few)
== END 2022-11-23 18:55 | disposition home or self-care (01) ==
LOC: EDUNIT# → ED 17:53
DX: T83.511A Infection and inflammatory reaction due to indwelling urethral catheter, initial encounter (principal); T83.091A Other mechanical complication of indwelling urethral catheter, initial encounter
CPT/HCPCS: 51702; 81001; 87086; 87181; 99283; A9270; 81003

== ENCOUNTER 2022-11-23 18:53 | Outpatient (CLI) | payer MEDICARE, MEDICAID | END 2022-11-23 18:54 | disposition home or self-care (01) | LOC: EMS 18:53 | PROVIDERS: ATTEND Emergency Medicine | DX: R41.0 Disorientation, unspecified (principal); E66.01 Morbid (severe) obesity due to excess calories; Z74.01 Bed confinement status | CPT/HCPCS: A0425; A0428 ==

== ENCOUNTER 2022-12-01 19:40 | Outpatient (CLI) | payer MEDICARE, MEDICAID ==
[2022-12-01 20:33] LABS: BASOPHILS % (AUTO) 0.1 %; EOSINOPHILS # (AUTO) 0.1 10^3/uL (0.0-0.7); EOSINOPHILS % (AUTO) 0.9 %; HCT - HEMATOCRIT 42.4 % (37.0-47.0); HGB - HEMOGLOBIN 13.4 g/dL (12.0-16.0); LYMPHOCYTES # (AUTO) 1.7 10^3/uL (1.5-3.5); LYMPHOCYTES % (AUTO) 15.3 %; MEAN CORPUSCULAR HEMOGLOBIN 30.9 pg (27.0-31.0); MEAN CORPUSCULAR HGB CONC 31.6 g/dL (32.0-36.0); MEAN CORPUSCULAR VOLUME 97.9 fL (81.0-99.0); MEAN PLATELET VOLUME 10.6 fL (7.9-10.8); MONOCYTES # (AUTO) 1.2 10^3/uL (0.0-1.0); MONOCYTES % (AUTO) 11.2 %; NEUTROPHILS # (AUTO) 7.9 10^3/uL (1.5-6.6); NEUTROPHILS % (AUTO) 72.1 %; PLT - PLATELET COUNT 237 10^3/uL (130-450); RED BLOOD COUNT 4.33 10^6/uL (4.20-5.40); RED CELL DISTRIBUTION WIDTH 13.9 % (12.0-15.0)
[2022-12-01 21:45] LABS: ESTIMATED AVERAGE GLUCOSE 97 mg/dL (70-100)
== END 2022-12-01 23:59 | disposition home or self-care (01) ==
LOC: LAB.R 19:40
DX: Z53.9 Procedure and treatment not carried out, unspecified reason (principal)
CPT/HCPCS: 80053; 80061; 83036; 83721; 84443; 85025

== ENCOUNTER 2022-12-03 08:00 | Outpatient (CLI) | payer MEDICARE, MEDICAID | END 2022-12-03 23:59 | disposition home or self-care (01) | LOC: LAB.R 08:00 | DX: H10.9 Unspecified conjunctivitis (principal); L89.610 Pressure ulcer of right heel, unstageable | CPT/HCPCS: 87070; 87181; 87205 ==

== ENCOUNTER 2023-05-31 14:02 | Outpatient (CLI) | payer MEDICARE, MEDICAID ==
[2023-05-31 14:11] LABS: BASOPHILS % (AUTO) 0.1 %; EOSINOPHILS # (AUTO) 0.2 10^3/uL (0.0-0.7); EOSINOPHILS % (AUTO) 2.3 %; HCT - HEMATOCRIT 43.8 % (37.0-47.0); HGB - HEMOGLOBIN 13.8 g/dL (12.0-16.0); LYMPHOCYTES # (AUTO) 1.8 10^3/uL (1.5-3.5); LYMPHOCYTES % (AUTO) 21.1 %; MEAN CORPUSCULAR HEMOGLOBIN 30.7 pg (27.0-31.0); MEAN CORPUSCULAR HGB CONC 31.5 g/dL (32.0-36.0); MEAN CORPUSCULAR VOLUME 97.6 fL (81.0-99.0); MEAN PLATELET VOLUME 10.6 fL (7.9-10.8); MONOCYTES # (AUTO) 0.9 10^3/uL (0.0-1.0); MONOCYTES % (AUTO) 10.7 %; NEUTROPHILS # (AUTO) 5.5 10^3/uL (1.5-6.6); NEUTROPHILS % (AUTO) 65.3 %; PLT - PLATELET COUNT 244 10^3/uL (130-450); RED BLOOD COUNT 4.49 10^6/uL (4.20-5.40); RED CELL DISTRIBUTION WIDTH 14.4 % (12.0-15.0); WHITE BLOOD COUNT 8.4 x10^3/uL (4.8-10.8)
[2023-05-31 14:30] LABS: ALBUMIN 3.3 g/dL (3.2-5.5); ALBUMIN/GLOBULIN RATIO 1.2 (1.0-2.2); BILIRUBIN,TOTAL 0.4 mg/dL (0.2-1.0); CREATININE 1.1 mg/dL (0.6-1.3); POTASSIUM 3.8 mmol/L (3.5-4.5); TOTAL PROTEIN 6.1 g/dL (6.4-8.9)
== END 2023-05-31 14:03 | disposition home or self-care (01) ==
LOC: LAB.R 14:02
PROVIDERS: ATTEND Registered Nurse
DX: N18.2 Chronic kidney disease, stage 2 (mild) (principal); I67.9 Cerebrovascular disease, unspecified
CPT/HCPCS: 80053; 85025

== ENCOUNTER 2023-07-02 11:41 | Inpatient (IN) | payer MEDICARE, MEDICAID ==
[2023-07-02 12:18] LABS: BASOPHILS % (AUTO) 0.1 %; HCT - HEMATOCRIT 46.1 % (37.0-47.0); HGB - HEMOGLOBIN 14.7 g/dL (12.0-16.0); LYMPHOCYTES % (AUTO) 2.3 %; MEAN CORPUSCULAR HEMOGLOBIN 30.4 pg (27.0-31.0); MEAN CORPUSCULAR HGB CONC 31.9 g/dL (32.0-36.0); MEAN CORPUSCULAR VOLUME 95.4 fL (81.0-99.0); MONOCYTES % (AUTO) 8.1 %; NEUTROPHILS % (AUTO) 88.7 %; PLT - PLATELET COUNT 237 10^3/uL (130-450); RED BLOOD COUNT 4.83 10^6/uL (4.20-5.40); RED CELL DISTRIBUTION WIDTH 14.6 % (12.0-15.0)
[2023-07-02 12:21] LABS: ABNORMAL LYMPHS % (MANUAL) 0 %
[2023-07-02 12:39] LABS: ALBUMIN 3.6 g/dL (3.2-5.5); ALBUMIN/GLOBULIN RATIO 1.1 (1.0-2.2); ALKALINE PHOSPHATASE 85 IU/L (42-121); ALT ALANINE AMINOTRANSFERASE 18 IU/L (10-60); AST ASPARTATE AMINOTRANSFERASE 21 IU/L (10-42); BILIRUBIN,TOTAL 0.8 mg/dL (0.2-1.0); BUN - BLOOD UREA NITROGEN 51 mg/dL (6-20); CALCIUM 10.1 mg/dL (8.5-10.3); CARBON DIOXIDE - CO2 19 mmol/L (21-32); CHLORIDE 107 mmol/L (101-111); CREATININE 5.3 mg/dL (0.6-1.3); GFR - MDRD 8 (>89); GLUCOSE 138 mg/dL (74-104); LIPASE < 10 U/L (11-82); SODIUM 139 mmol/L (135-145); TOTAL PROTEIN 6.9 g/dL (6.4-8.9)
[2023-07-02 12:42] LABS: BAND NEUTROPHILS % (MANUAL) 7 %; LYMPHOCYTES # (MANUAL) 0.6 10^3/uL (1.5-3.5); LYMPHOCYTES % (MANUAL) 2 %; MONOCYTES # (MANUAL) 2.8 10^3/uL (0.0-1.0); NEUTROPHILS # (MANUAL) 24.6 10^3/uL (1.5-6.6)
[2023-07-02 12:43] LABS: DIFFERENTIAL COMMENT MANUAL DIFFERENTIAL
--- NOTE | 2023-07-02 13:05 | XRAY Report ---
PROCEDURE: Chest 1 View X-Ray INDICATIONS: DYSPNEA/AMS TECHNIQUE: One view of the chest was acquired. COMPARISON: Chest x-ray 10/06/2022. FINDINGS: Surgical changes and devices: Right upper quadrant surgical clips.. Lungs and pleura: No pleural effusions or pneumothorax. Lungs are clear. Mediastinum: Mediastinal contours appear normal. Heart size is normal. Bones and chest wall: No suspicious bony lesions. Overlying soft tissues appear unremarkable. IMPRESSION: No acute cardiopulmonary process. Reviewed by: Hugo Villanueva MD on 07/02/2023 1:04 PM PDT Approved by: Hugo Villanueva MD on 07/02/2023 1:04 PM PDT Station ID: [id number]
[2023-07-02] MEDS ORDERED: cefTRIAXone 2 GM in SODIUM CHLORIDE 0.9% MINIBAG 100 ML IV STA (13:06)
[2023-07-02 13:18] LABS: B. PARAPERTUSSIS- RESP PCR PAN NOT DETECTED; B. PERTUSSIS- RESP PCR PANEL NOT DETECTED; C. PNEUMONIAE- RESP PCR PANEL NOT DETECTED; CORONAVIRUS 229E-RESP PCR NOT DETECTED; CORONAVIRUS HKU1-RESP PCR NOT DETECTED; CORONAVIRUS NL63-RESP PCR NOT DETECTED; CORONAVIRUS OC43-RESP PCR NOT DETECTED; HUMAN METAPNEUMOVIRUS NOT DETECTED; INFLUENZA A- RESP PCR PANEL NOT DETECTED; INFLUENZA B - RESP PCR PANEL NOT DETECTED; M. PNEUMONIAE- RESP PCR PANEL NOT DETECTED; PARAINFLUENZA VIRUS 1 NOT DETECTED; PARAINFLUENZA VIRUS 2 NOT DETECTED; PARAINFLUENZA VIRUS 3 NOT DETECTED; PARAINFLUENZA VIRUS 4 NOT DETECTED; RHINOVIRUS/ENTEROVIRUS NOT DETECTED; RSV- RESP PCR PANEL NOT DETECTED; SARS-CoV-2 -RESP PCR PANEL NOT DETECTED
[2023-07-02] MEDS ORDERED: SODIUM CHLORIDE 0.9% 1,000 ML IV STA ×2 (13:48)
--- NOTE | 2023-07-02 13:48 | ED Physician Documentation ---
PD HPI ALTERED MENTAL STATUS - Stated complaint Stated Complaint: LOC/SOA - Chief complaint Chief Complaint: Resp - History obtained from History obtained from: EMS - Additional information Additional information: 73-year-old female with history of dementia, HTN, CVA presents by EMS from her long-term facility for decreased mental status x1 day. Per EMS the patient's baseline mental status is that of a "7-year-old", however she is slightly worse today. She also seem to be having shortness of breath so they called 911. Room O2 in ED 95% Patient AO to self only on arrival Review of Systems Unable to obtain: AMS PD PAST MEDICAL HISTORY - Past Medical History Cardiovascular: Hypertension, Arrhythmia Respiratory: Other, Asthma Neuro: Seizure disorder, CVA Endocrine/Autoimmune: None GI: Other FOSTER CARE CASE MANAGER: None : None Psych: None Musculoskeletal: Osteoarthritis Derm: Other - Past Surgical History Past Surgical History: Yes General: Cholecystectomy Ortho: Spine surgery /FOSTER CARE CASE MANAGER: Hysterectomy HEENT: Tonsil/Adenoidectomy - Present Medications Home Medications: Ambulatory Orders Medication Instructions Recorded Confirmed Duloxetine HCl [Cymbalta] 60 mg PO DAILY 08/07/18 07/03/23 Montelukast [Singulair] 10 mg PO QPM 05/17/19 07/03/23 Pantoprazole [Protonix] 40 mg PO DAILY 01/02/22 07/03/23 Clopidogrel [Plavix] 75 mg PO DAILY 10/06/22 07/03/23 Topiramate [Topamax] 50 mg PO QPM 07/03/23 07/03/23 Saccharomyces Boulardii [Florastor] 250 mg PO BID #17 cap 07/09/23 ceFAZolin (2G) [Ancef] 2 gm IV Q8H #17 ea 07/09/23 - Allergies Allergies/Adverse Reactions: Allergies Allergy/AdvReac Type Severity Reaction Status Date / Time Penicillins Allergy Severe Respiratory Verified 10/06/22 09:33 amitriptyline [From Elavil] Allergy Unknown Verified 10/06/22 09:33 aspirin Allergy resp Verified 10/06/22 09:33 diphenhydramine HCl * Allergy Hives Verified 10/06/22 09:33 [From Benadryl] divalproex sodium Allergy Unknown Verified 10/06/22 09:33 egg Allergy Unknown Verified 10/06/22 09:33 iodine Allergy resp Verified 09/24/22 09:17 micafungin sodium * Allergy Anaphylaxis Verified 10/06/22 09:33 [From Mycamine] oxytetracycline Allergy resp Verified 10/06/22 09:33 [From Terramycin] oxytetracycline HCl * Allergy resp Verified 10/06/22 09:33 [From Terramycin] prednisone Allergy Unknown Verified 10/06/22 09:33 valproate sodium * AdvReac Nausea Verified 10/06/22 09:33 [From Depakene] valproic acid [From Depakene] AdvReac Nausea Verified 10/06/22 09:33 - Social History Does the pt smoke?: No Smoking Status: Never smoker Does the pt drink ETOH?: Yes Does the pt have substance abuse?: No - Immunizations Immunizations are current?: Yes - POLST Patient has POLST: No POLST Status: Full Code PD ED PE NORMAL - Vitals Vital signs reviewed: Yes - General General: No acute distress, Other (appears chronically unwell, frail, ill ap pearing) - Cardiac Cardiac: Strong equal pulses, Other (tachycardia) - Abdomen Abdomen: Soft, Non tender, Non distended - Derm Derm: Warm and dry - Neuro Neuro: Other (AOx1) Results - Vitals Vitals: Oxygen O2 Source [With Activity] Room air O2 Source Nasal cannula - Labs Labs: Microbiology 07/02/23 12:07 Blood Culture - Final Blood - Left Arm Staphylococcus Aureus 07/02/23 12:25 Blood Culture - Final Blood - Left Hand Staphylococcus Aureus 07/02/23 13:52 Urine Culture - Final Urine,Catheterized 50-100,000 COLONIES/ML Polymicrobial growth including potential pathogens. This is suggestive of skin or other contamination. 07/02/23 12:07 Blood Culture (PCR) - Final Blood - Left Arm Laboratory Tests 07/02/23 07/02/23 07/02/23 11:50 12:07 12:07 WBC 28.0 H RBC 4.83 Hgb 14.7 Hct 46.1 MCV 95.4 MCH 30.4 MCHC 31.9 L RDW 14.6 Plt Count 237 MPV 11.0 H Neut # (Auto) Not Reportable Lymph # (Auto) Not Reportable Leon # (Auto) Not Reportable Eos # (Auto) Not Reportable Baso # (Auto) Not Reportable Absolute Nucleated RBC Not Reportable Total Counted 100 Band Neuts % (Manual) 7 Abnorm Lymph % (Manual) 0 Nucleated RBC % Not Reportable Neutrophils # (Manual) 24.6 H Lymphocytes # (Manual) 0.6 L Monocytes # (Manual) 2.8 H Eosinophils # (Manual) 0.0 Basophils # (Manual) 0.0 Differential Comment MANUAL DIFFERENTIAL Sodium 139 Potassium 5.0 H Chloride 107 Carbon Dioxide 19 L Anion Gap 13.0 BUN 51 H Creatinine 5.3 H Estimated GFR (MDRD) 8 L Glucose 138 H Lactic Acid Calcium 10.1 Total Bilirubin 0.8 AST 21 ALT 18 Alkaline Phosphatase 85 Total Protein 6.9 Albumin 3.6 Globulin 3.3 Albumin/Globulin Ratio 1.1 Lipase < 10 L Urine Color Urine Clarity Urine pH Ur Specific Sidney Urine Protein Urine Glucose (UA) Urine Ketones Urine Occult Blood Urine Nitrite Urine Bilirubin Urine Urobilinogen Ur Leukocyte Esterase Urine RBC Urine WBC Urine WBC Clumps Ur Squamous Epith Cells Urine Bacteria Ur Microscopic Review Urine Culture Comments Nasal Adenovirus (PCR) NOT DETECTED Nasal B. parapertussis DNA (PCR) NOT DETECTED Nasal Coronavir 229E PCR NOT DETECTED Nasal Coronavir HKU1 PCR NOT DETECTED Nasal Coronavir NL63 PCR NOT DETECTED Nasal Coronavir OC43 PCR NOT DETECTED Nasal Enterovir/Rhinovir PCR NOT DETECTED Nasal Influenza B PCR NOT DETECTED Nasal Influenza A PCR NOT DETECTED Nasal Parainfluen 1 PCR NOT DETECTED Nasal Parainfluen 2 PCR NOT DETECTED Nasal Parainfluen 3 PCR NOT DETECTED Nasal Parainfluen 4 PCR NOT DETECTED Nasal RSV (PCR) NOT DETECTED Nasal B.pertussis DNA PCR NOT DETECTED Nasal C.pneumoniae (PCR) NOT DETECTED Terrence Human Metapneumo PCR NOT DETECTED Nasal M.pneumoniae (PCR) NOT DETECTED Nasal SARS-CoV-2 (PCR) NOT DETECTED 07/02/23 07/02/23 12:07 13:52 WBC RBC Hgb Hct MCV MCH MCHC RDW Plt Count MPV Neut # (Auto) Lymph # (Auto) Leon # (Auto) Eos # (Auto) Baso # (Auto) Absolute Nucleated RBC Total Counted Band Neuts % (Manual) Abnorm Lymph % (Manual) Nucleated RBC % Neutrophils # (Manual) Lymphocytes # (Manual) Monocytes # (Manual) Eosinophils # (Manual) Basophils # (Manual) Differential Comment Sodium Potassium Chloride Carbon Dioxide Anion Gap BUN Creatinine Estimated GFR (MDRD) Glucose Lactic Acid 0.9 Calcium Total Bilirubin AST ALT Alkaline Phosphatase Total Protein Albumin Globulin Albumin/Globulin Ratio Lipase Urine Color YELLOW Urine Clarity CLOUDY Urine pH 7.0 Ur Specific Sidney 1.020 Urine Protein >=300 H Urine Glucose (UA) NEGATIVE Urine Ketones NEGATIVE Urine Occult Blood LARGE H Urine Nitrite NEGATIVE Urine Bilirubin NEGATIVE Urine Urobilinogen 0.2 (NORMAL) Ur Leukocyte Esterase LARGE H Urine RBC 11-25 H Urine WBC >25 H Urine WBC Clumps PRESENT Ur Squamous Epith Cells RARE Squamous Urine Bacteria Moderate H Ur Microscopic Review INDICATED Urine Culture Comments INDICATED Nasal Adenovirus (PCR) Nasal B. parapertussis DNA (PCR) Nasal Coronavir 229E PCR Nasal Coronavir HKU1 PCR Nasal Coronavir NL63 PCR Nasal Coronavir OC43 PCR Nasal Enterovir/Rhinovir PCR Nasal Influenza B PCR Nasal Influenza A PCR Nasal Parainfluen 1 PCR Nasal Parainfluen 2 PCR Nasal Parainfluen 3 PCR Nasal Parainfluen 4 PCR Nasal RSV (PCR) Nasal B.pertussis DNA PCR Nasal C.pneumoniae (PCR) Terrence Human Metapneumo PCR Nasal M.pneumoniae (PCR) Nasal SARS-CoV-2 (PCR) PD Medical Decision Making - ED course Complexity details: reviewed old records, reviewed results, re-evaluated patient, considered differential ED course: Chronically unwell appearing patient presenting for altered mental status, shortness of breath. Tachycardic and tachypneic on arrival, will treat as sepsis with broad-spectrum antibiotics. Laboratory work significant for leukocytosis, acute kidney failure. Patient baseline creatinine 1, date is 5.3 with GFR less than 10. Straight catheterized urine sample purulent with copious sediment. IV fluids running, Rocephin ordered for abx coverage. UA significant for infection. Sent for culture. Patient to be admitted for further treatment. Departure - Departure Disposition: [facility] DC/Xfer Clinical Impression: Sepsis Qualifiers: Sepsis type: sepsis due to unspecified organism Sepsis acute organ dysfunction status: with acute organ dysfunction Severe sepsis acute organ dysfunction type: acute renal failure Acute renal failure type: unspecified Severe sepsis shock status: without septic shock Qualified Code(s): A41.9 - Sepsis, unspecified organism Acute renal failure Qualifiers: Acute renal failure type: unspecified Qualified Code(s): N17.9 - Acute kidney failure, unspecified Urinary tract infection Qualifiers: Urinary tract infection type: acute cystitis Hematuria presence: without hematuria Qualified Code(s): N30.00 - Acute cystitis without hematuria Altered mental status Qualifiers: Altered mental status type: delirium Qualified Code(s): R41.0 - Disorientation, unspecified Condition: Fair Discharge Date/Time: 07/02/23 16:20
[2023-07-02 14:16] LABS: BILIRUBIN,URINE NEGATIVE (NEGATIVE); GLUCOSE, URINE (UA) NEGATIVE (NEGATIVE); KETONES,URINE (UA) NEGATIVE (NEGATIVE); LEUKOCYTE ESTERASE, URINE LARGE (NEGATIVE); NITRITE,URINE NEGATIVE (NEGATIVE); OCCULT BLOOD,URINE LARGE (NEGATIVE); PROTEIN,URINE >=300 mg/dL (NEGATIVE); UROBILINOGEN,URINE 0.2 (NORMAL) E.U./dL (NORMAL)
[2023-07-02 14:17] LABS: CLARITY,URINE CLOUDY (CLEAR)
[2023-07-02 14:26] LABS: BACTERIA,URINE Moderate /HPF (None Seen); SQUAMOUS EPITHELIAL CELL,UR RARE Squamous (<= Few); WBC CLUMPS,URINE PRESENT; WBC,URINE >25 /HPF (0-5)
--- NOTE | 2023-07-02 15:08 | CT Report ---
PROCEDURE: CT brain without contrast INDICATIONS: AMS TECHNIQUE: Helical axial CT of the brain was obtained without contrast and reformatted in multiple p lanes. Radiation dose reduction was achieved using automated exposure control or adjustment of mA and /or kV according to patient size. COMPARISON: None FINDINGS: CSF spaces: Ventricles are appropriate in size and position. No hydrocephalus. Basal cisterns unre markable. Brain: No midline shift. No intracranial masses or hemorrhage. Saab-white matter interface is norm al. Moderate atrophy and white matter chronic ischemic change present. Skull and face: Calvarium and skull base are unremarkable without suspicious lesion. Sinuses: Visualized sinuses and mastoids are clear. IMPRESSION: Moderate atrophy and white matter chronic ischemic change without intracranial hemorrhage or mass eff ect. Reviewed by: Satish Murrell MD on 07/02/2023 2:07 PM MAHENDRA Approved by: Satish Murrell MD on 07/02/2023 2:07 PM AKDEJA Station ID: [id number]
[2023-07-02] MEDS ORDERED: SODIUM CHLORIDE FLUSH 0.9% 10 ML SYRINGE IVP PRN (15:22)
[2023-07-02] MEDS ORDERED: ONDANSETRON ODT 4 MG TABLET TL PRN (15:22)
[2023-07-02] MEDS ORDERED: ONDANSETRON 4 MG/2 ML VIAL IVP PRN (15:22)
--- NOTE | 2023-07-02 15:36 | HISTORY & PHYSICAL EXAMINATION ---
Chief Complaint - Chief Complaint Chief Complaint: ams History of Present Illness - Admitted From Admitted From:: residential SNF - History Obtained From Records Reviewed: Robbie. PCP is Dylon Reynolds History obtained from: Dr. Matute Exam Limitations: severe cognitive deficits - History of Present Illness HPI Comment/Other: This is a 73-year-old female who lives in an assisted living facility. She has baseline severe cognitive deficits.The impression I get in reviewing her clinic chart is that this woman had anxiety. Morbidly obese. Very sedentary. Developed gastroparesis and was taking medications. Those medications may have given her tremors. She was seen by cardiology for chronic sinus tachycardia and a Zio patch was negative for arrhythmias. But she did not follow-up with stress test. Echo was within normal. By late 2020 and into 2021 she was starting to fall more. More memory loss. Son came to visit her in February 2022 and felt that she was "in very poor shape". This is after [employer] Whe[employer], APS has been contacted to trying to keep her safe at home. In September 2022 she was brought in by EMS. She had dysuria but it was notable that she was completely disheveled, urine and feces on bottom and back. APS was filed and patient was discharged home. She then returned 2 weeks later On '[facility]. She stayed in the emergency room until October 12 when placement was found. That is when she went to go live at [facility]. In the past she has had a suprapubic catheter or indwelling catheter but has not had one recently. Last urine culture that was positive was November 2022 where she grew out Staph aureus. She also grew out Staph aureus in September 2022. She had E. coli in December 2021. Aerococcus urinate in May 2019. This morning her group home facility, [facility], called EMS because the patient had a decreased level of consciousness and appeared to be short of breath. EMS noted to be 90% on room air. She was tachypneic. Glucose was 138. Temperature was 36.2, heart rate 108, blood pressure 144/89, respirations 26 and she was 95% on room air. The ER provider evaluated her and found her to be chronically unwell appearing patient with altered mental status. She was tachycardic and tachypneic on arrival. Work-up showed her to have a UTI. A straight cath had copious thick urine drainage that appeared to be lashell pus. She had a large amount of occult blood, white cell clumps, hematuria, pyuria, rare squamous, moderate bacteria. And it is submitted for culture. Her white cell count was 28,000. Her last white cell count in May was 8.4. Baseline creatinine is 0.9 and her creatinine is 5.3 today. She does not have any history of kidney stones. Dr. Matute, the ER provider, and I discussed whether this patient needed to be evaluated for obstruction. But with no history of kidney stones and her past history I have decided to admit her without that evaluation be needed. In reading some of the active orders for this patient at [facility], she is on a 2000 mL fluid restriction per day. Patient provides 800 mils. Nursing dayshift provides 400 mils. Evening shift provides 400 mils. malariologist provides 400 mils. Her fluid restrictions need to be monitored because she is at risk of developing hyponatremia. I did try and call her Moreno and her son Krishna at the home numbers in their patient's chart. No answer either 1. But I was able to leave a voice message on son's machine. History - Past Medical History Cardiovascular: reports: Hypertension, Arrhythmia (09/2015 ECHO EF 65-70%, no valve dz. Lawrence to be NSR w tach bc obese and deconditioned) Respiratory: reports: Asthma, Pneumonia, Other Neuro: reports: CVA, TIA ("14" w leg weakness, tom, heart racing), Seizure disorder (since childhood. taken off meds and recurred so back on med. ), Tremors (for decades, ?from reglan ), Other (muscle wasting, amnesia, cognitive deficits, dementia) Endocrine/Autoimmune: reports: None GI: reports: GERD, Other (gastroparesis dx by Luis Alberto macdonald EGD and emptying study) MEDICAL RESEARCH ASSISTANT: reports: None : reports: Renal insuffiency (CKD 2) Psych: reports: Depression Musculoskeletal: reports: Osteoarthritis Derm: reports: Other (chronic ulcer R heel) MRSA Hx?: No - Past Surgical History General: reports: Cholecystectomy Ortho: reports: Spine surgery /MEDICAL RESEARCH ASSISTANT: reports: Hysterectomy HEENT: reports: Tonsil/Adenoidectomy - Family & Social History Family History Comment/Other: mother: breast cancer, pneumonia, at 91. father: Parkinsons at 86. 4 brothers , no hx other than one accidentally. 2 sons 1 with seizures as well. Living arrangement: halfway Living Situation: Alone Social History Notes: She use to live with her and her son. She gets around using a walker. She denied tobacco, alcohol or illicit drug use - POLST Patient has POLST: No POLST Status: Full Code Meds/Allgy - Home Medications Home Medications: Ambulatory Orders Medication Instructions Recorded Confirmed Multivitamin [Multi-Day Vitamins] 1 each PO DAILY 10/22/13 10/06/22 Topiramate [Topamax] 200 mg PO DAILY 10/22/13 10/06/22 Duloxetine HCl [Cymbalta] 60 mg PO DAILY 08/07/18 10/06/22 Carvedilol 6.25 mg PO BID 05/17/19 10/06/22 Montelukast [Singulair] 10 mg PO QPM 05/17/19 10/06/22 Topiramate [Topamax] 150 mg PO QPM 05/18/19 10/06/22 Pantoprazole [Protonix] 40 mg PO DAILY 01/02/22 10/06/22 Clopidogrel [Plavix] 75 mg PO DAILY 10/06/22 10/06/22 Nitrofurantoin [Macrobid] 1 cap PO BID #20 cap 11/23/22 - Allergies Allergies/Adverse Reactions: Allergies Allergy/AdvReac Type Severity Reaction Status Date / Time Penicillins Allergy Severe Respiratory Verified 10/06/22 09:33 amitriptyline [From Elavil] Allergy Unknown Verified 10/06/22 09:33 aspirin Allergy resp Verified 10/06/22 09:33 diphenhydramine HCl * Allergy Hives Verified 10/06/22 09:33 [From Benadryl] divalproex sodium Allergy Unknown Verified 10/06/22 09:33 egg Allergy Unknown Verified 10/06/22 09:33 iodine Allergy resp Verified 09/24/22 09:17 micafungin sodium * Allergy Anaphylaxis Verified 10/06/22 09:33 [From Mycamine] oxytetracycline Allergy resp Verified 10/06/22 09:33 [From Terramycin] oxytetracycline HCl * Allergy resp Verified 10/06/22 09:33 [From Terramycin] prednisone Allergy Unknown Verified 10/06/22 09:33 valproate sodium * AdvReac Nausea Verified 10/06/22 09:33 [From Depakene] valproic acid [From Depakene] AdvReac Nausea Verified 10/06/22 09:33 Review of Systems - Integumentary Integumentary: reports: Rash (Tendency underneath both breast and armpits) - Other Findings Other Findings: Unable to obtain in this cognitively impaired lady. Prior Level of Functionality: Completely dependent for activities of daily living. Living in a group home facility since October of this year. Not clear if she is getting around with a walker or not anymore. Exam - Vital Signs Reviewed Vital Signs: Yes Vital Signs: Vital Signs x48h Temp Pulse Resp BP Pulse Ox 07/02/23 11:49 36.2 C L 108 H 26 H 144/89 H 95 - Physical Exam General Appearance: positive: No acute distress, Other (5 foot 4 inch, 86.5 kg. Very focused on eating with grunting respirations but grunting from the effort of eating not because of tachypnea. Not really able to answer my questions) Eyes Bilateral: positive: PERRL, EOMI, Other (Questionable acromegaly or just obesity) ENT: positive: No signs of dehydration Neck: positive: No JVD. negative: Stiff neck Respiratory: positive: No respiratory distress, Rhonchi (At bases. Coarse upper airway sounds. No tachypnea or increased respiratory effort). negative: Whe ezes, Rales Cardiovascular: positive: Regular rate & rhythm Abdomen: positive: Non-tender, No organomegaly, Nml bowel sounds Skin: positive: Warm, Dry, Pallor Extremities: positive: Full ROM, Other (Very, very large legs. Nonpitting edema) Neurologic/Psychiatric: positive: CN's nml (2-12), Disoriented to person, Disoriented to place, Disoriented to time. negative: Motor nml (She really cannot follow through on my request. She hears me but stares blankly at me. Able to move legs on the bed, using her hands to bring food to her face.) Conclusion/Plan - Problem List (1) Altered mental status Conclusion/Plan: In this patient, differential diagnosis included stroke, infection, drugs. She had's copious pyuria and we feel that it is a urinary tract infection superimposed on the patient's cognitive deficits. From what she was described in the emergency room and how she is for me on MedSurg, she is already improving. She is not very interactive but she is feeding herself at this time. Plan: Inpatient status Continue treatment with IV fluids and antibiotics for UTI At discharge she will return to her group home facility Qualifiers: Altered mental status type: delirium Qualified Code(s): R41.0 - Disorientation, unspecified (2) UTI (urinary tract infection) Conclusion/Plan: Adjust antibiotics on the basis of culture when they return. Currently on Cipro. I opted not to use Rocephin since this patient has had multiple antibiotics and multiple UTIs in the past Since she also has a new TIANA. Most likely from dehydration, I will get a retroperitoneal ultrasound Qualifiers: Urinary tract infection type: acute cystitis Hematuria presence: without hematuria Qualified Code(s): N30.00 - Acute cystitis without hematuria (3) Acute kidney injury Conclusion/Plan: Chronic kidney disease 2 is noted in her past medical records. This is an acute worsening. Suspect decreased p.o. intake over the last 2 to 3 days. We will see how she responds to IV fluids and check BMP daily (4) Candidiasis Conclusion/Plan: She appears to have a white mouth, Linda under the breast. I have ordered nystatin. (5) Cognitive deficits Conclusion/Plan: In reviewing the chart I am not quite clear where her dementia is from. I cannot tell if she has a neuromuscular disease. Has she had multiple strokes with vascular dementia. She have Alzheimer's dementia. I am hoping that the hospitalist who takes over service tomorrow will be able to speak to the family and get a little bit more insight. - Lab Results Lab results reviewed: Yes Fish Bones: 07/02/23 12:07 07/02/23 12:07 - EKG Results EKG Interpreted Independently: No Core Measures - Anticipated LOS I expect patient to be DC'd or transferred within 96 hours.: Yes - DVT/VTE - Prophylaxis VTE/DVT Prophylaxis med ordered at admit?: Yes
[2023-07-02] MEDS ORDERED: PIPERACILLIN/TAZOBACTAM 3.375 GM in SODIUM CHLORIDE 0.9% MINIBAG 100 ML IV SCH (16:00)
[2023-07-02] MEDS: CIPROFLOXACIN 400 MG/200 ML 400 MG/200 ML BAG IV SCH (17:17)
[2023-07-02] MEDS: SODIUM CHLORIDE 0.9% 1,000 ML IV SCH (17:19)
[2023-07-02] MEDS: SACCHAROMYCES BOULARDII 250 MG CAPSULE PO SCH (17:54)
[2023-07-02] MEDS: SODIUM CHLORIDE FLUSH 0.9% 10 ML SYRINGE IVP SCH (17:54)
[2023-07-03] MEDS: SODIUM CHLORIDE FLUSH 0.9% 10 ML SYRINGE IVP SCH ×3 (00:05→16:13)
[2023-07-03] MEDS: SODIUM CHLORIDE 0.9% 1,000 ML IV SCH ×2 (01:16→11:30)
--- NOTE | 2023-07-03 02:17 | Ultrasound Report ---
PROCEDURE: Retroperitoneal INDICATIONS: new creat of >5 TECHNIQUE: Real-time scanning was performed of the retroperitoneal organs, with image documentation. COMPARISON: CT abdomen pelvis 09/22/2022.. FINDINGS: Kidneys: Right kidney measures 11.6 cm long; left kidney measures approximately 11.3 cm long but vis ualization of the left kidney was limited Right renal cortical thickness is 1.9 cm; left renal cortic al thickness is approximately 1.5 cm. There is mild hydronephrosis bilaterally. Bladder: There is a Boogie catheter within a nondistended urinary bladder. Miscellaneous: No free abdominal fluid. IMPRESSION: 1. Mild bilateral hydronephrosis. Reviewed by: Fran Adame MD on 07/03/2023 2:04 AM PDT Approved by: Fran Adame MD on 07/03/2023 2:04 AM PDT Station ID: [id number]
[2023-07-03] MEDS ORDERED: cefTRIAXone 2 GM in SODIUM CHLORIDE 0.9% MINIBAG 100 ML IV SCH (03:00)
--- NOTE | 2023-07-03 03:04 | PROVIDER PROGRESS NOTE ---
Copy Messenger Note - Copy Messenger Note Copy Messenger Note: RMN paged "Patient admitted for sepsis, UTI. Received call from lab indicating positive blood cultures x2 (gram + cocci). Patient currently receiving Cipro 400 mg every 12 hours. Pt also received Rocephin in ED.. Would you like to order any additional antibiotics for this patient?" BCx positive for Gram positive cocci. has hx of UCx and wound positive MRSA. empiric cover for MRSA bacteremia. recheck BCx in am. day team to consider TTE if not one done recently. Virgen Pritchett DO Internal Medicine [facility] Tele Copy Messenger
[2023-07-03] MEDS: CIPROFLOXACIN 400 MG/200 ML 400 MG/200 ML BAG IV SCH ×2 (03:44→19:34)
[2023-07-03] MEDS ORDERED: VANCOMYCIN INJ 2 GM in SODIUM CHLORIDE 0.9% 500 ML IV ONE ×2 (04:00→05:00)
[2023-07-03 06:05] LABS: BASOPHILS % (AUTO) 0.2 %; HCT - HEMATOCRIT 39.1 % (37.0-47.0); HGB - HEMOGLOBIN 12.1 g/dL (12.0-16.0); LYMPHOCYTES % (AUTO) 1.9 %; MEAN CORPUSCULAR HEMOGLOBIN 30.9 pg (27.0-31.0); MEAN CORPUSCULAR HGB CONC 30.9 g/dL (32.0-36.0); MEAN PLATELET VOLUME 11.1 fL (7.9-10.8); MONOCYTES % (AUTO) 10.4 %; NEUTROPHILS % (AUTO) 86.8 %; PLT - PLATELET COUNT 178 10^3/uL (130-450); RED BLOOD COUNT 3.91 10^6/uL (4.20-5.40); RED CELL DISTRIBUTION WIDTH 14.6 % (12.0-15.0); WHITE BLOOD COUNT 22.1 x10^3/uL (4.8-10.8)
[2023-07-03 06:37] LABS: CALCIUM 8.5 mg/dL (8.5-10.3); POTASSIUM 4.2 mmol/L (3.5-4.5)
[2023-07-03 06:48] LABS: ABNORMAL LYMPHS % (MANUAL) 0 %
[2023-07-03 06:49] LABS: BAND NEUTROPHILS % (MANUAL) 3 %; DIFFERENTIAL COMMENT MANUAL DIFFERENTIAL; LYMPHOCYTES # (MANUAL) 2.2 10^3/uL (1.5-3.5); LYMPHOCYTES % (MANUAL) 10 %; MONOCYTES # (MANUAL) 1.8 10^3/uL (0.0-1.0); NEUTROPHILS # (MANUAL) 18.1 10^3/uL (1.5-6.6); PLATELET ESTIMATE, MANUAL NORMAL (130-450,000) (NORMAL); RBC MORPHOLOGY (MULTIPLE) NORMAL APPEARANCE (NORMAL)
[2023-07-03] MEDS: SACCHAROMYCES BOULARDII 250 MG CAPSULE PO SCH ×2 (09:06→16:17)
[2023-07-03] MEDS: ENOXAPARIN 40 MG/0.4 ML SYRINGE SUBQ SCH (09:06)
--- NOTE | 2023-07-03 09:31 | PROVIDER PROGRESS NOTE ---
Assessment/Plan - Problem List (1) Acute renal failure Qualifiers: Acute renal failure type: unspecified Qualified Code(s): N17.9 - Acute kidney failure, unspecified Assessment/Plan: Creatinine 6, with history of CKD stage II. Oliguria with 12-hour shift only 300 cc urine output. Give IV fluid, Renal dosing all meds Strict intake and output High risk for ESRD (2) Sepsis Qualifiers: Sepsis type: sepsis due to unspecified organism Sepsis acute organ dysfunction status: with acute organ dysfunction Severe sepsis acute organ dysfunction type: acute renal failure Acute renal failure type: unspecified Severe sepsis shock status: without septic shock Qualified Code(s): A41.9 - Sepsis, unspecified organism; R65.20 - Severe sepsis without septic shock; N17.9 - Acute kidney failure, unspecified Assessment/Plan: Leukocytosis, altered mental status On Cipro, Bacteremia Staph aureus, with history of MRSA, received 1 dose of Vanco, Vanco l evel shows 28. Recheck Vanco level tomorrow a.m. may not need MRSA treatment in the next couple of days. Will consider linizolid (3) Hypertension Assessment/Plan: History of hypertension, with Transient accelerated blood pressure Normotensive without intervention Continue monitoring blood pressure In the setting of sepsis, patient has high risk of hypotension. (4) Metabolic acidemia Assessment/Plan: Bicarb of 17. Related to her sepsis. Related to infection,And severe renal function impairment IV fluid, BMP follow-up (5) Bacteremia Assessment/Plan: History of MRSA,. Blood culture obtained on admission reports positive with staph Winter., full reports is pending Received 1 dose of vancomycin, Vanco level 28. No need for another dosing. Follow-up on Vanco level - Current Meds Current Meds: Current Medications Generic Name Dose Route Start Last Admin Trade Name Freq PRN Reason Stop Dose Admin Enoxaparin Sodium 40 mg 07/03/23 09:00 07/03/23 09:06 Enoxaparin 40 Mg/0.4 Ml Syringe SUBQ 40 mg DAILY MUNA Administration Sodium Chloride 1,000 mls @ 100 mls/hr 07/02/23 16:00 07/03/23 01:16 Normal Saline 0.9% IV 07/03/23 21:59 100 mls/hr .Q10H [facility]NA Administration Ciprofloxacin 400 mg in 200 mls @ 200 mls/hr 07/02/23 16:00 07/03/23 04:44 Cipro 400 Mg/200 Ml IV Infused Q12H [facility] Infusion Saccharomyces Boulardii 250 mg 07/02/23 17:00 07/03/23 09:06 Saccharomyces Boulardii 250 Mg Capsule PO 250 mg BIDWM [facility] Administration Sodium Chloride 10 ml 07/02/23 17:00 07/03/23 00:05 Sodium Chloride Flush 0.9% 10 Ml Syringe IVP 10 ml 0100,0900,1700 [facility] Administration Active Medications Acetaminophen (Acetaminophen 325 Mg Tablet) 650 mg PO Q4HR PRN PRN Reason: Pain 1 to 4, or Fever Enoxaparin Sodium (Enoxaparin 40 Mg/0.4 Ml Syringe) 40 mg SUBQ DAILY [facility] Last Admin: 07/03/23 09:06 Dose: 40 mg Sodium Chloride (Normal Saline 0.9%) 1,000 mls @ 100 mls/hr IV .Q10H [facility] Stop: 07/03/23 21:59 Last Infusion: 07/03/23 16:15 Dose: 0 mls/hr Ciprofloxacin (Cipro 400 Mg/200 Ml) 400 mg in 200 mls @ 200 mls/hr IV Q12H [facility] Last Infusion: 07/03/23 04:44 Dose: Infused Multi-Ingredient Ointment (Zinc Oxide 20% Oint 30 Gm Tube) 1 applic TOP PRN PRN PRN Reason: Skin Care Ondansetron HCl (Ondansetron Odt 4 Mg Tablet) 4 mg TL Q6HR PRN PRN Reason: Nausea / Vomiting Ondansetron HCl (Ondansetron 4 Mg/2 Ml Vial) 4 mg IVP Q6HR PRN PRN Reason: Nausea / Vomiting Oxycodone HCl (Oxycodone 5 Mg Tablet) 5 mg PO Q4HR PRN PRN Reason: Pain 5 to 7 Saccharomyces Boulardii (Saccharomyces Boulardii 250 Mg Capsule) 250 mg PO BIDWM [facility] Last Admin: 07/03/23 16:17 Dose: 250 mg Sodium Chloride (Sodium Chloride Flush 0.9% 10 Ml Syringe) 10 ml IVP PRN PRN PRN Reason: NEEDED PER PROVIDER ORDERS Sodium Chloride (Sodium Chloride Flush 0.9% 10 Ml Syringe) 10 ml IVP 0100,0900,1700 [facility] Last Admin: 07/03/23 16:13 Dose: Not Given Duloxetine HCl [Cymbalta] 60 mg PO DAILY 08/07/18 Montelukast [Singulair] 10 mg PO QPM 05/17/19 Topiramate [Topamax] 100 mg PO QPM 05/18/19 Pantoprazole [Protonix] 40 mg PO DAILY 01/02/22 Clopidogrel [Plavix] 75 mg PO DAILY 10/06/22 Topiramate [Topamax] 50 mg PO QPM 07/03/23 - Lab Result Fish Bone Diagrams: 07/03/23 05:52 07/03/23 13:29 - Diagnostic Imaging Results Diagnostic Imaging Results: See rad report - Additional Planning Condition/Complexity: Unstable Plan Discussed with:: Patient, Family, Spouse (Patient and son at bedside. Both patient and family are fairly emotional. Patient younger brother Few days ago) Objective Vital Signs: Vital Signs - 24 hr 07/02/23 07/02/23 07/02/23 11:49 16:15 16:17 Temperature 36.2 C L Heart Rate 108 H 103 H 102 H Heart Rate [ Brachial] Respiratory 26 H 34 H 32 H Rate Blood Pressure 144/89 H 156/89 H 137/76 H Blood Pressure [Right Brachial artery] O2 Saturation 95 95 96 07/02/23 07/02/23 07/02/23 16:18 16:19 16:25 Temperature 36.4 C L Heart Rate 106 H 94 Heart Rate [ 98 Brachial] Respiratory 34 H 38 H 20 Rate Blood Pressure 146/82 H 134/96 H Blood Pressure 151/65 H [Right Brachial artery] O2 Saturation 97 94 100 07/03/23 07/03/23 00:41 08:00 Temperature 37.0 C 36.3 C L Heart Rate Heart Rate [ 104 H 94 Brachial] Respiratory 20 22 Rate Blood Pressure Blood Pressure 148/70 H 172/126 H [Right Brachial artery] O2 Saturation 97 93 Oxygen O2 Source [With Activity] Room air O2 Source Room air I&O (Last 24 Hrs): Intake and Output Totals x24h 07/01/23 07/02/23 07/03/23 23:59 23:59 23:59 Intake Total 3720.000 750 Output Total 8 100 Balance 3712.000 650 - Results Results: Laboratory Results WBC 22.1 x10^3/uL (4.8-10.8) H 07/03/23 05:52 RBC 3.91 10^6/uL (4.20-5.40) L 07/03/23 05:52 Hgb 12.1 g/dL (12.0-16.0) 07/03/23 05:52 Hct 39.1 % (37.0-47.0) 07/03/23 05:52 MCV 100.0 fL (81.0-99.0) H 07/03/23 05:52 MCH 30.9 pg (27.0-31.0) 07/03/23 05:52 MCHC 30.9 g/dL (32.0-36.0) L 07/03/23 05:52 RDW 14.6 % (12.0-15.0) 07/03/23 05:52 Plt Count 178 10^3/uL (130-450) 07/03/23 05:52 MPV 11.1 fL (7.9-10.8) H 07/03/23 05:52 Neut # (Auto) Not Reportable 07/03/23 05:52 Lymph # (Auto) Not Reportable 07/03/23 05:52 [place] # (Auto) Not Reportable 07/03/23 05:52 Eos # (Auto) Not Reportable 07/03/23 05:52 Baso # (Auto) Not Reportable 07/03/23 05:52 Absolute Nucleated RBC Not Reportable 07/03/23 05:52 Total Counted 100 07/03/23 05:52 Band Neuts % (Manual) 3 % (0-10) 07/03/23 05:52 Abnorm Lymph % (Manual) 0 % 07/03/23 05:52 Nucleated RBC % Not Reportable 07/03/23 05:52 Neutrophils # (Manual) 18.1 10^3/uL (1.5-6.6) H 07/03/23 05:52 Lymphocytes # (Manual) 2.2 10^3/uL (1.5-3.5) 07/03/23 05:52 Monocytes # (Manual) 1.8 10^3/uL (0.0-1.0) H 07/03/23 05:52 Eosinophils # (Manual) 0.0 10^3/uL (0-0.7) 07/03/23 05:52 Basophils # (Manual) 0.0 10^3/uL (0-0.1) 07/03/23 05:52 Differential Comment MANUAL DIFFERENTIAL 07/03/23 05:52 Platelet Estimate NORMAL (130-450,000) (NORMAL) 07/03/23 05:52 RBC Morph Micro Appear NORMAL APPEARANCE (NORMAL) 07/03/23 05:52 Sodium 139 mmol/L (135-145) 07/03/23 05:52 Potassium 4.2 mmol/L (3.5-4.5) 07/03/23 05:52 Chloride 111 mmol/L (101-111) 07/03/23 05:52 Carbon Dioxide 17 mmol/L (21-32) L 07/03/23 05:52 Anion Gap 11.0 (6-13) 07/03/23 05:52 BUN 59 mg/dL (6-20) H 07/03/23 05:52 Creatinine 6.0 mg/dL (0.6-1.3) H 07/03/23 05:52 Estimated GFR (MDRD) 7 (>89) L 07/03/23 05:52 Glucose 109 mg/dL (74-104) H 07/03/23 05:52 Lactic Acid 0.9 mmol/L (0.5-2.2) 07/02/23 12:07 Calcium 8.5 mg/dL (8.5-10.3) 07/03/23 05:52 Total Bilirubin 0.8 mg/dL (0.2-1.0) 07/02/23 12:07 AST 21 IU/L (10-42) 07/02/23 12:07 ALT 18 IU/L (10-60) 07/02/23 12:07 Alkaline Phosphatase 85 IU/L (42-121) 07/02/23 12:07 Total Protein 6.9 g/dL (6.4-8.9) 07/02/23 12:07 Albumin 3.6 g/dL (3.2-5.5) 07/02/23 12:07 Globulin 3.3 g/dL (2.1-4.2) 07/02/23 12:07 Albumin/Globulin Ratio 1.1 (1.0-2.2) 07/02/23 12:07 Lipase < 10 U/L (11-82) L 07/02/23 12:07 Urine Color YELLOW 07/02/23 13:52 Urine Clarity CLOUDY (CLEAR) 07/02/23 13:52 Urine pH 7.0 PH (5.0-7.5) 07/02/23 13:52 Ur Specific [place] 1.020 (1.002-1.030) 07/02/23 13:52 Urine Protein >=300 mg/dL (NEGATIVE) H 07/02/23 13:52 Urine Glucose (UA) NEGATIVE mg/dL (NEGATIVE) 07/02/23 13:52 Urine Ketones NEGATIVE mg/dL (NEGATIVE) 07/02/23 13:52 Urine Occult Blood LARGE (NEGATIVE) H 07/02/23 13:52 Urine Nitrite NEGATIVE (NEGATIVE) 07/02/23 13:52 Urine Bilirubin NEGATIVE (NEGATIVE) 07/02/23 13:52 Urine Urobilinogen 0.2 (NORMAL) E.U./dL (NORMAL) 07/02/23 13:52 Ur Leukocyte Esterase LARGE (NEGATIVE) H 07/02/23 13:52 Urine RBC 11-25 /HPF (0-5) H 07/02/23 13:52 Urine WBC >25 /HPF (0-5) H 07/02/23 13:52 Urine WBC Clumps PRESENT 07/02/23 13:52 Ur Squamous Epith Cells RARE Squamous (<= Few) 07/02/23 13:52 Urine Bacteria Moderate /HPF (None Seen) H 07/02/23 13:52 Ur Microscopic Review INDICATED 07/02/23 13:52 Urine Culture Comments INDICATED 07/02/23 13:52 Nasal Adenovirus (PCR) NOT DETECTED 07/02/23 11:50 Nasal B. parapertussis DNA (PCR) NOT DETECTED 07/02/23 11:50 Nasal Coronavir 229E PCR NOT DETECTED 07/02/23 11:50 Nasal Coronavir HKU1 PCR NOT DETECTED 07/02/23 11:50 Nasal Coronavir NL63 PCR NOT DETECTED 07/02/23 11:50 Nasal Coronavir OC43 PCR NOT DETECTED 07/02/23 11:50 Nasal Enterovir/Rhinovir PCR NOT DETECTED 07/02/23 11:50 Nasal Influenza B PCR NOT DETECTED 07/02/23 11:50 Nasal Influenza A PCR NOT DETECTED 07/02/23 11:50 Nasal Parainfluen 1 PCR NOT DETECTED 07/02/23 11:50 Nasal Parainfluen 2 PCR NOT DETECTED 07/02/23 11:50 Nasal Parainfluen 3 PCR NOT DETECTED 07/02/23 11:50 Nasal Parainfluen 4 PCR NOT DETECTED 07/02/23 11:50 Nasal RSV (PCR) NOT DETECTED 07/02/23 11:50 Nasal B.pertussis DNA PCR NOT DETECTED 07/02/23 11:50 Nasal C.pneumoniae (PCR) NOT DETECTED 07/02/23 11:50 [place] Human Metapneumo PCR NOT DETECTED 07/02/23 11:50 Nasal M.pneumoniae (PCR) NOT DETECTED 07/02/23 11:50 Nasal SARS-CoV-2 (PCR) NOT DETECTED 07/02/23 11:50 ABX Reporting Has patient been on IV antibiotics over the past 48 hours?: Yes
--- NOTE | 2023-07-03 11:23 | PHARMACY PROGRESS NOTE ---
- Best Possible Medication History Admit Date and Time: 07/02/23 1523 Processed by: Pharmacy Medication History completed: Yes Patient Interview: Pt unable to participate Secondary Source(s): Pharmacy records, Insurance records As the person ultimately responsible for medication therapy, providers are able to order a medication from an existing home medication list in [facility] via the "Reconcile Routine" prior to Confirmation of that medication by application support manager. Such practice is discouraged except when the physician, in their clinical judgment, deems that a medical need exists for a medication without regard to previous use.
[2023-07-03 14:25] LABS: BUN - BLOOD UREA NITROGEN 61 mg/dL (6-20); CALCIUM 8.7 mg/dL (8.5-10.3); CARBON DIOXIDE - CO2 17 mmol/L (21-32); CHLORIDE 110 mmol/L (101-111); CREATININE 5.6 mg/dL (0.6-1.3); GFR - MDRD 7 (>89); GLUCOSE 96 mg/dL (74-104); POTASSIUM 3.9 mmol/L (3.5-4.5); SODIUM 140 mmol/L (135-145); VANCOMYCIN,RANDOM 28.6 ug/mL
[2023-07-03] MEDS: ZINC OXIDE 20% OINT 30 GM TUBE TOP PRN (20:37)
[2023-07-04] MEDS: SODIUM CHLORIDE FLUSH 0.9% 10 ML SYRINGE IVP SCH ×3 (00:10→15:40)
[2023-07-04] MEDS: CIPROFLOXACIN 400 MG/200 ML 400 MG/200 ML BAG IV SCH ×2 (03:34→17:19)
[2023-07-04 05:28] LABS: BASOPHILS % (AUTO) 0.3 %; EOSINOPHILS % (AUTO) 1.3 %; HCT - HEMATOCRIT 38.5 % (37.0-47.0); HGB - HEMOGLOBIN 11.9 g/dL (12.0-16.0); LYMPHOCYTES % (AUTO) 3.4 %; MEAN CORPUSCULAR HEMOGLOBIN 30.5 pg (27.0-31.0); MEAN CORPUSCULAR HGB CONC 30.9 g/dL (32.0-36.0); MEAN CORPUSCULAR VOLUME 98.7 fL (81.0-99.0); MEAN PLATELET VOLUME 10.9 fL (7.9-10.8); MONOCYTES % (AUTO) 12.9 %; NEUTROPHILS % (AUTO) 81.3 %; PLT - PLATELET COUNT 183 10^3/uL (130-450); RED CELL DISTRIBUTION WIDTH 14.8 % (12.0-15.0); WHITE BLOOD COUNT 15.1 x10^3/uL (4.8-10.8)
[2023-07-04 05:35] LABS: ABNORMAL LYMPHS % (MANUAL) 0 %
[2023-07-04 05:37] LABS: VANCOMYCIN,RANDOM 20.5 ug/mL
[2023-07-04 05:57] LABS: CALCIUM 8.7 mg/dL (8.5-10.3); CREATININE 5.2 mg/dL (0.6-1.3)
[2023-07-04 05:58] LABS: BAND NEUTROPHILS % (MANUAL) 3 %; DIFFERENTIAL COMMENT MANUAL DIFFERENTIAL; LYMPHOCYTES # (MANUAL) 0.9 10^3/uL (1.5-3.5); LYMPHOCYTES % (MANUAL) 6 %; MONOCYTES # (MANUAL) 2.3 10^3/uL (0.0-1.0); NEUTROPHILS # (MANUAL) 11.9 10^3/uL (1.5-6.6); PLATELET ESTIMATE, MANUAL NORMAL (130-450,000) (NORMAL); RBC MORPHOLOGY (MULTIPLE) NORMAL APPEARANCE (NORMAL)
[2023-07-04] MEDS: SACCHAROMYCES BOULARDII 250 MG CAPSULE PO SCH ×2 (08:38→17:19)
[2023-07-04] MEDS: ENOXAPARIN 40 MG/0.4 ML SYRINGE SUBQ SCH (08:38)
[2023-07-04 08:41] LABS: MAGNESIUM 1.7 mg/dL (1.7-2.3); PHOSPHORUS 4.8 mg/dL (2.5-5.0)
--- NOTE | 2023-07-04 09:13 | PROVIDER PROGRESS NOTE ---
Assessment/Plan - Problem List (1) Acute renal failure Qualifiers: Acute renal failure type: unspecified Qualified Code(s): N17.9 - Acute kidney failure, unspecified Assessment/Plan: Slightly improved, creatinine 5.2 today Continue give IV fluid, monitoring renal function (2) Sepsis Qualifiers: Sepsis type: sepsis due to unspecified organism Sepsis acute organ dysfunction status: with acute organ dysfunction Severe sepsis acute organ dysfunction type: acute renal failure Acute renal failure type: unspecified Severe sepsis shock status: without septic shock Qualified Code(s): A41.9 - Sepsis, unspecified organism; R65.20 - Severe sepsis without septic shock; N17.9 - Acute kidney failure, unspecified Assessment/Plan: Improving, patient feels better, leukocytosis is improving. Repeat blood culture obtained Patient still continue on Cipro. Vanco level 20.5 today in the morning, no indication for further dose at this point. , Check Vanco level tomorrow a.m. lab (3) Hypertension Assessment/Plan: BP is better controlled, amlodipine and metoprolol is given (4) Metabolic acidemia Assessment/Plan: Slightly improved, AG11, bicarb 18 If it continue have low bicarb and poor renal function We will consider to give oral bicarb (5) Bacteremia Assessment/Plan: Blood culture shows staph on rare Repeat culture obtained Vanco level 20.5, no indication for another dose for the next couple of days Patient will need PICC line placement once bacteremia resolved, need 14 days of Linizalid after clearance of bacteremia - Current Meds Current Meds: Current Medications Generic Name Dose Route Start Last Admin Trade Name Freq PRN Reason Stop Dose Admin Enoxaparin Sodium 40 mg 07/03/23 09:00 07/04/23 08:38 Enoxaparin 40 Mg/0.4 Ml Syringe SUBQ 40 mg DAILY [facility] Administration Ciprofloxacin 400 mg in 200 mls @ 200 mls/hr 07/02/23 16:00 07/04/23 04:43 Cipro 400 Mg/200 Ml IV Infused Q12H [facility] Infusion Multi-Ingredient Ointment 1 applic 07/03/23 18:17 07/03/23 20:37 Zinc Oxide 20% Oint 30 Gm Tube TOP 1 applic PRN PRN Administration Skin Care Saccharomyces Boulardii 250 mg 07/02/23 17:00 07/04/23 08:38 Saccharomyces Boulardii 250 Mg Capsule PO 250 mg BIDWM [facility] Administration Sodium Chloride 10 ml 07/02/23 17:00 07/04/23 08:40 Sodium Chloride Flush 0.9% 10 Ml Syringe IVP 10 ml 0100,0900,1700 [facility] Administration - Lab Result Fish Bone Diagrams: 07/04/23 05:19 07/04/23 05:19 - Additional Planning My Orders: My Active Orders 07/03/23 14:12 Daily Weight [RC] 59907/03/23 Dinner DIET [Hepatic/Renal Diet] [DIET] 07/04/23 10:00 NS 0.9% @ 125 mls/hr Sodium Chloride 0.9% [Normal Saline 0.9%] 1,000 ml IV 125 mls/hr Subjective - Subjective Patient Reports: Feeling Better (Appetite is improved, Denies abdominal pain, no cough no chest pain no other new discomforts) Objective Vital Signs: Vital Signs - 24 hr 07/03/23 07/03/23 07/04/23 15:42 23:59 00:31 Temperature 36.4 C L 36.7 C Heart Rate [ 88 88 Brachial] Respiratory 22 30 H 24 Rate Blood Pressure 148/79 H [Left Brachial artery] Blood Pressure 119/77 [Right Brachial artery] O2 Saturation 95 98 07/04/23 07:24 Temperature 37 C Heart Rate [ 91 Brachial] Respiratory 20 Rate Blood Pressure [Left Brachial artery] Blood Pressure 130/72 [Right Brachial artery] O2 Saturation 97 Oxygen O2 Source [With Activity] Room air O2 Source Room air I&O (Last 24 Hrs): Intake and Output Totals x24h 07/02/23 07/03/23 07/04/23 23:59 23:59 23:59 Intake Total 3720.000 2675 985 Output Total 8 525 400 Balance 3712.000 2150 585 General: Alert, No acute distress Neck: Supple, No JVD Neuro: Alert, Non Focal Cardiovascular: Regular rate Respiratory: No respiratory distress Abdomen: Soft, No tenderness Rectal: Non-Tender Extremities: No edema - Results Results: Laboratory Results WBC 15.1 x10^3/uL (4.8-10.8) H 07/04/23 05:19 RBC 3.90 10^6/uL (4.20-5.40) L 07/04/23 05:19 Hgb 11.9 g/dL (12.0-16.0) L 07/04/23 05:19 Hct 38.5 % (37.0-47.0) 07/04/23 05:19 MCV 98.7 fL (81.0-99.0) 07/04/23 05:19 MCH 30.5 pg (27.0-31.0) 07/04/23 05:19 MCHC 30.9 g/dL (32.0-36.0) L 07/04/23 05:19 RDW 14.8 % (12.0-15.0) 07/04/23 05:19 Plt Count 183 10^3/uL (130-450) 07/04/23 05:19 MPV 10.9 fL (7.9-10.8) H 07/04/23 05:19 Neut # (Auto) Not Reportable 07/04/23 05:19 Lymph # (Auto) Not Reportable 07/04/23 05:19 [place] # (Auto) Not Reportable 07/04/23 05:19 Eos # (Auto) Not Reportable 07/04/23 05:19 Baso # (Auto) Not Reportable 07/04/23 05:19 Absolute Nucleated RBC Not Reportable 07/04/23 05:19 Total Counted 100 07/04/23 05:19 Band Neuts % (Manual) 3 % (0-10) 07/04/23 05:19 Abnorm Lymph % (Manual) 0 % 07/04/23 05:19 Nucleated RBC % Not Reportable 07/04/23 05:19 Neutrophils # (Manual) 11.9 10^3/uL (1.5-6.6) H 07/04/23 05:19 Lymphocytes # (Manual) 0.9 10^3/uL (1.5-3.5) L 07/04/23 05:19 Monocytes # (Manual) 2.3 10^3/uL (0.0-1.0) H 07/04/23 05:19 Eosinophils # (Manual) 0.0 10^3/uL (0-0.7) 07/04/23 05:19 Basophils # (Manual) 0.0 10^3/uL (0-0.1) 07/04/23 05:19 Differential Comment MANUAL DIFFERENTIAL 07/04/23 05:19 Platelet Estimate NORMAL (130-450,000) (NORMAL) 07/04/23 05:19 RBC Morph Micro Appear NORMAL APPEARANCE (NORMAL) 07/04/23 05:19 Sodium 142 mmol/L (135-145) 07/04/23 05:19 Potassium 4.0 mmol/L (3.5-4.5) 07/04/23 05:19 Chloride 113 mmol/L (101-111) H 07/04/23 05:19 Carbon Dioxide 18 mmol/L (21-32) L 07/04/23 05:19 Anion Gap 11.0 (6-13) 07/04/23 05:19 BUN 64 mg/dL (6-20) H 07/04/23 05:19 Creatinine 5.2 mg/dL (0.6-1.3) H 07/04/23 05:19 Estimated GFR (MDRD) 8 (>89) L 07/04/23 05:19 Glucose 86 mg/dL (74-104) 07/04/23 05:19 Lactic Acid 0.9 mmol/L (0.5-2.2) 07/02/23 12:07 Calcium 8.7 mg/dL (8.5-10.3) 07/04/23 05:19 Phosphorus 4.8 mg/dL (2.5-5.0) 07/04/23 05:19 Magnesium 1.7 mg/dL (1.7-2.3) 07/04/23 05:19 Total Bilirubin 0.8 mg/dL (0.2-1.0) 07/02/23 12:07 AST 21 IU/L (10-42) 07/02/23 12:07 ALT 18 IU/L (10-60) 07/02/23 12:07 Alkaline Phosphatase 85 IU/L (42-121) 07/02/23 12:07 Total Protein 6.9 g/dL (6.4-8.9) 07/02/23 12:07 Albumin 3.6 g/dL (3.2-5.5) 07/02/23 12:07 Globulin 3.3 g/dL (2.1-4.2) 07/02/23 12:07 Albumin/Globulin Ratio 1.1 (1.0-2.2) 07/02/23 12:07 Lipase < 10 U/L (11-82) L 07/02/23 12:07 Urine Color YELLOW 07/02/23 13:52 Urine Clarity CLOUDY (CLEAR) 07/02/23 13:52 Urine pH 7.0 PH (5.0-7.5) 07/02/23 13:52 Ur Specific [place] 1.020 (1.002-1.030) 07/02/23 13:52 Urine Protein >=300 mg/dL (NEGATIVE) H 07/02/23 13:52 Urine Glucose (UA) NEGATIVE mg/dL (NEGATIVE) 07/02/23 13:52 Urine Ketones NEGATIVE mg/dL (NEGATIVE) 07/02/23 13:52 Urine Occult Blood LARGE (NEGATIVE) H 07/02/23 13:52 Urine Nitrite NEGATIVE (NEGATIVE) 07/02/23 13:52 Urine Bilirubin NEGATIVE (NEGATIVE) 07/02/23 13:52 Urine Urobilinogen 0.2 (NORMAL) E.U./dL (NORMAL) 07/02/23 13:52 Ur Leukocyte Esterase LARGE (NEGATIVE) H 07/02/23 13:52 Urine RBC 11-25 /HPF (0-5) H 07/02/23 13:52 Urine WBC >25 /HPF (0-5) H 07/02/23 13:52 Urine WBC Clumps PRESENT 07/02/23 13:52 Ur Squamous Epith Cells RARE Squamous (<= Few) 07/02/23 13:52 Urine Bacteria Moderate /HPF (None Seen) H 07/02/23 13:52 Ur Microscopic Review INDICATED 07/02/23 13:52 Urine Culture Comments INDICATED 07/02/23 13:52 Nasal Adenovirus (PCR) NOT DETECTED 07/02/23 11:50 Nasal B. parapertussis DNA (PCR) NOT DETECTED 07/02/23 11:50 Nasal Coronavir 229E PCR NOT DETECTED 07/02/23 11:50 Nasal Coronavir HKU1 PCR NOT DETECTED 07/02/23 11:50 Nasal Coronavir NL63 PCR NOT DETECTED 07/02/23 11:50 Nasal Coronavir OC43 PCR NOT DETECTED 07/02/23 11:50 Nasal Enterovir/Rhinovir PCR NOT DETECTED 07/02/23 11:50 Nasal Influenza B PCR NOT DETECTED 07/02/23 11:50 Nasal Influenza A PCR NOT DETECTED 07/02/23 11:50 Nasal Parainfluen 1 PCR NOT DETECTED 07/02/23 11:50 Nasal Parainfluen 2 PCR NOT DETECTED 07/02/23 11:50 Nasal Parainfluen 3 PCR NOT DETECTED 07/02/23 11:50 Nasal Parainfluen 4 PCR NOT DETECTED 07/02/23 11:50 Nasal RSV (PCR) NOT DETECTED 07/02/23 11:50 Nasal B.pertussis DNA PCR NOT DETECTED 07/02/23 11:50 Nasal C.pneumoniae (PCR) NOT DETECTED 07/02/23 11:50 [place] Human Metapneumo PCR NOT DETECTED 07/02/23 11:50 Nasal M.pneumoniae (PCR) NOT DETECTED 07/02/23 11:50 Nasal SARS-CoV-2 (PCR) NOT DETECTED 07/02/23 11:50 Last Dose Date 07/03/2023 07/04/23 05:19 Last Dose Time 70607/04/23 05:19 Random Vancomycin 20.5 ug/mL 07/04/23 05:19 ABX Reporting Has patient been on IV antibiotics over the past 48 hours?: Yes Current Medications - Current Medications Current Medications: Active Medications Generic Name Dose Route Start Last Admin Trade Name Freq PRN Reason Stop Dose Admin Acetaminophen 650 mg 07/02/23 15:22 Acetaminophen 325 Mg Tablet PO Q4HR PRN Pain 1 to 4, or Fever Enoxaparin Sodium 30 mg 07/05/23 09:00 Enoxaparin 30 Mg/0.3 Ml Syringe SUBQ DAILY [facility] Ciprofloxacin 400 mg in 200 mls @ 200 mls/hr 07/02/23 16:00 07/04/23 18:19 Cipro 400 Mg/200 Ml IV Infused Q12H [facility] Infusion Sodium Chloride 1,000 mls @ 125 mls/hr 07/04/23 10:00 07/04/23 18:58 Normal Saline 0.9% IV 07/05/23 01:59 125 mls/hr .Q8H [facility] Administration Multi-Ingredient Ointment 1 applic 07/03/23 18:17 07/03/23 20:37 Zinc Oxide 20% Oint 30 Gm Tube TOP 1 applic PRN PRN Administration Skin Care Ondansetron HCl 4 mg 07/02/23 15:22 Ondansetron Odt 4 Mg Tablet TL Q6HR PRN Nausea / Vomiting Ondansetron HCl 4 mg 07/02/23 15:22 Ondansetron 4 Mg/2 Ml Vial IVP Q6HR PRN Nausea / Vomiting Oxycodone HCl 5 mg 07/02/23 15:22 07/04/23 09:20 Oxycodone 5 Mg Tablet PO 5 mg Q4HR PRN Administration Pain 5 to 7 Saccharomyces Boulardii 250 mg 07/02/23 17:00 07/04/23 17:19 Saccharomyces Boulardii 250 Mg Capsule PO 250 mg BIDWM [facility] Administration Sodium Chloride 10 ml 07/02/23 15:22 Sodium Chloride Flush 0.9% 10 Ml Syringe IVP PRN PRN NEEDED PER PROVIDER ORDERS Sodium Chloride 10 ml 07/02/23 17:00 07/04/23 15:40 Sodium Chloride Flush 0.9% 10 Ml Syringe IVP Not Given 0100,0900,1700 [facility] Duloxetine HCl [Cymbalta] 60 mg PO DAILY 08/07/18 Montelukast [Singulair] 10 mg PO QPM 05/17/19 Topiramate [Topamax] 100 mg PO QPM 05/18/19 Pantoprazole [Protonix] 40 mg PO DAILY 01/02/22 Clopidogrel [Plavix] 75 mg PO DAILY 10/06/22 Topiramate [Topamax] 50 mg PO QPM 07/03/23
[2023-07-04] MEDS: oxyCODONE 5 MG TABLET PO PRN (09:20)
[2023-07-04] MEDS: SODIUM CHLORIDE 0.9% 1,000 ML IV SCH ×2 (09:25→18:58)
[2023-07-04] MEDS ORDERED: SODIUM CHLORIDE 0.9% 1,000 ML ONE (09:25)
[2023-07-05] MEDS: SODIUM CHLORIDE FLUSH 0.9% 10 ML SYRINGE IVP SCH ×4 (00:29→23:54)
[2023-07-05] MEDS: CIPROFLOXACIN 400 MG/200 ML 400 MG/200 ML BAG IV SCH (03:26)
[2023-07-05 05:31] LABS: BASOPHILS % (AUTO) 0.2 %; EOSINOPHILS # (AUTO) 0.2 10^3/uL (0.0-0.7); HCT - HEMATOCRIT 38.3 % (37.0-47.0); HGB - HEMOGLOBIN 12.2 g/dL (12.0-16.0); LYMPHOCYTES # (AUTO) 0.6 10^3/uL (1.5-3.5); LYMPHOCYTES % (AUTO) 4.8 %; MEAN CORPUSCULAR HEMOGLOBIN 31.4 pg (27.0-31.0); MEAN CORPUSCULAR HGB CONC 31.9 g/dL (32.0-36.0); MEAN CORPUSCULAR VOLUME 98.5 fL (81.0-99.0); MEAN PLATELET VOLUME 10.6 fL (7.9-10.8); MONOCYTES # (AUTO) 1.5 10^3/uL (0.0-1.0); MONOCYTES % (AUTO) 12.9 %; NEUTROPHILS % (AUTO) 79.3 %; PLT - PLATELET COUNT 185 10^3/uL (130-450); RED BLOOD COUNT 3.89 10^6/uL (4.20-5.40); RED CELL DISTRIBUTION WIDTH 14.8 % (12.0-15.0); WHITE BLOOD COUNT 11.4 x10^3/uL (4.8-10.8)
[2023-07-05 05:41] LABS: CALCIUM 8.6 mg/dL (8.5-10.3); CREATININE 3.8 mg/dL (0.6-1.3); POTASSIUM 3.8 mmol/L (3.5-4.5)
[2023-07-05] MEDS: ENOXAPARIN 30 MG/0.3 ML SYRINGE SUBQ SCH (08:27)
[2023-07-05] MEDS: SACCHAROMYCES BOULARDII 250 MG CAPSULE PO SCH ×2 (08:27→16:15)
[2023-07-05] MEDS: oxyCODONE 5 MG TABLET PO PRN ×2 (08:30→14:32)
[2023-07-05] MEDS: ceFAZolin (2G) 2 GM in SODIUM CHLORIDE 0.9% MINIBAG 100 ML IV SCH ×2 (14:18→20:39)
[2023-07-05] MEDS: TOPIRAMATE 25 MG TABLET PO SCH (16:16)
[2023-07-05] MEDS: ACETAMINOPHEN 325 MG TABLET PO PRN (17:44)
--- NOTE | 2023-07-05 21:10 | PROVIDER PROGRESS NOTE ---
Assessment/Plan - Problem List (1) Acute renal failure Qualifiers: Acute renal failure type: unspecified Qualified Code(s): N17.9 - Acute kidney failure, unspecified Assessment/Plan: Improving, creatinine 3 Continue IV fluid Monitoring renal function Strict internal (2) Sepsis Qualifiers: Sepsis type: sepsis due to unspecified organism Sepsis acute organ dysfunction status: with acute organ dysfunction Severe sepsis acute organ dysfunction type: acute renal failure Acute renal failure type: unspecified Severe sepsis shock status: without septic shock Qualified Code(s): A41.9 - Sepsis, unspecified organism; R65.20 - Severe sepsis without septic shock; N17.9 - Acute kidney failure, unspecified Assessment/Plan: Improving, bacteremia of MSSA confirmed with blood culture Switch Cipro to cefazolin Check Vanco level tomorrow a.m. (3) Hypertension Assessment/Plan: Continue current BP meds (4) Metabolic acidemia Assessment/Plan: Improving, with improved renal function and better controlled sepsis (5) Bacteremia Assessment/Plan: Blood culture reports it is a pansensitive MSSA Switched antibiotic to IV cefazolin Await for repeat blood culture, if negative for 48 hours, PICC line can be placed. And continue 14 days of antibiotics after clearance of bacteremia - Current Meds Current Meds: Current Medications Generic Name Dose Route Start Last Admin Trade Name Freq PRN Reason Stop Dose Admin Acetaminophen 650 mg 07/02/23 15:22 07/05/23 17:44 Acetaminophen 325 Mg Tablet PO 650 mg Q4HR PRN Administration Pain 1 to 4, or Fever Enoxaparin Sodium 30 mg 07/05/23 09:00 07/05/23 08:27 Enoxaparin 30 Mg/0.3 Ml Syringe SUBQ 30 mg DAILY MUNA Administration Cefazolin Sodium 2 gm/ Sodium 100 mls @ 200 mls/hr 07/05/23 13:22 07/05/23 20:39 Chloride IV 200 mls/hr Q8H MUNA Administration Multi-Ingredient Ointment 1 applic 07/03/23 18:17 07/03/23 20:37 Zinc Oxide 20% Oint 30 Gm Tube TOP 1 applic PRN PRN Administration Skin Care Oxycodone HCl 5 mg 07/02/23 15:22 07/05/23 14:32 Oxycodone 5 Mg Tablet PO 5 mg Q4HR PRN Administration Pain 5 to 7 Saccharomyces Boulardii 250 mg 07/02/23 17:00 07/05/23 16:15 Saccharomyces Boulardii 250 Mg Capsule PO 250 mg BIDWM MUNA Administration Sodium Chloride 10 ml 07/02/23 17:00 07/05/23 16:16 Sodium Chloride Flush 0.9% 10 Ml Syringe IVP 10 ml 0100,0900,1700 MUNA Administration Topiramate 50 mg 07/05/23 17:00 07/05/23 16:16 Topiramate 25 Mg Tablet PO 50 mg QDDINNER MUNA Administration - Lab Result Fish Bone Diagrams: 07/05/23 05:21 07/05/23 05:21 - Additional Planning My Orders: My Active Orders 07/05/23 13:22 ceFAZolin (2G) [Ancef] 2 gm Sodium Chloride 0.9% Minibag [Normal Saline 0.9% Minibag] 100 ml IV Q8H 07/05/23 Dinner Soft Mechanical Diet [DIET] 07/05/23 17:00 Topiramate [Topamax] 50 mg PO QDDINNER Subjective - Subjective Patient Reports: Feeling Better (Overall feels better, patient appetite has improved, appears comfortable.) Objective Vital Signs: Vital Signs - 24 hr 07/04/23 07/05/23 07/05/23 23:42 07:27 16:00 Temperature 36.5 C 36.4 C L 36.3 C L Heart Rate [ 85 87 79 Brachial] Respiratory 20 18 18 Rate Blood Pressure 149/85 H 141/66 H 137/87 H [Left Brachial artery] Blood Pressure 137/87 H [Right Brachial artery] O2 Saturation 98 99 99 07/05/23 16:19 Temperature 36.3 C L Heart Rate [ 89 Brachial] Respiratory 16 Rate Blood Pressure 164/64 H [Left Brachial artery] Blood Pressure [Right Brachial artery] O2 Saturation 88 L Oxygen O2 Source [With Activity] Room air O2 Source Room air I&O (Last 24 Hrs): Intake and Output Totals x24h 07/03/23 07/04/23 07/05/23 23:59 23:59 23:59 Intake Total 2675 2545.0 2150 Output Total 525 1220 1000 Balance 2150 1325.0 1150 General: Alert, Oriented x3 HEENT: PERRLA, EOMI Neck: Supple Neuro: Non Focal, CN 2-12 Grossly Intact Abdomen: Soft - Results Results: Laboratory Results WBC 11.4 x10^3/uL (4.8-10.8) H 07/05/23 05:21 RBC 3.89 10^6/uL (4.20-5.40) L 07/05/23 05:21 Hgb 12.2 g/dL (12.0-16.0) 07/05/23 05:21 Hct 38.3 % (37.0-47.0) 07/05/23 05:21 MCV 98.5 fL (81.0-99.0) 07/05/23 05:21 MCH 31.4 pg (27.0-31.0) H 07/05/23 05:21 MCHC 31.9 g/dL (32.0-36.0) L 07/05/23 05:21 RDW 14.8 % (12.0-15.0) 07/05/23 05:21 Plt Count 185 10^3/uL (130-450) 07/05/23 05:21 MPV 10.6 fL (7.9-10.8) 07/05/23 05:21 Neut # (Auto) 9.0 10^3/uL (1.5-6.6) H 07/05/23 05:21 Lymph # (Auto) 0.6 10^3/uL (1.5-3.5) L 07/05/23 05:21 [place] # (Auto) 1.5 10^3/uL (0.0-1.0) H 07/05/23 05:21 Eos # (Auto) 0.2 10^3/uL (0.0-0.7) 07/05/23 05:21 Baso # (Auto) 0.0 10^3/uL (0.0-0.1) 07/05/23 05:21 Absolute Nucleated RBC 0.00 x10^3/uL 07/05/23 05:21 Total Counted 100 07/04/23 05:19 Band Neuts % (Manual) 3 % (0-10) 07/04/23 05:19 Abnorm Lymph % (Manual) 0 % 07/04/23 05:19 Nucleated RBC % 0.0 /100WBC 07/05/23 05:21 Neutrophils # (Manual) 11.9 10^3/uL (1.5-6.6) H 07/04/23 05:19 Lymphocytes # (Manual) 0.9 10^3/uL (1.5-3.5) L 07/04/23 05:19 Monocytes # (Manual) 2.3 10^3/uL (0.0-1.0) H 07/04/23 05:19 Eosinophils # (Manual) 0.0 10^3/uL (0-0.7) 07/04/23 05:19 Basophils # (Manual) 0.0 10^3/uL (0-0.1) 07/04/23 05:19 Differential Comment MANUAL DIFFERENTIAL 07/04/23 05:19 Platelet Estimate NORMAL (130-450,000) (NORMAL) 07/04/23 05:19 RBC Morph Micro Appear NORMAL APPEARANCE (NORMAL) 07/04/23 05:19 Sodium 143 mmol/L (135-145) 07/05/23 05:21 Potassium 3.8 mmol/L (3.5-4.5) 07/05/23 05:21 Chloride 115 mmol/L (101-111) H 07/05/23 05:21 Carbon Dioxide 18 mmol/L (21-32) L 07/05/23 05:21 Anion Gap 10.0 (6-13) 07/05/23 05:21 BUN 56 mg/dL (6-20) H 07/05/23 05:21 Creatinine 3.8 mg/dL (0.6-1.3) H 07/05/23 05:21 Estimated GFR (MDRD) 12 (>89) L 07/05/23 05:21 Glucose 88 mg/dL (74-104) 07/05/23 05:21 Lactic Acid 0.9 mmol/L (0.5-2.2) 07/02/23 12:07 Calcium 8.6 mg/dL (8.5-10.3) 07/05/23 05:21 Phosphorus 4.8 mg/dL (2.5-5.0) 07/04/23 05:19 Magnesium 1.7 mg/dL (1.7-2.3) 07/04/23 05:19 Total Bilirubin 0.8 mg/dL (0.2-1.0) 07/02/23 12:07 AST 21 IU/L (10-42) 07/02/23 12:07 ALT 18 IU/L (10-60) 07/02/23 12:07 Alkaline Phosphatase 85 IU/L (42-121) 07/02/23 12:07 Total Protein 6.9 g/dL (6.4-8.9) 07/02/23 12:07 Albumin 3.6 g/dL (3.2-5.5) 07/02/23 12:07 Globulin 3.3 g/dL (2.1-4.2) 07/02/23 12:07 Albumin/Globulin Ratio 1.1 (1.0-2.2) 07/02/23 12:07 Lipase < 10 U/L (11-82) L 07/02/23 12:07 Urine Color YELLOW 07/02/23 13:52 Urine Clarity CLOUDY (CLEAR) 07/02/23 13:52 Urine pH 7.0 PH (5.0-7.5) 07/02/23 13:52 Ur Specific [place] 1.020 (1.002-1.030) 07/02/23 13:52 Urine Protein >=300 mg/dL (NEGATIVE) H 07/02/23 13:52 Urine Glucose (UA) NEGATIVE mg/dL (NEGATIVE) 07/02/23 13:52 Urine Ketones NEGATIVE mg/dL (NEGATIVE) 07/02/23 13:52 Urine Occult Blood LARGE (NEGATIVE) H 07/02/23 13:52 Urine Nitrite NEGATIVE (NEGATIVE) 07/02/23 13:52 Urine Bilirubin NEGATIVE (NEGATIVE) 07/02/23 13:52 Urine Urobilinogen 0.2 (NORMAL) E.U./dL (NORMAL) 07/02/23 13:52 Ur Leukocyte Esterase LARGE (NEGATIVE) H 07/02/23 13:52 Urine RBC 11-25 /HPF (0-5) H 07/02/23 13:52 Urine WBC >25 /HPF (0-5) H 07/02/23 13:52 Urine WBC Clumps PRESENT 07/02/23 13:52 Ur Squamous Epith Cells RARE Squamous (<= Few) 07/02/23 13:52 Urine Bacteria Moderate /HPF (None Seen) H 07/02/23 13:52 Ur Microscopic Review INDICATED 07/02/23 13:52 Urine Culture Comments INDICATED 07/02/23 13:52 Nasal Adenovirus (PCR) NOT DETECTED 07/02/23 11:50 Nasal B. parapertussis DNA (PCR) NOT DETECTED 07/02/23 11:50 Nasal Coronavir 229E PCR NOT DETECTED 07/02/23 11:50 Nasal Coronavir HKU1 PCR NOT DETECTED 07/02/23 11:50 Nasal Coronavir NL63 PCR NOT DETECTED 07/02/23 11:50 Nasal Coronavir OC43 PCR NOT DETECTED 07/02/23 11:50 Nasal Enterovir/Rhinovir PCR NOT DETECTED 07/02/23 11:50 Nasal Influenza B PCR NOT DETECTED 07/02/23 11:50 Nasal Influenza A PCR NOT DETECTED 07/02/23 11:50 Nasal Parainfluen 1 PCR NOT DETECTED 07/02/23 11:50 Nasal Parainfluen 2 PCR NOT DETECTED 07/02/23 11:50 Nasal Parainfluen 3 PCR NOT DETECTED 07/02/23 11:50 Nasal Parainfluen 4 PCR NOT DETECTED 07/02/23 11:50 Nasal RSV (PCR) NOT DETECTED 07/02/23 11:50 Nasal B.pertussis DNA PCR NOT DETECTED 07/02/23 11:50 Nasal C.pneumoniae (PCR) NOT DETECTED 07/02/23 11:50 [place] Human Metapneumo PCR NOT DETECTED 07/02/23 11:50 Nasal M.pneumoniae (PCR) NOT DETECTED 07/02/23 11:50 Nasal SARS-CoV-2 (PCR) NOT DETECTED 07/02/23 11:50 Last Dose Date 07/03/2023 07/04/23 05:19 Last Dose Time 0707/04/23 05:19 Random Vancomycin 20.5 ug/mL 07/04/23 05:19 ABX Reporting Has patient been on IV antibiotics over the past 48 hours?: Yes Current Medications - Current Medications Current Medications: Active Medications Acetaminophen (Acetaminophen 325 Mg Tablet) 650 mg PO Q4HR PRN PRN Reason: Pain 1 to 4, or Fever Last Admin: 07/05/23 17:44 Dose: 650 mg Enoxaparin Sodium (Enoxaparin 30 Mg/0.3 Ml Syringe) 30 mg SUBQ DAILY COUNTS INCLUDE 234 BEDS AT THE [facility] Last Admin: 07/05/23 08:27 Dose: 30 mg Cefazolin Sodium 2 gm/ Sodium (Chloride) 100 mls @ 200 mls/hr IV Q8H COUNTS INCLUDE 234 BEDS AT THE [facility] Last Admin: 07/05/23 20:39 Dose: 200 mls/hr Multi-Ingredient Ointment (Zinc Oxide 20% Oint 30 Gm Tube) 1 applic TOP PRN PRN PRN Reason: Skin Care Last Admin: 07/03/23 20:37 Dose: 1 applic Ondansetron HCl (Ondansetron Odt 4 Mg Tablet) 4 mg TL Q6HR PRN PRN Reason: Nausea / Vomiting Ondansetron HCl (Ondansetron 4 Mg/2 Ml Vial) 4 mg IVP Q6HR PRN PRN Reason: Nausea / Vomiting Oxycodone HCl (Oxycodone 5 Mg Tablet) 5 mg PO Q4HR PRN PRN Reason: Pain 5 to 7 Last Admin: 07/05/23 14:32 Dose: 5 mg Saccharomyces Boulardii (Saccharomyces Boulardii 250 Mg Capsule) 250 mg PO BIDWM COUNTS INCLUDE 234 BEDS AT THE [facility] Last Admin: 07/05/23 16:15 Dose: 250 mg Sodium Chloride (Sodium Chloride Flush 0.9% 10 Ml Syringe) 10 ml IVP PRN PRN PRN Reason: NEEDED PER PROVIDER ORDERS Sodium Chloride (Sodium Chloride Flush 0.9% 10 Ml Syringe) 10 ml IVP 0100,0900,1700 COUNTS INCLUDE 234 BEDS AT THE [facility] Last Admin: 07/05/23 16:16 Dose: 10 ml [facility]iramate ([facility] 25 Mg [facility] Admin: 07/05/23 16:16 Dose: 50 mg Duloxetine HCl [Cymbalta] 60 mg PO DAILY 08/07/18 Montelukast [Singulair] 10 mg PO QPM 05/17/19 Topiramate [Topamax] 100 mg PO QPM 05/18/19 Pantoprazole [Protonix] 40 mg PO DAILY 01/02/22 Clopidogrel [Plavix] 75 mg PO DAILY 10/06/22 Topiramate [Topamax] 50 mg PO QPM 07/03/23
[2023-07-06] MEDS: ceFAZolin (2G) 2 GM in SODIUM CHLORIDE 0.9% MINIBAG 100 ML IV SCH ×3 (05:26→20:50)
[2023-07-06] MEDS: SACCHAROMYCES BOULARDII 250 MG CAPSULE PO SCH ×2 (08:12→17:03)
[2023-07-06] MEDS: ENOXAPARIN 30 MG/0.3 ML SYRINGE SUBQ SCH (08:12)
[2023-07-06] MEDS: SODIUM CHLORIDE FLUSH 0.9% 10 ML SYRINGE IVP SCH ×3 (08:12→23:49)
--- NOTE | 2023-07-06 09:06 | PROVIDER PROGRESS NOTE ---
Assessment/Plan - Problem List (1) Acute renal failure Qualifiers: Acute renal failure type: unspecified Qualified Code(s): N17.9 - Acute kidney failure, unspecified Assessment/Plan: Improving Creatinine 2.9 today, better urine output Continue monitoring renal function (2) Sepsis Qualifiers: Sepsis type: sepsis due to unspecified organism Sepsis acute organ dysfunction status: with acute organ dysfunction Severe sepsis acute organ dysfunction type: acute renal failure Acute renal failure type: unspecified Severe sepsis shock status: without septic shock Qualified Code(s): A41.9 - Sepsis, unspecified organism; R65.20 - Severe sepsis without septic shock; N17.9 - Acute kidney failure, unspecified Assessment/Plan: Improving, Patient bacteremia is MSSA, pansensitive, switched antibiotic to cefazolin from yesterday. Patient need to be on IV antibiotics through 07/17/2023 for total 14 days after blood culture cleared on 07/03/2023 PICC line is planned Once PICC line is in place, renal function is better improved patient can be discharged back to her long-term care facility to complete the treatment course Updated patient son by phone (3) Hypertension Assessment/Plan: Blood pressure is fluctuated a little bit however has been fairly stable without additional treatment Continue monitoring blood pressure (4) Metabolic acidemia Assessment/Plan: Improved With renal function improvement (5) Bacteremia Assessment/Plan: Improving Blood culture repeat 07/03/2023 shows no growth to date. Total antibiotic treatment course from 07/03 - 07/17 - Current Meds Current Meds: Current Medications Generic Name Dose Route Start Last Admin Trade Name Freq PRN Reason Stop Dose Admin Acetaminophen 650 mg 07/02/23 15:22 07/05/23 17:44 Acetaminophen 325 Mg Tablet PO 650 mg Q4HR PRN Administration Pain 1 to 4, or Fever Enoxaparin Sodium 30 mg 07/05/23 09:00 07/06/23 08:12 Enoxaparin 30 Mg/0.3 Ml Syringe SUBQ 30 mg DAILY MUNA Administration Cefazolin Sodium 2 gm/ Sodium 100 mls @ 200 mls/hr 07/05/23 13:22 07/06/23 06:03 Chloride IV Infused Q8H MUNA Infusion Multi-Ingredient Ointment 1 applic 07/03/23 18:17 07/03/23 20:37 Zinc Oxide 20% Oint 30 Gm Tube TOP 1 applic PRN PRN Administration Skin Care Oxycodone HCl 5 mg 07/02/23 15:22 07/05/23 14:32 Oxycodone 5 Mg Tablet PO 5 mg Q4HR PRN Administration Pain 5 to 7 Saccharomyces Boulardii 250 mg 07/02/23 17:00 07/06/23 08:12 Saccharomyces Boulardii 250 Mg Capsule PO 250 mg BIDWM MUNA Administration Sodium Chloride 10 ml 07/02/23 15:22 07/06/23 05:26 Sodium Chloride Flush 0.9% 10 Ml Syringe IVP 10 ml PRN PRN Administration NEEDED PER PROVIDER ORDERS Sodium Chloride 10 ml 07/02/23 17:00 07/06/23 08:12 Sodium Chloride Flush 0.9% 10 Ml Syringe IVP 10 ml 0100,0900,1700 MUNA Administration Topiramate 50 mg 07/05/23 17:00 07/05/23 16:16 Topiramate 25 Mg Tablet PO 50 mg QDDINNER MUNA Administration - Lab Result Fish Bone Diagrams: 07/06/23 10:46 07/06/23 10:46 - Additional Planning My Orders: My Active Orders 07/05/23 13:22 ceFAZolin (2G) [Ancef] 2 gm Sodium Chloride 0.9% Minibag [Normal Saline 0.9% Minibag] 100 ml IV Q8H 07/05/23 Dinner Soft Mechanical Diet [DIET] 07/05/23 17:00 Topiramate [Topamax] 50 mg PO QDDINNER 07/06/23 05:00 VANCOMYCIN RANDOM [CHEM] Timed Subjective - Subjective Patient Reports: Feeling Better (Slept well, appetite is good, feels much improved overall) Objective Vital Signs: Vital Signs - 24 hr 07/05/23 07/05/23 07/05/23 16:00 16:19 17:45 Temperature 36.3 C L 36.3 C L Heart Rate [ 79 89 72 Brachial] Respiratory 18 16 Rate Blood Pressure 137/87 H 164/64 H 111/57 L [Left Brachial artery] Blood Pressure 137/87 H [Right Brachial artery] O2 Saturation 99 88 L 99 07/05/23 07/06/23 23:58 08:00 Temperature 36.4 C L 36.5 C Heart Rate [ 76 81 Brachial] Respiratory 18 20 Rate Blood Pressure 124/69 [Left Brachial artery] Blood Pressure 132/64 H [Right Brachial artery] O2 Saturation 97 98 Oxygen O2 Source [With Activity] Room air O2 Source Room air I&O (Last 24 Hrs): Intake and Output Totals x24h 07/04/23 07/05/23 07/06/23 23:59 23:59 23:59 Intake Total 2545.0 2430 340 Output Total 1220 1350 625 Balance 1325.0 1080 -285 General: Alert, Oriented x3 HEENT: PERRLA, EOMI Neck: Supple, No JVD Neuro: Alert Cardiovascular: Regular rate Respiratory: No respiratory distress - Results Results: Laboratory Results WBC 11.4 x10^3/uL (4.8-10.8) H 07/05/23 05:21 RBC 3.89 10^6/uL (4.20-5.40) L 07/05/23 05:21 Hgb 12.2 g/dL (12.0-16.0) 07/05/23 05:21 Hct 38.3 % (37.0-47.0) 07/05/23 05:21 MCV 98.5 fL (81.0-99.0) 07/05/23 05:21 MCH 31.4 pg (27.0-31.0) H 07/05/23 05:21 MCHC 31.9 g/dL (32.0-36.0) L 07/05/23 05:21 RDW 14.8 % (12.0-15.0) 07/05/23 05:21 Plt Count 185 10^3/uL (130-450) 07/05/23 05:21 MPV 10.6 fL (7.9-10.8) 07/05/23 05:21 Neut # (Auto) 9.0 10^3/uL (1.5-6.6) H 07/05/23 05:21 Lymph # (Auto) 0.6 10^3/uL (1.5-3.5) L 07/05/23 05:21 [place] # (Auto) 1.5 10^3/uL (0.0-1.0) H 07/05/23 05:21 Eos # (Auto) 0.2 10^3/uL (0.0-0.7) 07/05/23 05:21 Baso # (Auto) 0.0 10^3/uL (0.0-0.1) 07/05/23 05:21 Absolute Nucleated RBC 0.00 x10^3/uL 07/05/23 05:21 Total Counted 100 07/04/23 05:19 Band Neuts % (Manual) 3 % (0-10) 07/04/23 05:19 Abnorm Lymph % (Manual) 0 % 07/04/23 05:19 Nucleated RBC % 0.0 /100WBC 07/05/23 05:21 Neutrophils # (Manual) 11.9 10^3/uL (1.5-6.6) H 07/04/23 05:19 Lymphocytes # (Manual) 0.9 10^3/uL (1.5-3.5) L 07/04/23 05:19 Monocytes # (Manual) 2.3 10^3/uL (0.0-1.0) H 07/04/23 05:19 Eosinophils # (Manual) 0.0 10^3/uL (0-0.7) 07/04/23 05:19 Basophils # (Manual) 0.0 10^3/uL (0-0.1) 07/04/23 05:19 Differential Comment MANUAL DIFFERENTIAL 07/04/23 05:19 Platelet Estimate NORMAL (130-450,000) (NORMAL) 07/04/23 05:19 RBC Morph Micro Appear NORMAL APPEARANCE (NORMAL) 07/04/23 05:19 Sodium 143 mmol/L (135-145) 07/05/23 05:21 Potassium 3.8 mmol/L (3.5-4.5) 07/05/23 05:21 Chloride 115 mmol/L (101-111) H 07/05/23 05:21 Carbon Dioxide 18 mmol/L (21-32) L 07/05/23 05:21 Anion Gap 10.0 (6-13) 07/05/23 05:21 BUN 56 mg/dL (6-20) H 07/05/23 05:21 Creatinine 3.8 mg/dL (0.6-1.3) H 07/05/23 05:21 Estimated GFR (MDRD) 12 (>89) L 07/05/23 05:21 Glucose 88 mg/dL (74-104) 07/05/23 05:21 Lactic Acid 0.9 mmol/L (0.5-2.2) 07/02/23 12:07 Calcium 8.6 mg/dL (8.5-10.3) 07/05/23 05:21 Phosphorus 4.8 mg/dL (2.5-5.0) 07/04/23 05:19 Magnesium 1.7 mg/dL (1.7-2.3) 07/04/23 05:19 Total Bilirubin 0.8 mg/dL (0.2-1.0) 07/02/23 12:07 AST 21 IU/L (10-42) 07/02/23 12:07 ALT 18 IU/L (10-60) 07/02/23 12:07 Alkaline Phosphatase 85 IU/L (42-121) 07/02/23 12:07 Total Protein 6.9 g/dL (6.4-8.9) 07/02/23 12:07 Albumin 3.6 g/dL (3.2-5.5) 07/02/23 12:07 Globulin 3.3 g/dL (2.1-4.2) 07/02/23 12:07 Albumin/Globulin Ratio 1.1 (1.0-2.2) 07/02/23 12:07 Lipase < 10 U/L (11-82) L 07/02/23 12:07 Urine Color YELLOW 07/02/23 13:52 Urine Clarity CLOUDY (CLEAR) 07/02/23 13:52 Urine pH 7.0 PH (5.0-7.5) 07/02/23 13:52 Ur Specific [place] 1.020 (1.002-1.030) 07/02/23 13:52 Urine Protein >=300 mg/dL (NEGATIVE) H 07/02/23 13:52 Urine Glucose (UA) NEGATIVE mg/dL (NEGATIVE) 07/02/23 13:52 Urine Ketones NEGATIVE mg/dL (NEGATIVE) 07/02/23 13:52 Urine Occult Blood LARGE (NEGATIVE) H 07/02/23 13:52 Urine Nitrite NEGATIVE (NEGATIVE) 07/02/23 13:52 Urine Bilirubin NEGATIVE (NEGATIVE) 07/02/23 13:52 Urine Urobilinogen 0.2 (NORMAL) E.U./dL (NORMAL) 07/02/23 13:52 Ur Leukocyte Esterase LARGE (NEGATIVE) H 07/02/23 13:52 Urine RBC 11-25 /HPF (0-5) H 07/02/23 13:52 Urine WBC >25 /HPF (0-5) H 07/02/23 13:52 Urine WBC Clumps PRESENT 07/02/23 13:52 Ur Squamous Epith Cells RARE Squamous (<= Few) 07/02/23 13:52 Urine Bacteria Moderate /HPF (None Seen) H 07/02/23 13:52 Ur Microscopic Review INDICATED 07/02/23 13:52 Urine Culture Comments INDICATED 07/02/23 13:52 Nasal Adenovirus (PCR) NOT DETECTED 07/02/23 11:50 Nasal B. parapertussis DNA (PCR) NOT DETECTED 07/02/23 11:50 Nasal Coronavir 229E PCR NOT DETECTED 07/02/23 11:50 Nasal Coronavir HKU1 PCR NOT DETECTED 07/02/23 11:50 Nasal Coronavir NL63 PCR NOT DETECTED 07/02/23 11:50 Nasal Coronavir OC43 PCR NOT DETECTED 07/02/23 11:50 Nasal Enterovir/Rhinovir PCR NOT DETECTED 07/02/23 11:50 Nasal Influenza B PCR NOT DETECTED 07/02/23 11:50 Nasal Influenza A PCR NOT DETECTED 07/02/23 11:50 Nasal Parainfluen 1 PCR NOT DETECTED 07/02/23 11:50 Nasal Parainfluen 2 PCR NOT DETECTED 07/02/23 11:50 Nasal Parainfluen 3 PCR NOT DETECTED 07/02/23 11:50 Nasal Parainfluen 4 PCR NOT DETECTED 07/02/23 11:50 Nasal RSV (PCR) NOT DETECTED 07/02/23 11:50 Nasal B.pertussis DNA PCR NOT DETECTED 07/02/23 11:50 Nasal C.pneumoniae (PCR) NOT DETECTED 07/02/23 11:50 [place] Human Metapneumo PCR NOT DETECTED 07/02/23 11:50 Nasal M.pneumoniae (PCR) NOT DETECTED 07/02/23 11:50 Nasal SARS-CoV-2 (PCR) NOT DETECTED 07/02/23 11:50 Last Dose Date 07/03/2023 07/04/23 05:19 Last Dose Time 0707 07/04/23 05:19 Random Vancomycin 20.5 ug/mL 07/04/23 05:19 ABX Reporting Has patient been on IV antibiotics over the past 48 hours?: Yes Current Medications - Current Medications Current Medications: Active Medications Acetaminophen (Acetaminophen 325 Mg Tablet) 650 mg PO Q4HR PRN PRN Reason: Pain 1 to 4, or Fever Last Admin: 07/05/23 17:44 Dose: 650 mg Enoxaparin Sodium (Enoxaparin 30 Mg/0.3 Ml Syringe) 30 mg SUBQ DAILY [facility] Last Admin: 07/06/23 08:12 Dose: 30 mg Cefazolin Sodium 2 gm/ Sodium (Chloride) 100 mls @ 200 mls/hr IV Q8H [facility] Last Infusion: 07/06/23 13:58 Dose: Infused Multi-Ingredient Ointment (Zinc Oxide 20% Oint 30 Gm Tube) 1 applic TOP PRN PRN PRN Reason: Skin Care Last Admin: 07/03/23 20:37 Dose: 1 applic Ondansetron HCl (Ondansetron Odt 4 Mg Tablet) 4 mg TL Q6HR PRN PRN Reason: Nausea / Vomiting Ondansetron HCl (Ondansetron 4 Mg/2 Ml Vial) 4 mg IVP Q6HR PRN PRN Reason: Nausea / Vomiting Oxycodone HCl (Oxycodone 5 Mg Tablet) 5 mg PO Q4HR PRN PRN Reason: Pain 5 to 7 Last Admin: 07/05/23 14:32 Dose: 5 mg Saccharomyces Boulardii (Saccharomyces Boulardii 250 Mg Capsule) 250 mg PO BIDWM [facility] Last Admin: 07/06/23 08:12 Dose: 250 mg Sodium Chloride (Sodium Chloride Flush 0.9% 10 Ml Syringe) 10 ml IVP PRN PRN PRN Reason: NEEDED PER PROVIDER ORDERS Last Admin: 07/06/23 05:26 Dose: 10 ml Sodium Chloride (Sodium Chloride Flush 0.9% 10 Ml Syringe) 10 ml IVP 0100,0900,1700 [facility] Last Admin: 07/06/23 08:12 Dose: 10 ml Topiramate (Topiramate 25 Mg Tablet) 50 mg PO QDDINNER [facility] Last Admin: 07/05/23 16:16 Dose: 50 mg Duloxetine HCl [Cymbalta] 60 mg PO DAILY 08/07/18 Montelukast [Singulair] 10 mg PO QPM 05/17/19 Topiramate [Topamax] 100 mg PO QPM 05/18/19 Pantoprazole [Protonix] 40 mg PO DAILY 01/02/22 Clopidogrel [Plavix] 75 mg PO DAILY 10/06/22 Topiramate [Topamax] 50 mg PO QPM 07/03/23
[2023-07-06 11:04] LABS: BASOPHILS % (AUTO) 0.3 %; EOSINOPHILS # (AUTO) 0.2 10^3/uL (0.0-0.7); EOSINOPHILS % (AUTO) 1.8 %; HGB - HEMOGLOBIN 12.7 g/dL (12.0-16.0); LYMPHOCYTES # (AUTO) 0.6 10^3/uL (1.5-3.5); LYMPHOCYTES % (AUTO) 5.6 %; MEAN CORPUSCULAR HEMOGLOBIN 30.6 pg (27.0-31.0); MEAN CORPUSCULAR HGB CONC 31.8 g/dL (32.0-36.0); MEAN CORPUSCULAR VOLUME 96.4 fL (81.0-99.0); MEAN PLATELET VOLUME 10.6 fL (7.9-10.8); MONOCYTES # (AUTO) 1.1 10^3/uL (0.0-1.0); NEUTROPHILS # (AUTO) 8.1 10^3/uL (1.5-6.6); NEUTROPHILS % (AUTO) 80.3 %; PLT - PLATELET COUNT 223 10^3/uL (130-450); RED BLOOD COUNT 4.15 10^6/uL (4.20-5.40); RED CELL DISTRIBUTION WIDTH 14.5 % (12.0-15.0); WHITE BLOOD COUNT 10.1 x10^3/uL (4.8-10.8)
[2023-07-06 11:19] LABS: VANCOMYCIN,RANDOM 13.7 ug/mL
[2023-07-06 11:20] LABS: CALCIUM 8.7 mg/dL (8.5-10.3); CREATININE 2.9 mg/dL (0.6-1.3); POTASSIUM 3.6 mmol/L (3.5-4.5)
[2023-07-06] MEDS: ACETAMINOPHEN 325 MG TABLET PO PRN (15:26)
[2023-07-06] MEDS: TOPIRAMATE 25 MG TABLET PO SCH (17:03)
[2023-07-07] MEDS: ceFAZolin (2G) 2 GM in SODIUM CHLORIDE 0.9% MINIBAG 100 ML IV SCH ×3 (05:28→21:19)
[2023-07-07 05:37] LABS: BASOPHILS % (AUTO) 0.3 %; EOSINOPHILS # (AUTO) 0.2 10^3/uL (0.0-0.7); EOSINOPHILS % (AUTO) 1.9 %; HCT - HEMATOCRIT 41.8 % (37.0-47.0); HGB - HEMOGLOBIN 13.3 g/dL (12.0-16.0); LYMPHOCYTES # (AUTO) 0.7 10^3/uL (1.5-3.5); LYMPHOCYTES % (AUTO) 7.3 %; MEAN CORPUSCULAR HEMOGLOBIN 30.6 pg (27.0-31.0); MEAN CORPUSCULAR HGB CONC 31.8 g/dL (32.0-36.0); MEAN CORPUSCULAR VOLUME 96.1 fL (81.0-99.0); MONOCYTES % (AUTO) 10.6 %; NEUTROPHILS # (AUTO) 7.6 10^3/uL (1.5-6.6); NEUTROPHILS % (AUTO) 78.7 %; PLT - PLATELET COUNT 234 10^3/uL (130-450); RED BLOOD COUNT 4.35 10^6/uL (4.20-5.40); RED CELL DISTRIBUTION WIDTH 14.5 % (12.0-15.0); WHITE BLOOD COUNT 9.7 x10^3/uL (4.8-10.8)
[2023-07-07 05:52] LABS: CALCIUM 8.7 mg/dL (8.5-10.3); CREATININE 2.5 mg/dL (0.6-1.3); POTASSIUM 3.4 mmol/L (3.5-4.5)
--- NOTE | 2023-07-07 07:57 | PROVIDER PROGRESS NOTE ---
Assessment/Plan - Problem List (1) Acute renal failure Qualifiers: Acute renal failure type: unspecified Qualified Code(s): N17.9 - Acute kidney failure, unspecified Assessment/Plan: Improving Creatinine improved to 2.5. Patient has more urine output Give 1 L of normal saline today, monitoring creatinine level (2) Sepsis Qualifiers: Sepsis type: sepsis due to unspecified organism Sepsis acute organ dysfunction status: with acute organ dysfunction Severe sepsis acute organ dysfunction type: acute renal failure Acute renal failure type: unspecified Severe sepsis shock status: without septic shock Qualified Code(s): A41.9 - Sepsis, unspecified organism; R65.20 - Severe sepsis without septic shock; N17.9 - Acute kidney failure, unspecified Assessment/Plan: Improving, Blood culture has no growth to date from the repeat culture on 07/03/2023. With bacteremia from MSSA, patient is now on cefazolin every 8 hours PICC line is placed today, Patient can be discharged back to her facility tomorrow if rn social work is able to arrange things for safe discharge Patient need to use cefazolin every 8 hours till 07/17/2023 (3) Hypertension Assessment/Plan: BP is fairly stable Continue with current treatment regimen, no need for adjustment (4) Metabolic acidemia Assessment/Plan: Improving, her bicarb is still not normal which can be from the impaired renal function. We will follow up with BMP tomorrow after today's 1 L normal saline given (5) Bacteremia Assessment/Plan: Improved Repeat culture on 07/03/2023 no growth to date. - Current Meds Current Meds: Current Medications Generic Name Dose Route Start Last Admin Trade Name Freq PRN Reason Stop Dose Admin Acetaminophen 650 mg 07/02/23 15:22 07/06/23 15:26 Acetaminophen 325 Mg Tablet PO 650 mg Q4HR PRN Administration Pain 1 to 4, or Fever Enoxaparin Sodium 30 mg 07/05/23 09:00 07/06/23 08:12 Enoxaparin 30 Mg/0.3 Ml Syringe SUBQ 30 mg DAILY MUNA Administration Cefazolin Sodium 2 gm/ Sodium 100 mls @ 200 mls/hr 07/05/23 13:22 07/07/23 06:21 Chloride IV Infused Q8H MUNA Infusion Multi-Ingredient Ointment 1 applic 07/03/23 18:17 07/03/23 20:37 Zinc Oxide 20% Oint 30 Gm Tube TOP 1 applic PRN PRN Administration Skin Care Oxycodone HCl 5 mg 07/02/23 15:22 07/05/23 14:32 Oxycodone 5 Mg Tablet PO 5 mg Q4HR PRN Administration Pain 5 to 7 Saccharomyces Boulardii 250 mg 07/02/23 17:00 07/06/23 17:03 Saccharomyces Boulardii 250 Mg Capsule PO 250 mg BIDWM MUNA Administration Sodium Chloride 10 ml 07/02/23 15:22 07/06/23 05:26 Sodium Chloride Flush 0.9% 10 Ml Syringe IVP 10 ml PRN PRN Administration NEEDED PER PROVIDER ORDERS Sodium Chloride 10 ml 07/02/23 17:00 07/06/23 23:49 Sodium Chloride Flush 0.9% 10 Ml Syringe IVP 10 ml 0100,0900,1700 MUNA Administration Topiramate 50 mg 07/05/23 17:00 07/06/23 17:03 Topiramate 25 Mg Tablet PO 50 mg QDDINNER MUNA Administration - Lab Result Fish Bone Diagrams: 07/07/23 04:58 07/07/23 04:58 - Additional Planning My Orders: My Active Orders 07/07/23 08:00 Potassium Chloride [K-Dur] 20 meq PO DAILYWM Sodium Chloride 0.9% [Normal Saline 0.9%] 1,000 ml IV 125 mls/hr 07/08/23 05:00 BMP - BASIC METABOLIC PANEL [CHEM] DAILYLAB 07/09/23 05:00 BMP - BASIC METABOLIC PANEL [CHEM] DAILYLAB 07/10/23 05:00 BMP - BASIC METABOLIC PANEL [CHEM] DAILYLAB 07/11/23 05:00 BMP - BASIC METABOLIC PANEL [CHEM] DAILYLAB 07/12/23 05:00 BMP - BASIC METABOLIC PANEL [CHEM] DAILYLAB Subjective - Subjective Patient Reports: Feeling Better, Other (Patient reports her appetite has been improving, she likes the salad, she feels like those are healthy for her overall condition. Patient has no new complaints) Objective Vital Signs: Vital Signs - 24 hr 07/06/23 07/06/23 07/06/23 08:00 15:50 23:59 Temperature 36.5 C 36.3 C L 36.6 C Heart Rate [ 81 81 77 Brachial] Respiratory 20 18 18 Rate Blood Pressure 124/69 130/52 L [Left Brachial artery] Blood Pressure 147/74 H [Right Brachial artery] O2 Saturation 98 99 99 07/07/23 07:47 Temperature 36.5 C Heart Rate [ 72 Brachial] Respiratory 18 Rate Blood Pressure [Left Brachial artery] Blood Pressure [Right Brachial artery] O2 Saturation 100 Oxygen O2 Source [With Activity] Room air O2 Source Room air I&O (Last 24 Hrs): Intake and Output Totals x24h 07/05/23 07/06/23 07/07/23 23:59 23:59 23:59 Intake Total 2430 1030 300 Output Total 1350 1825 550 Balance 2183 -359 -283 General: Alert, Oriented x3 HEENT: PERRLA, EOMI Neck: No JVD Neuro: Alert, Other (Bedbound on baseline) Abdomen: Soft, No tenderness - Results Results: Laboratory Results WBC 9.7 x10^3/uL (4.8-10.8) 07/07/23 04:58 RBC 4.35 10^6/uL (4.20-5.40) 07/07/23 04:58 Hgb 13.3 g/dL (12.0-16.0) 07/07/23 04:58 Hct 41.8 % (37.0-47.0) 07/07/23 04:58 MCV 96.1 fL (81.0-99.0) 07/07/23 04:58 MCH 30.6 pg (27.0-31.0) 07/07/23 04:58 MCHC 31.8 g/dL (32.0-36.0) L 07/07/23 04:58 RDW 14.5 % (12.0-15.0) 07/07/23 04:58 Plt Count 234 10^3/uL (130-450) 07/07/23 04:58 MPV 11.0 fL (7.9-10.8) H 07/07/23 04:58 Neut # (Auto) 7.6 10^3/uL (1.5-6.6) H 07/07/23 04:58 Lymph # (Auto) 0.7 10^3/uL (1.5-3.5) L 07/07/23 04:58 [place] # (Auto) 1.0 10^3/uL (0.0-1.0) 07/07/23 04:58 Eos # (Auto) 0.2 10^3/uL (0.0-0.7) 07/07/23 04:58 Baso # (Auto) 0.0 10^3/uL (0.0-0.1) 07/07/23 04:58 Absolute Nucleated RBC 0.00 x10^3/uL 07/07/23 04:58 Total Counted 100 07/04/23 05:19 Band Neuts % (Manual) 3 % (0-10) 07/04/23 05:19 Abnorm Lymph % (Manual) 0 % 07/04/23 05:19 Nucleated RBC % 0.0 /100WBC 07/07/23 04:58 Neutrophils # (Manual) 11.9 10^3/uL (1.5-6.6) H 07/04/23 05:19 Lymphocytes # (Manual) 0.9 10^3/uL (1.5-3.5) L 07/04/23 05:19 Monocytes # (Manual) 2.3 10^3/uL (0.0-1.0) H 07/04/23 05:19 Eosinophils # (Manual) 0.0 10^3/uL (0-0.7) 07/04/23 05:19 Basophils # (Manual) 0.0 10^3/uL (0-0.1) 07/04/23 05:19 Differential Comment MANUAL DIFFERENTIAL 07/04/23 05:19 Platelet Estimate NORMAL (130-450,000) (NORMAL) 07/04/23 05:19 RBC Morph Micro Appear NORMAL APPEARANCE (NORMAL) 07/04/23 05:19 Sodium 141 mmol/L (135-145) 07/07/23 04:58 Potassium 3.4 mmol/L (3.5-4.5) L 07/07/23 04:58 Chloride 114 mmol/L (101-111) H 07/07/23 04:58 Carbon Dioxide 18 mmol/L (21-32) L 07/07/23 04:58 Anion Gap 9.0 (6-13) 07/07/23 04:58 BUN 38 mg/dL (6-20) H 07/07/23 04:58 Creatinine 2.5 mg/dL (0.6-1.3) H 07/07/23 04:58 Estimated GFR (MDRD) 19 (>89) L 07/07/23 04:58 Glucose 96 mg/dL (74-104) 07/07/23 04:58 Lactic Acid 0.9 mmol/L (0.5-2.2) 07/02/23 12:07 Calcium 8.7 mg/dL (8.5-10.3) 07/07/23 04:58 Phosphorus 4.8 mg/dL (2.5-5.0) 07/04/23 05:19 Magnesium 1.7 mg/dL (1.7-2.3) 07/04/23 05:19 Total Bilirubin 0.8 mg/dL (0.2-1.0) 07/02/23 12:07 AST 21 IU/L (10-42) 07/02/23 12:07 ALT 18 IU/L (10-60) 07/02/23 12:07 Alkaline Phosphatase 85 IU/L (42-121) 07/02/23 12:07 Total Protein 6.9 g/dL (6.4-8.9) 07/02/23 12:07 Albumin 3.6 g/dL (3.2-5.5) 07/02/23 12:07 Globulin 3.3 g/dL (2.1-4.2) 07/02/23 12:07 Albumin/Globulin Ratio 1.1 (1.0-2.2) 07/02/23 12:07 Lipase < 10 U/L (11-82) L 07/02/23 12:07 Urine Color YELLOW 07/02/23 13:52 Urine Clarity CLOUDY (CLEAR) 07/02/23 13:52 Urine pH 7.0 PH (5.0-7.5) 07/02/23 13:52 Ur Specific [place] 1.020 (1.002-1.030) 07/02/23 13:52 Urine Protein >=300 mg/dL (NEGATIVE) H 07/02/23 13:52 Urine Glucose (UA) NEGATIVE mg/dL (NEGATIVE) 07/02/23 13:52 Urine Ketones NEGATIVE mg/dL (NEGATIVE) 07/02/23 13:52 Urine Occult Blood LARGE (NEGATIVE) H 07/02/23 13:52 Urine Nitrite NEGATIVE (NEGATIVE) 07/02/23 13:52 Urine Bilirubin NEGATIVE (NEGATIVE) 07/02/23 13:52 Urine Urobilinogen 0.2 (NORMAL) E.U./dL (NORMAL) 07/02/23 13:52 Ur Leukocyte Esterase LARGE (NEGATIVE) H 07/02/23 13:52 Urine RBC 11-25 /HPF (0-5) H 07/02/23 13:52 Urine WBC >25 /HPF (0-5) H 07/02/23 13:52 Urine WBC Clumps PRESENT 07/02/23 13:52 Ur Squamous Epith Cells RARE Squamous (<= Few) 07/02/23 13:52 Urine Bacteria Moderate /HPF (None Seen) H 07/02/23 13:52 Ur Microscopic Review INDICATED 07/02/23 13:52 Urine Culture Comments INDICATED 07/02/23 13:52 Nasal Adenovirus (PCR) NOT DETECTED 07/02/23 11:50 Nasal B. parapertussis DNA (PCR) NOT DETECTED 07/02/23 11:50 Nasal Coronavir 229E PCR NOT DETECTED 07/02/23 11:50 Nasal Coronavir HKU1 PCR NOT DETECTED 07/02/23 11:50 Nasal Coronavir NL63 PCR NOT DETECTED 07/02/23 11:50 Nasal Coronavir OC43 PCR NOT DETECTED 07/02/23 11:50 Nasal Enterovir/Rhinovir PCR NOT DETECTED 07/02/23 11:50 Nasal Influenza B PCR NOT DETECTED 07/02/23 11:50 Nasal Influenza A PCR NOT DETECTED 07/02/23 11:50 Nasal Parainfluen 1 PCR NOT DETECTED 07/02/23 11:50 Nasal Parainfluen 2 PCR NOT DETECTED 07/02/23 11:50 Nasal Parainfluen 3 PCR NOT DETECTED 07/02/23 11:50 Nasal Parainfluen 4 PCR NOT DETECTED 07/02/23 11:50 Nasal RSV (PCR) NOT DETECTED 07/02/23 11:50 Nasal B.pertussis DNA PCR NOT DETECTED 07/02/23 11:50 Nasal C.pneumoniae (PCR) NOT DETECTED 07/02/23 11:50 [place] Human Metapneumo PCR NOT DETECTED 07/02/23 11:50 Nasal M.pneumoniae (PCR) NOT DETECTED 07/02/23 11:50 Nasal SARS-CoV-2 (PCR) NOT DETECTED 07/02/23 11:50 Last Dose Date UNKNOWN 07/06/23 10:46 Last Dose Time UNKNOWN 07/06/23 10:46 Random Vancomycin 13.7 ug/mL 07/06/23 10:46 ABX Reporting Has patient been on IV antibiotics over the past 48 hours?: Yes Current Medications - Current Medications Current Medications: Active Medications Generic Name Dose Route Start Last Admin Trade Name Freq PRN Reason Stop Dose Admin Acetaminophen 650 mg 07/02/23 15:22 07/06/23 15:26 Acetaminophen 325 Mg Tablet PO 650 mg Q4HR PRN Administration Pain 1 to 4, or Fever Enoxaparin Sodium 30 mg 07/05/23 09:00 07/07/23 08:10 Enoxaparin 30 Mg/0.3 Ml Syringe SUBQ 30 mg DAILY MUNA Administration Cefazolin Sodium 2 gm/ Sodium 100 mls @ 200 mls/hr 07/05/23 13:22 07/07/23 06:21 Chloride IV Infused Q8H MUNA Infusion Sodium Chloride 1,000 mls @ 125 mls/hr 07/07/23 08:00 07/07/23 08:11 Normal Saline 0.9% IV 07/07/23 15:59 0 mls/hr .Q8H MUNA Infusion Multi-Ingredient Ointment 1 applic 07/03/23 18:17 07/03/23 20:37 Zinc Oxide 20% Oint 30 Gm Tube TOP 1 applic PRN PRN Administration Skin Care Ondansetron HCl 4 mg 07/02/23 15:22 Ondansetron Odt 4 Mg Tablet TL Q6HR PRN Nausea / Vomiting Ondansetron HCl 4 mg 07/02/23 15:22 Ondansetron 4 Mg/2 Ml Vial IVP Q6HR PRN Nausea / Vomiting Oxycodone HCl 5 mg 07/02/23 15:22 07/05/23 14:32 Oxycodone 5 Mg Tablet PO 5 mg Q4HR PRN Administration Pain 5 to 7 Polyethylene Glycol 17 gm 07/07/23 12:00 Polyethylene Glycol 3350 17 Gm Packet PO DAILY MUNA Potassium Chloride 20 meq 07/07/23 08:00 07/07/23 08:10 Potassium Chloride 20 Meq Tablet PO 07/09/23 07:59 20 meq DAILYWM MUNA Administration Saccharomyces Boulardii 250 mg 07/02/23 17:00 07/07/23 08:10 Saccharomyces Boulardii 250 Mg Capsule PO 250 mg BIDWM MUNA Administration Sodium Chloride 10 ml 07/02/23 15:22 07/06/23 05:26 Sodium Chloride Flush 0.9% 10 Ml Syringe IVP 10 ml PRN PRN Administration NEEDED PER PROVIDER ORDERS Sodium Chloride 10 ml 07/02/23 17:00 07/07/23 08:11 Sodium Chloride Flush 0.9% 10 Ml Syringe IVP 10 ml 0100,0900,1700 MUNA Administration Topiramate 50 mg 07/05/23 17:00 07/06/23 17:03 Topiramate 25 Mg Tablet PO 50 mg QDDINNER MUNA Administration Duloxetine HCl [Cymbalta] 60 mg PO DAILY 08/07/18 Montelukast [Singulair] 10 mg PO QPM 05/17/19 Topiramate [Topamax] 100 mg PO QPM 05/18/19 Pantoprazole [Protonix] 40 mg PO DAILY 01/02/22 Clopidogrel [Plavix] 75 mg PO DAILY 10/06/22 Topiramate [Topamax] 50 mg PO QPM 07/03/23
[2023-07-07] MEDS ORDERED: SODIUM CHLORIDE 0.9% 1,000 ML IV SCH (08:00)
[2023-07-07] MEDS: ENOXAPARIN 30 MG/0.3 ML SYRINGE SUBQ SCH (08:10)
[2023-07-07] MEDS: POTASSIUM CHLORIDE 20 MEQ TABLET PO SCH (08:10)
[2023-07-07] MEDS: SACCHAROMYCES BOULARDII 250 MG CAPSULE PO SCH ×2 (08:10→17:12)
[2023-07-07] MEDS: SODIUM CHLORIDE FLUSH 0.9% 10 ML SYRINGE IVP SCH ×2 (08:11→17:12)
--- NOTE | 2023-07-07 12:39 | ANESTHESIA PROCEDURE NOTE ---
Anesth Central Line Template - Central Line Central Line Preparation: Consent Obtained, Time out completed, Ultrasound used, Sterile prep and drape Central line location: Right Basilic Central line type: PICC Single Lumen Central line catheter tip site resides: Superior vena cava (SVC) Central line aftercare: Secured, Placement confirmed, No pneumothorax, No complications, Bundle checklist complete, Pt tolerated well, Other Other Info/Details: cut @36, threaded to hub. Aspirates and flushes after cap applied. Secured.
--- NOTE | 2023-07-07 12:51 | XRAY Report ---
PROCEDURE: Chest for Line Placement INDICATIONS: new PICC @ Right TECHNIQUE: One view of the chest was acquired. COMPARISON: Chest x-ray 07/02/2023. FINDINGS: Surgical changes and devices: Interval placement of right PICC. The exact location of the tip is dif ficult to see and likely terminates in the right brachiocephalic vein versus proximal SVC. Right uppe r quadrant surgical clips.. Lungs and pleura: No pleural effusions or pneumothorax. Lungs are clear. Mediastinum: Mediastinal contours appear normal. Heart size is normal. Bones and chest wall: No suspicious bony lesions. Overlying soft tissues appear unremarkable. IMPRESSION: Interval placement of right PICC. The exact location of the tip is difficult to see and likely termin ates in the distal right brachiocephalic vein versus proximal SVC. Reviewed by: Hugo Villanueva MD on 07/07/2023 12:50 PM PDT Approved by: Hugo Villanueva MD on 07/07/2023 12:50 PM PDT Station ID: [id number]
[2023-07-07] MEDS: polyethylene glycoL 3350 17 GM PACKET PO SCH (12:58)
[2023-07-07] MEDS ORDERED: lidocaine 1% 20 ML MDV SUBQ ONE (13:00)
[2023-07-07] MEDS: ACETAMINOPHEN 325 MG TABLET PO PRN (13:48)
[2023-07-07] MEDS ORDERED: NYSTATIN POWDER 15 GM TOP PRN (16:20)
[2023-07-07] MEDS: TOPIRAMATE 25 MG TABLET PO SCH (17:12)
[2023-07-07] MEDS: ZINC OXIDE 20% OINT 30 GM TUBE TOP PRN (20:12)
[2023-07-08] MEDS: SODIUM CHLORIDE FLUSH 0.9% 10 ML SYRINGE IVP SCH ×3 (01:20→16:56)
[2023-07-08] MEDS: ceFAZolin (2G) 2 GM in SODIUM CHLORIDE 0.9% MINIBAG 100 ML IV SCH ×3 (05:49→20:47)
[2023-07-08 05:51] LABS: CALCIUM 8.3 mg/dL (8.5-10.3); POTASSIUM 3.6 mmol/L (3.5-4.5)
[2023-07-08] MEDS: ENOXAPARIN 30 MG/0.3 ML SYRINGE SUBQ SCH (08:42)
[2023-07-08] MEDS: POTASSIUM CHLORIDE 20 MEQ TABLET PO SCH (08:42)
[2023-07-08] MEDS: polyethylene glycoL 3350 17 GM PACKET PO SCH (08:42)
[2023-07-08] MEDS: SACCHAROMYCES BOULARDII 250 MG CAPSULE PO SCH ×2 (08:42→16:56)
[2023-07-08] MEDS: SENNA 8.6 MG TABLET PO SCH (08:42)
[2023-07-08] MEDS: TOPIRAMATE 25 MG TABLET PO SCH (16:56)
--- NOTE | 2023-07-08 20:08 | PROVIDER PROGRESS NOTE ---
Assessment/Plan - Problem List (1) Acute renal failure Qualifiers: Acute renal failure type: unspecified Qualified Code(s): N17.9 - Acute kidney failure, unspecified Assessment/Plan: Improving, creatinine 2.0 today, comparing to the time of admission it is a significant improvement. Patient also has good urine output Continue following up with the renal function (2) Sepsis Qualifiers: Sepsis type: sepsis due to unspecified organism Sepsis acute organ dysfunction status: with acute organ dysfunction Severe sepsis acute organ dysfunction type: acute renal failure Acute renal failure type: unspecified Severe sepsis shock status: without septic shock Qualified Code(s): A41.9 - Sepsis, unspecified organism; R65.20 - Severe sepsis without septic shock; N17.9 - Acute kidney failure, unspecified Assessment/Plan: Continue improvingh Continue treat MSSA bacteremia with cefazolin 2 g every 8h PICC line was placed yesterday, 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 insurance authorization to send patient back to complete treatment course of cefazolin till 07/17/2023 for total 14 days of treatment course after the bacteremia being cleared 07/03 (3) Hypertension Assessment/Plan: Stable, Continue current treatment regimen (4) Metabolic acidemia Assessment/Plan: with renal function being improving, the metabolic acidosis has been almost resolved (5) Bacteremia Assessment/Plan: Repeat culture on 07/03/2023 no growth to date - Current Meds Current Meds: Current Medications Generic Name Dose Route Start Last Admin Trade Name Freq PRN Reason Stop Dose Admin Acetaminophen 650 mg 07/02/23 15:22 07/07/23 13:48 Acetaminophen 325 Mg Tablet PO 650 mg Q4HR PRN Administration Pain 1 to 4, or Fever Enoxaparin Sodium 30 mg 07/05/23 09:00 07/08/23 08:42 Enoxaparin 30 Mg/0.3 Ml Syringe SUBQ 30 mg DAILY MUNA Administration Cefazolin Sodium 2 gm/ Sodium 100 mls @ 200 mls/hr 07/05/23 13:22 07/08/23 13:51 Chloride IV Infused Q8H MUNA Infusion Multi-Ingredient Ointment 1 applic 07/03/23 18:17 07/07/23 20:12 Zinc Oxide 20% Oint 30 Gm Tube TOP 1 applic PRN PRN Administration Skin Care Nystatin 1 applic 07/07/23 16:20 07/07/23 20:12 Nystatin Powder 15 Gm TOP 1 applic BID PRN Administration skin fold moisture Oxycodone HCl 5 mg 07/02/23 15:22 07/05/23 14:32 Oxycodone 5 Mg Tablet PO 5 mg Q4HR PRN Administration Pain 5 to 7 Polyethylene Glycol 17 gm 07/07/23 12:00 07/08/23 08:42 Polyethylene Glycol 3350 17 Gm Packet PO 17 gm DAILY MUNA Administration Potassium Chloride 20 meq 07/07/23 08:00 07/08/23 08:42 Potassium Chloride 20 Meq Tablet PO 07/09/23 07:59 20 meq DAILYWM MUNA Administration Saccharomyces Boulardii 250 mg 07/02/23 17:00 07/08/23 16:56 Saccharomyces Boulardii 250 Mg Capsule PO 250 mg BIDWM MUNA Administration Senna 8.6 - 17.2 mg 07/08/23 09:00 07/08/23 08:42 Senna 8.6 Mg Tablet PO 8.6 mg DAILY MUNA Administration Sodium Chloride 10 ml 07/02/23 15:22 07/06/23 05:26 Sodium Chloride Flush 0.9% 10 Ml Syringe IVP 10 ml PRN PRN Administration NEEDED PER PROVIDER ORDERS Sodium Chloride 10 ml 07/02/23 17:00 07/08/23 16:56 Sodium Chloride Flush 0.9% 10 Ml Syringe IVP 10 ml 0100,0900,1700 MUNA Administration Topiramate 50 mg 07/05/23 17:00 07/08/23 16:56 Topiramate 25 Mg Tablet PO 50 mg QDDINNER MUNA Administration - Lab Result Fish Bone Diagrams: 07/07/23 04:58 07/08/23 05:04 - Additional Planning My Orders: My Active Orders 07/09/23 05:00 BMP - BASIC METABOLIC PANEL [CHEM] DAILYLAB 07/10/23 05:00 BMP - BASIC METABOLIC PANEL [CHEM] DAILYLAB 07/11/23 05:00 BMP - BASIC METABOLIC PANEL [CHEM] DAILYLAB 07/12/23 05:00 BMP - BASIC METABOLIC PANEL [CHEM] DAILYLAB Subjective - Subjective Patient Reports: Feeling Better (Appetite is good, is looking forward to go back to her facility) Objective Vital Signs: Vital Signs - 24 hr 07/08/23 07/08/23 07/08/23 00:02 07:43 16:00 Temperature 36.6 C 36.4 C L 36.3 C L Heart Rate [ 81 77 82 Brachial] Respiratory 18 18 16 Rate Blood Pressure 132/66 H 153/67 H [Left Brachial artery] Blood Pressure 121/47 L [Right Brachial artery] O2 Saturation 99 99 98 Oxygen O2 Source [With Activity] Room air O2 Source Room air I&O (Last 24 Hrs): Intake and Output Totals x24h 07/06/23 07/07/23 07/08/23 23:59 23:59 23:59 Intake Total 1030 5559.431 8714 Output Total 1825 1700 1650 Balance -795 160.000 -190 General: Alert, Cooperative, No acute distress HEENT: Atraumatic Neck: No JVD Neuro: Alert Cardiovascular: Regular rate Abdomen: Normal bowel sounds, Soft Extremities: Other (Bedbound baseline) - Results Results: Laboratory Results WBC 9.7 x10^3/uL (4.8-10.8) 07/07/23 04:58 RBC 4.35 10^6/uL (4.20-5.40) 07/07/23 04:58 Hgb 13.3 g/dL (12.0-16.0) 07/07/23 04:58 Hct 41.8 % (37.0-47.0) 07/07/23 04:58 MCV 96.1 fL (81.0-99.0) 07/07/23 04:58 MCH 30.6 pg (27.0-31.0) 07/07/23 04:58 MCHC 31.8 g/dL (32.0-36.0) L 07/07/23 04:58 RDW 14.5 % (12.0-15.0) 07/07/23 04:58 Plt Count 234 10^3/uL (130-450) 07/07/23 04:58 MPV 11.0 fL (7.9-10.8) H 07/07/23 04:58 Neut # (Auto) 7.6 10^3/uL (1.5-6.6) H 07/07/23 04:58 Lymph # (Auto) 0.7 10^3/uL (1.5-3.5) L 07/07/23 04:58 [place] # (Auto) 1.0 10^3/uL (0.0-1.0) 07/07/23 04:58 Eos # (Auto) 0.2 10^3/uL (0.0-0.7) 07/07/23 04:58 Baso # (Auto) 0.0 10^3/uL (0.0-0.1) 07/07/23 04:58 Absolute Nucleated RBC 0.00 x10^3/uL 07/07/23 04:58 Total Counted 100 07/04/23 05:19 Band Neuts % (Manual) 3 % (0-10) 07/04/23 05:19 Abnorm Lymph % (Manual) 0 % 07/04/23 05:19 Nucleated RBC % 0.0 /100WBC 07/07/23 04:58 Neutrophils # (Manual) 11.9 10^3/uL (1.5-6.6) H 07/04/23 05:19 Lymphocytes # (Manual) 0.9 10^3/uL (1.5-3.5) L 07/04/23 05:19 Monocytes # (Manual) 2.3 10^3/uL (0.0-1.0) H 07/04/23 05:19 Eosinophils # (Manual) 0.0 10^3/uL (0-0.7) 07/04/23 05:19 Basophils # (Manual) 0.0 10^3/uL (0-0.1) 07/04/23 05:19 Differential Comment MANUAL DIFFERENTIAL 07/04/23 05:19 Platelet Estimate NORMAL (130-450,000) (NORMAL) 07/04/23 05:19 RBC Morph Micro Appear NORMAL APPEARANCE (NORMAL) 07/04/23 05:19 Sodium 143 mmol/L (135-145) 07/08/23 05:04 Potassium 3.6 mmol/L (3.5-4.5) 07/08/23 05:04 Chloride 115 mmol/L (101-111) H 07/08/23 05:04 Carbon Dioxide 20 mmol/L (21-32) L 07/08/23 05:04 Anion Gap 8.0 (6-13) 07/08/23 05:04 BUN 34 mg/dL (6-20) H 07/08/23 05:04 Creatinine 2.0 mg/dL (0.6-1.3) H 07/08/23 05:04 Estimated GFR (MDRD) 24 (>89) L 07/08/23 05:04 Glucose 90 mg/dL (74-104) 07/08/23 05:04 Lactic Acid 0.9 mmol/L (0.5-2.2) 07/02/23 12:07 Calcium 8.3 mg/dL (8.5-10.3) L 07/08/23 05:04 Phosphorus 4.8 mg/dL (2.5-5.0) 07/04/23 05:19 Magnesium 1.7 mg/dL (1.7-2.3) 07/04/23 05:19 Total Bilirubin 0.8 mg/dL (0.2-1.0) 07/02/23 12:07 AST 21 IU/L (10-42) 07/02/23 12:07 ALT 18 IU/L (10-60) 07/02/23 12:07 Alkaline Phosphatase 85 IU/L (42-121) 07/02/23 12:07 Total Protein 6.9 g/dL (6.4-8.9) 07/02/23 12:07 Albumin 3.6 g/dL (3.2-5.5) 07/02/23 12:07 Globulin 3.3 g/dL (2.1-4.2) 07/02/23 12:07 Albumin/Globulin Ratio 1.1 (1.0-2.2) 07/02/23 12:07 Lipase < 10 U/L (11-82) L 07/02/23 12:07 Urine Color YELLOW 07/02/23 13:52 Urine Clarity CLOUDY (CLEAR) 07/02/23 13:52 Urine pH 7.0 PH (5.0-7.5) 07/02/23 13:52 Ur Specific [place] 1.020 (1.002-1.030) 07/02/23 13:52 Urine Protein >=300 mg/dL (NEGATIVE) H 07/02/23 13:52 Urine Glucose (UA) NEGATIVE mg/dL (NEGATIVE) 07/02/23 13:52 Urine Ketones NEGATIVE mg/dL (NEGATIVE) 07/02/23 13:52 Urine Occult Blood LARGE (NEGATIVE) H 07/02/23 13:52 Urine Nitrite NEGATIVE (NEGATIVE) 07/02/23 13:52 Urine Bilirubin NEGATIVE (NEGATIVE) 07/02/23 13:52 Urine Urobilinogen 0.2 (NORMAL) E.U./dL (NORMAL) 07/02/23 13:52 Ur Leukocyte Esterase LARGE (NEGATIVE) H 07/02/23 13:52 Urine RBC 11-25 /HPF (0-5) H 07/02/23 13:52 Urine WBC >25 /HPF (0-5) H 07/02/23 13:52 Urine WBC Clumps PRESENT 07/02/23 13:52 Ur Squamous Epith Cells RARE Squamous (<= Few) 07/02/23 13:52 Urine Bacteria Moderate /HPF (None Seen) H 07/02/23 13:52 Ur Microscopic Review INDICATED 07/02/23 13:52 Urine Culture Comments INDICATED 07/02/23 13:52 Nasal Adenovirus (PCR) NOT DETECTED 07/02/23 11:50 Nasal B. parapertussis DNA (PCR) NOT DETECTED 07/02/23 11:50 Nasal Coronavir 229E PCR NOT DETECTED 07/02/23 11:50 Nasal Coronavir HKU1 PCR NOT DETECTED 07/02/23 11:50 Nasal Coronavir NL63 PCR NOT DETECTED 07/02/23 11:50 Nasal Coronavir OC43 PCR NOT DETECTED 07/02/23 11:50 Nasal Enterovir/Rhinovir PCR NOT DETECTED 07/02/23 11:50 Nasal Influenza B PCR NOT DETECTED 07/02/23 11:50 Nasal Influenza A PCR NOT DETECTED 07/02/23 11:50 Nasal Parainfluen 1 PCR NOT DETECTED 07/02/23 11:50 Nasal Parainfluen 2 PCR NOT DETECTED 07/02/23 11:50 Nasal Parainfluen 3 PCR NOT DETECTED 07/02/23 11:50 Nasal Parainfluen 4 PCR NOT DETECTED 07/02/23 11:50 Nasal RSV (PCR) NOT DETECTED 07/02/23 11:50 Nasal B.pertussis DNA PCR NOT DETECTED 07/02/23 11:50 Nasal C.pneumoniae (PCR) NOT DETECTED 07/02/23 11:50 Terrence Human Metapneumo PCR NOT DETECTED 07/02/23 11:50 Nasal M.pneumoniae (PCR) NOT DETECTED 07/02/23 11:50 Nasal SARS-CoV-2 (PCR) NOT DETECTED 07/02/23 11:50 Last Dose Date UNKNOWN 07/06/23 10:46 Last Dose Time UNKNOWN 07/06/23 10:46 Random Vancomycin 13.7 ug/mL 07/06/23 10:46 ABX Reporting Has patient been on IV antibiotics over the past 48 hours?: Yes Current Medications - Current Medications Current Medications: Active Medications Acetaminophen (Acetaminophen 325 Mg Tablet) 650 mg PO Q4HR PRN PRN Reason: Pain 1 to 4, or Fever Last Admin: 07/07/23 13:48 Dose: 650 mg Enoxaparin Sodium (Enoxaparin 30 Mg/0.3 Ml Syringe) 30 mg SUBQ DAILY [facility] Last Admin: 07/08/23 08:42 Dose: 30 mg Cefazolin Sodium 2 gm/ Sodium (Chloride) 100 mls @ 200 mls/hr IV Q8H [facility] Last Infusion: 07/08/23 13:51 Dose: Infused Multi-Ingredient Ointment (Zinc Oxide 20% Oint 30 Gm Tube) 1 applic TOP PRN PRN PRN Reason: Skin Care Last Admin: 07/07/23 20:12 Dose: 1 applic Nystatin (Nystatin Powder 15 Gm) 1 applic TOP BID PRN PRN Reason: skin fold moisture Last Admin: 07/07/23 20:12 Dose: 1 applic Ondansetron HCl (Ondansetron Odt 4 Mg Tablet) 4 mg TL Q6HR PRN PRN Reason: Nausea / Vomiting Ondansetron HCl (Ondansetron 4 Mg/2 Ml Vial) 4 mg IVP Q6HR PRN PRN Reason: Nausea / Vomiting Oxycodone HCl (Oxycodone 5 Mg Tablet) 5 mg PO Q4HR PRN PRN Reason: Pain 5 to 7 Last Admin: 07/05/23 14:32 Dose: 5 mg Polyethylene Glycol (Polyethylene Glycol 3350 17 Gm Packet) 17 gm PO DAILY [facility] Last Admin: 07/08/23 08:42 Dose: 17 gm Potassium Chloride (Potassium Chloride 20 Meq Tablet) 20 meq PO DAILYWM [facility] Stop: 07/09/23 07:59 Last Admin: 07/08/23 08:42 Dose: 20 meq Saccharomyces Boulardii (Saccharomyces Boulardii 250 Mg Capsule) 250 mg PO BIDWM [facility] Last Admin: 07/08/23 16:56 Dose: 250 mg Senna (Senna 8.6 Mg Tablet) 8.6 - 17.2 mg PO DAILY [facility] Last Admin: 07/08/23 08:42 Dose: 8.6 mg Sodium Chloride (Sodium Chloride Flush 0.9% 10 Ml Syringe) 10 ml IVP PRN PRN PRN Reason: NEEDED PER PROVIDER ORDERS Last Admin: 07/06/23 05:26 Dose: 10 ml Sodium Chloride (Sodium Chloride Flush 0.9% 10 Ml Syringe) 10 ml IVP 0100,0900,1700 [facility] Last Admin: 07/08/23 16:56 Dose: 10 ml Topiramate (Topiramate 25 Mg Tablet) [facility] Last Admin: 07/08/23 16:56 Dose: 50 mg Duloxetine HCl [Cymbalta] 60 mg PO DAILY 08/07/18 Montelukast [Singulair] 10 mg PO QPM 05/17/19 Topiramate [Topamax] 100 mg PO QPM 05/18/19 Pantoprazole [Protonix] 40 mg PO DAILY 01/02/22 Clopidogrel [Plavix] 75 mg PO DAILY 10/06/22 Topiramate [Topamax] 50 mg PO QPM 07/03/23
[2023-07-08] MEDS: oxyCODONE 5 MG TABLET PO PRN (20:53)
[2023-07-09] MEDS: ceFAZolin (2G) 2 GM in SODIUM CHLORIDE 0.9% MINIBAG 100 ML IV SCH ×2 (05:45→12:54)
[2023-07-09 06:00] LABS: CALCIUM 8.4 mg/dL (8.5-10.3); CREATININE 1.9 mg/dL (0.6-1.3); POTASSIUM 4.2 mmol/L (3.5-4.5)
[2023-07-09 07:59] VITALS: BP 148/60; O2SAT 100
[2023-07-09] MEDS: SACCHAROMYCES BOULARDII 250 MG CAPSULE PO SCH (08:16)
[2023-07-09] MEDS: polyethylene glycoL 3350 17 GM PACKET PO SCH (08:16)
[2023-07-09] MEDS: ENOXAPARIN 30 MG/0.3 ML SYRINGE SUBQ SCH (08:16)
[2023-07-09] MEDS: SENNA 8.6 MG TABLET PO SCH (08:16)
[2023-07-09] MEDS: SODIUM CHLORIDE FLUSH 0.9% 10 ML SYRINGE IVP SCH ×2 (08:17)
--- NOTE | 2023-07-09 11:19 | Discharge Plan ---
"Discharge Plan for SNF / [facility] - Discharge Plan And Transition Orders Problem Reviewed?: Yes Disposition: 03 SNF DC/Xfer Condition: Fair Allergies and Adverse Reactions: Allergies Allergy/AdvReac Type Severity Reaction Status Date / Time Penicillins Allergy Severe Respiratory Verified 10/06/22 09:33 amitriptyline [From Elavil] Allergy Unknown Verified 10/06/22 09:33 aspirin Allergy resp Verified 10/06/22 09:33 diphenhydramine HCl * Allergy Hives Verified 10/06/22 09:33 [From Benadryl] divalproex sodium Allergy Unknown Verified 10/06/22 09:33 egg Allergy Unknown Verified 10/06/22 09:33 iodine Allergy resp Verified 09/24/22 09:17 micafungin sodium * Allergy Anaphylaxis Verified 10/06/22 09:33 [From Mycamine] oxytetracycline Allergy resp Verified 10/06/22 09:33 [From Terramycin] oxytetracycline HCl * Allergy resp Verified 10/06/22 09:33 [From Terramycin] prednisone Allergy Unknown Verified 10/06/22 09:33 valproate sodium * AdvReac Nausea Verified 10/06/22 09:33 [From Depakene] valproic acid [From Depakene] AdvReac Nausea Verified 10/06/22 09:33 Health Concerns: Patient has severe cognitive deficits, lives at [facility]. Patient came in with altered mental status and worsened kidney failure and was found to have Staph aureus bacteremia which is being treated with iv Cefazolin 2 g every 8h. PICC line was inserted and patient being sent patient back to complete treatment course of Cefazolin through 07/17/2023, for total 14 days of treatment course after the bacteremia cleared cleared. Plan of Treatment: As above. Care Goals: Improvement in symptoms and stabilization are the goals. Assessment: Health insurance authorization has been received by the accepting facility. - SNF / CUSTODIAL Transition Orders Admit to (Facility): [facility] Under the care of (Name): Dr Reynolds Discharge Diagnosis: (1) Severe sepsis (with acute organ dysfunction, type: acute renal failure) Resolved (2) MSSA Bacteremia Patient needs to receive iv Cefazolin every 8 hours through 07/17/2023 (3) Acute on chronic renal failure Improved (4) Metabolic acidemia Resolved (5) Cognitive impairment Unchanged (6) Hx CVA Stable (7) Seizure disorder Stable (8) GERD Stable (9) Depression Stable Medicare Certification Statement: I certify that Post Hospital correction care is medically necessary on a continuing basis for any of the conditions for which she/he is receiving care during hospitalization. Notify PCP of admission and forward orders to primary provider for signature. Weight on admission and: Monthly Call PCP immediately if weight increases by: 5 kg Other Notification Orders: Call PCP immediately if patient develops dyspnea, chest pain/tightness or edema. House Bowel Program: Yes Additional Bowel Program Orders: If no BM after 2 days, nurse may give M.O.M. 30ml PO PRN and/or ducolax Supp 1 GA and/or AROLDO 250mg P.O., and/or senna 1-2 tabs PO. On day 3 nurse may give repeat above order until residents constipation is resolved. Annual Influenza Vaccine (between Jun 07 and January 04): Yes Two-step PPD per [facility] [phone] or approved exception documents: Yes Treatments & Other Orders: Cefazolin 2 gm iv q8h Medication Orders: PLEASE REFER TO THE DISCHARGE MEDICATION LIST. Insulin Orders?: No - Medications New Prescriptions: ceFAZolin (2G) [Ancef] 2 gm IV Q8H #17 ea Saccharomyces Boulardii [Florastor] 250 mg PO BID #17 cap - Diet Type: Geriatric Texture: Regular Liquids: Thin May have monthly special meal: Yes - Therapies | Activity Rehabilitation Potential: Maintain present ADL Functional Activity: Activity as Tolerated"
--- NOTE | 2023-07-09 12:23 | DISCHARGE SUMMARY ---
Discharge Summary Admit Date: 07/02/23 Discharge Date: 07/09/23 Discharging Provider: Dr Sofi Waters Primary Care Provider: Dr Dylon Reynolds Condition at Discharge: Fair Discharge Disposition: SNF DC/Xfer - HPI History of Present Illness: This is a 73-year-old female who lives in an assisted living facility. She has baseline severe cognitive deficits.The impression I get in reviewing her clinic chart is that this woman had anxiety. Morbidly obese. Very sedentary. De veloped gastroparesis and was taking medications. Those medications may have given her tremors. She was seen by cardiology for chronic sinus tachycardia and a Zio patch was negative for arrhythmias. But she did not follow-up with stress test. Echo was within normal. By late 2020 and into 2021 she was starting to fall more. More memory loss. Son came to visit her in February 2022 and felt that she was "in very poor shape". This is after Meals [employer] Wheels, APS has been contacted to trying to keep her safe at home. In September 2022 she was brought in by EMS. She had dysuria but it was notable that she was completely disheveled, urine and feces on bottom and back. APS was filed and patient was discharged home. She then returned 2 weeks later [facility]. She stayed in the emergency room until October 12 when placement was found. That is when she went to go live at [facility]. In the past she has had a suprapubic catheter or indwelling catheter but has not had one recently. Last urine culture that was positive was November 2022 where she grew out Staph aureus. She also grew out Staph aureus in September 2022. She had E. coli in December 2021. Aerococcus urinate in May 2019. This morning her half-way facility, [facility], called EMS because the patient had a decreased level of consciousness and appeared to be short of breath. EMS noted to be 90% on room air. She was tachypneic. Glucose was 138. Temperature was 36.2, heart rate 108, blood pressure 144/89, respirations 26 and she was 95% on room air. The ER provider evaluated her and found her to be chronically unwell appearing patient with altered mental status. She was tachycardic and tachypneic on arrival. Work-up showed her to have a UTI. A straight cath had copious thick urine drainage that appeared to be lashell pus. She had a large amount of occult blood, white cell clumps, hematuria, pyuria, rare squamous, moderate bacteria. And it is submitted for culture. Her white cell count was 28,000. Her last white cell count in May was 8.4. Baseline creatinine is 0.9 and her creatinine is 5.3 today. She does not have any history of kidney stones. Dr. Matute, the ER provider, and I discussed whether this patient needed to be evaluated for obstruction. But with no history of kidney stones and her past history I have decided to admit her without that evaluation be needed. In reading some of the active orders for this patient at [facility], she is on a 2000 mL fluid restriction per day. Patient provides 800 mils. Nursing dayshift provides 400 mils. Evening shift provides 400 mils. physical meteorologist provides 400 mils. Her fluid restrictions need to be monitored because she is at risk of developing hyponatremia. I did try and call her Moreno and her son Krishna at the home numbers in their patient's chart. No answer either 1. But I was able to leave a voice message on son's machine. - HOSPITAL COURSE Hospital Course: (1) Severe sepsis (with acute organ dysfunction, type: acute renal failure) Resolved with iv antibx and iv fluids. Her mental status also returned to baseline. (2) MSSA Bacteremia With Hx of MRSA, she was put on empiric iv Vanco. Her urine grew only skin contaminant organisms. The blood cx grew MSSA. Vanco was changed to Cefazolin. A PICC line was placed after repeat blood cx was neg. Patient was discharged to SNF and needs to receive iv Cefazolin every 8 hours through 07/17/2023. (3) Acute on chronic renal failure Creatinine was 6, with a history of having CKD stage II. She initially had oliguria with 12-hour shift having only 300 cc urine output. Her renal function improved with iv fluids. At discharge BUN/creat were 30/1.9 (4) Metabolic acidosis Resolved with iv fluids and treating the infection. (5) Cognitive impairment Unchanged, chronic. She was discharged to [facility] for com pleting iv antibiotics, then was to transition back to being a resident at [facility]. (6) Hx CVA Her mental status returned to baseline. She has generalized weakness and some disorientation. (7) Seizure disorder Stable on meds (8) GERD Stable (9) Depression Stable - ALLERGIES Allergies/Adverse Reactions: Allergies Allergy/AdvReac Type Severity Reaction Status Date / Time Penicillins Allergy Severe Respiratory Verified 10/06/22 09:33 amitriptyline [From Elavil] Allergy Unknown Verified 10/06/22 09:33 aspirin Allergy resp Verified 10/06/22 09:33 diphenhydramine HCl * Allergy Hives Verified 10/06/22 09:33 [From Benadryl] divalproex sodium Allergy Unknown Verified 10/06/22 09:33 egg Allergy Unknown Verified 10/06/22 09:33 iodine Allergy resp Verified 09/24/22 09:17 micafungin sodium * Allergy Anaphylaxis Verified 10/06/22 09:33 [From Mycamine] oxytetracycline Allergy resp Verified 10/06/22 09:33 [From Terramycin] oxytetracycline HCl * Allergy resp Verified 10/06/22 09:33 [From Terramycin] prednisone Allergy Unknown Verified 10/06/22 09:33 valproate sodium * AdvReac Nausea Verified 10/06/22 09:33 [From Depakene] valproic acid [From Depakene] AdvReac Nausea Verified 10/06/22 09:33 - MEDICATIONS Home Medications: Ambulatory Orders Medication Instructions Recorded Confirmed Duloxetine HCl [Cymbalta] 60 mg PO DAILY 08/07/18 07/03/23 Montelukast [Singulair] 10 mg PO QPM 05/17/19 07/03/23 Pantoprazole [Protonix] 40 mg PO DAILY 01/02/22 07/03/23 Clopidogrel [Plavix] 75 mg PO DAILY 10/06/22 07/03/23 Topiramate [Topamax] 50 mg PO QPM 07/03/23 07/03/23 Saccharomyces Boulardii [Florastor] 250 mg PO BID #17 cap 07/09/23 ceFAZolin (2G) [Ancef] 2 gm IV Q8H #17 ea 07/09/23 - PHYSICAL EXAM AT DISCHARGE General Appearance: positive: No acute distress, Alert, Other (Obese) Eyes Bilateral: positive: Normal inspection, EOMI ENT: positive: ENT inspection nml, No signs of dehydration Neck: positive: Nml inspection, No JVD Respiratory: positive: No respiratory distress, Breath sounds nml Cardiovascular: positive: Regular rate & rhythm, No murmur Abdomen: positive: Non-tender, Nml bowel sounds, No distention Skin: positive: Warm, Dry Extremities: positive: Non-tender, Other (Very large legs with lymphedema to above knees) Neurologic/Psychiatric: positive: CN's nml (2-12), Disoriented to person, Other (Able to move legs on the bed, using her hands to bring food to her face) - LABS Result Diagrams: 07/07/23 04:58 07/09/23 05:32 - DIAGNOSTIC IMAGING Diagnostic Imaging Results: Final report reviewed - TIME SPENT Time Spent in Discharge (Minutes): 40
== END 2023-07-09 15:30 | DRG 872 ==
LOC: ED 11:41 → MS2 15:23
PROVIDERS: ADMIT Specialist; ATTEND Internal Medicine
PROC: 02HV33Z Insertion of Infusion Device into Superior Vena Cava, Percutaneous Approach (ICD-10-PCS; principal; 2023-07-07)
DX: A41.9 Sepsis, unspecified organism (principal); N30.00 Acute cystitis without hematuria; A41.01 Sepsis due to Methicillin susceptible Staphylococcus aureus; E87.20 Acidosis, unspecified; N30.01 Acute cystitis with hematuria; I10 Essential (primary) hypertension; N17.9 Acute kidney failure, unspecified; Z86.73 Personal history of transient ischemic attack (TIA), and cerebral infarction without residual deficits; F03.90 Unspecified dementia, unspecified severity, without behavioral disturbance, psychotic disturbance, mood disturbance, and anxiety; Z11.52 Encounter for screening for COVID-19; J45.909 Unspecified asthma, uncomplicated; B37.0 Candidal stomatitis; R65.20 Severe sepsis without septic shock; I12.9 Hypertensive chronic kidney disease with stage 1 through stage 4 chronic kidney disease, or unspecified chronic kidney disease; Z68.36 Body mass index [BMI] 36.0-36.9, adult; N18.2 Chronic kidney disease, stage 2 (mild); F09 Unspecified mental disorder due to known physiological condition; K21.9 Gastro-esophageal reflux disease without esophagitis; F32.A Depression, unspecified; G40.909 Epilepsy, unspecified, not intractable, without status epilepticus; R53.1 Weakness; R41.0 Disorientation, unspecified; E86.0 Dehydration; Z86.14 Personal history of Methicillin resistant Staphylococcus aureus infection; E66.9 Obesity, unspecified; B37.2 Candidiasis of skin and nail
CPT/HCPCS: 36415; 70450; 71045; 76770; 80048; 80053; 80202; 81001; 83605; 83690; 83735; 84100; 85025; 87040; 87086; 87150; 87181; 87633; 93005; 96365; 99284; 99285; A9270; C1751; J1650; J3370; 81003

== ENCOUNTER 2023-07-09 15:30 | Outpatient (CLI) | payer MEDICARE, MEDICAID | END 2023-07-09 15:31 | LOC: EMS 15:30 | PROVIDERS: ATTEND Internal Medicine | DX: R41.0 Disorientation, unspecified (principal); R78.81 Bacteremia; N39.0 Urinary tract infection, site not specified; G40.909 Epilepsy, unspecified, not intractable, without status epilepticus; Z74.01 Bed confinement status | CPT/HCPCS: A0425; A0428 ==

== ENCOUNTER 2023-09-27 16:33 | Outpatient (CLI) | payer MEDICARE, MEDICAID | END 2023-09-27 16:34 | disposition critical access hospital (66) | LOC: EMS 16:33 | DX: R10.31 Right lower quadrant pain (principal) | CPT/HCPCS: A0425; A0429 ==

== ENCOUNTER 2023-09-27 16:41 | Emergency (ER) | payer MEDICARE, MEDICAID ==
[2023-09-27 17:12] LABS: BASOPHILS % (AUTO) 0.2 %; EOSINOPHILS # (AUTO) 0.1 10^3/uL (0.0-0.7); EOSINOPHILS % (AUTO) 0.6 %; HCT - HEMATOCRIT 47.3 % (37.0-47.0); HGB - HEMOGLOBIN 14.6 g/dL (12.0-16.0); LYMPHOCYTES # (AUTO) 1.1 10^3/uL (1.5-3.5); LYMPHOCYTES % (AUTO) 13.7 %; MEAN CORPUSCULAR HEMOGLOBIN 28.7 pg (27.0-31.0); MEAN CORPUSCULAR HGB CONC 30.9 g/dL (32.0-36.0); MEAN CORPUSCULAR VOLUME 92.9 fL (81.0-99.0); MEAN PLATELET VOLUME 10.8 fL (7.9-10.8); MONOCYTES # (AUTO) 0.9 10^3/uL (0.0-1.0); MONOCYTES % (AUTO) 11.2 %; NEUTROPHILS # (AUTO) 6.1 10^3/uL (1.5-6.6); NEUTROPHILS % (AUTO) 73.7 %; PLT - PLATELET COUNT 256 10^3/uL (130-450); RED BLOOD COUNT 5.09 10^6/uL (4.20-5.40); RED CELL DISTRIBUTION WIDTH 14.1 % (12.0-15.0); WHITE BLOOD COUNT 8.2 x10^3/uL (4.8-10.8)
[2023-09-27 17:37] LABS: ALBUMIN 3.7 g/dL (3.2-5.5); ALBUMIN/GLOBULIN RATIO 1.2 (1.0-2.2); BILIRUBIN,TOTAL 0.5 mg/dL (0.2-1.0); CALCIUM 9.6 mg/dL (8.5-10.3); CREATININE 1.1 mg/dL (0.6-1.3); POTASSIUM 3.9 mmol/L (3.5-4.5); TOTAL PROTEIN 6.9 g/dL (6.4-8.9)
[2023-09-27 18:18] VITALS: O2SAT 100
--- NOTE | 2023-09-27 18:18 | CT Report ---
PROCEDURE: ABDOMEN/PELVIS WO INDICATIONS: RLQ abdominal pain TECHNIQUE: A CT scan of the abdomen and pelvis was performed without the use of intravenous contrast. Images we re recorded and evaluated at appropriate window settings. Reformats: coronal and sagittal. For radiat ion dose reduction, the following was used: automated exposure control, adjustment of mA and/or kV ac cording to patient size. COMPARISON: 09/12/2022 FINDINGS: Image quality: Motion degraded. There is also artifact from arms at side position Lower chest: There may be mild lower lung groundglass opacities. There is also basal atelectasis. Nor mal heart size. Solid organs: Liver is unremarkable. There are cholecystectomy clips. Suspected moderate fatty atroph y of the pancreas. No splenomegaly. No adrenal nodules. Persistent stone in the left mid ureter measu ring about 7 to 8 mm with hydronephrosis and atrophic appearance of the left kidney. The right collec ting system is nondilated. No obvious mass seen. Vessels and lymph nodes: The main portal vein is probably patent, not well seen. No pathologic lymph nodes by size criteria. No abdominal aortic aneurysm. Bowel and peritoneum: No evidence of small bowel obstruction. No pathologic ascites or drainable absc ess. Moderate fecal loading is seen. There are colonic diverticula. No evidence of active inflammatio n appendix is seen, nondilated. Body wall: Unremarkable Pelvis: Bladder is unremarkable. Hysterectomy. Bones: Degenerative changes, no acute or suspicious abnormality identified. IMPRESSION: No acute changes compared to prior imaging. Nondilated appendix. Moderate fecal loading. Left renal atrophy with collecting system dilation, persistent left mid ureter stone again seen. Imaging limitations as described above. Other findings as above. Reviewed by: Maldonado Elam MD on 09/27/2023 6:16 PM PST Approved by: Maldonado Elam MD on 09/27/2023 6:16 PM PST Station ID: [id number]
--- NOTE | 2023-09-27 18:29 | ED Physician Documentation ---
PD HPI ABD PAIN - Stated complaint Stated Complaint: RLQ PX - Chief complaint Chief Complaint: Abd Pain - History obtained from History obtained from: EMS - Additional information Additional information: 73-year-old female with history of cognitive deficit (baseline mentality of '7 year old') presents by EMS from her longterm facility for 1 day of right lower quadrant abdominal pain. History otherwise limited due to patient cognitive deficit. Patient points to her right lower abdomen as source of pain, but can give no further descriptions. Review of Systems Unable to obtain: Dementia Constitutional: denies: Fever, Chills GI: reports: Abdominal Pain. denies: Nausea, Vomiting, Constipation, Diarrhea PD PAST MEDICAL HISTORY - Past Medical History Past Medical History: Yes Cardiovascular: Hypertension, Arrhythmia Respiratory: Other, Asthma Neuro: Seizure disorder, CVA Endocrine/Autoimmune: None GI: Other MAT CUTTER: None : None Psych: None Musculoskeletal: Osteoarthritis Derm: Other - Past Surgical History Past Surgical History: Yes General: Cholecystectomy Ortho: Spine surgery /MAT CUTTER: Hysterectomy HEENT: Tonsil/Adenoidectomy - Present Medications Home Medications: Ambulatory Orders Medication Instructions Recorded Confirmed Duloxetine HCl [Cymbalta] 60 mg PO DAILY 08/07/18 09/27/23 Montelukast [Singulair] 10 mg PO QPM 05/17/19 09/27/23 Pantoprazole [Protonix] 40 mg PO DAILY 01/02/22 09/27/23 Clopidogrel [Plavix] 75 mg PO DAILY 10/06/22 09/27/23 Topiramate [Topamax] 50 mg PO QPM 07/03/23 09/27/23 Saccharomyces Boulardii [Florastor] 250 mg PO BID #17 cap 07/09/23 09/27/23 - Allergies Allergies/Adverse Reactions: Allergies Allergy/AdvReac Type Severity Reaction Status Date / Time Penicillins Allergy Severe Respiratory Verified 10/06/22 09:33 amitriptyline [From Elavil] Allergy Unknown Verified 10/06/22 09:33 aspirin Allergy resp Verified 10/06/22 09:33 diphenhydramine HCl * Allergy Hives Verified 10/06/22 09:33 [From Benadryl] divalproex sodium Allergy Unknown Verified 10/06/22 09:33 egg Allergy Unknown Verified 10/06/22 09:33 iodine Allergy resp Verified 09/24/22 09:17 micafungin sodium * Allergy Anaphylaxis Verified 10/06/22 09:33 [From Mycamine] oxytetracycline Allergy resp Verified 10/06/22 09:33 [From Terramycin] oxytetracycline HCl * Allergy resp Verified 10/06/22 09:33 [From Terramycin] prednisone Allergy Unknown Verified 10/06/22 09:33 valproate sodium * AdvReac Nausea Verified 10/06/22 09:33 [From Depakene] valproic acid [From Depakene] AdvReac Nausea Verified 10/06/22 09:33 - Social History Does the pt smoke?: No Smoking Status: Never smoker Does the pt drink ETOH?: Yes Does the pt have substance abuse?: No - Immunizations Immunizations are current?: Yes - POLST Patient has POLST: No POLST Status: Full Code PD ED PE NORMAL - Vitals Vital signs reviewed: Yes - General General: No acute distress, Well developed/nourished, Other (AOx1) - Cardiac Cardiac: RRR, Strong equal pulses - Respiratory Respiratory: No respiratory distress, Clear bilaterally - Abdomen Abdomen: Soft, Non distended, Other (RLQ tenderness to deep palpation without rebound or guarding) - Derm Derm: Normal color, Warm and dry, No rash - 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, No motor deficit, Normal speech Results - Vitals Vitals: Vital Signs - 24 hr 09/27/23 09/27/23 09/27/23 16:42 18:08 20:29 Temperature 36.7 C 35.8 C L 35.6 C L Heart Rate 94 94 88 Respiratory 18 18 18 Rate Blood Pressure 173/90 H 118/87 H 194/90 H O2 Saturation 97 100 100 Oxygen O2 Source [With Activity] Room air O2 Source Room air - Labs Labs: Laboratory Tests 09/27/23 09/27/23 09/27/23 17:05 17:05 19:28 WBC 8.2 RBC 5.09 Hgb 14.6 Hct 47.3 H MCV 92.9 MCH 28.7 MCHC 30.9 L RDW 14.1 Plt Count 256 MPV 10.8 Neut # (Auto) 6.1 Lymph # (Auto) 1.1 L [place] # (Auto) 0.9 Eos # (Auto) 0.1 Baso # (Auto) 0.0 Absolute Nucleated RBC 0.00 Nucleated RBC % 0.0 Sodium 137 Potassium 3.9 Chloride 105 Carbon Dioxide 21 Anion Gap 11.0 BUN 20 Creatinine 1.1 Estimated GFR (MDRD) 49 L Glucose 116 H Calcium 9.6 Total Bilirubin 0.5 AST 12 ALT 4 L Alkaline Phosphatase 94 Total Protein 6.9 Albumin 3.7 Globulin 3.2 Albumin/Globulin Ratio 1.2 Lipase 10 L Urine Color YELLOW Urine Clarity CLOUDY Urine pH 5.5 Ur Specific [place] 1.025 Urine Protein NEGATIVE Urine Glucose (UA) NEGATIVE Urine Ketones NEGATIVE Urine Occult Blood NEGATIVE Urine Nitrite NEGATIVE Urine Bilirubin NEGATIVE Urine Urobilinogen 0.2 (NORMAL) Ur Leukocyte Esterase TRACE H Urine RBC 0-5 Urine WBC 6-10 H Ur Squamous Epith Cells FEW Squamous Urine Bacteria Few Ur Microscopic Review INDICATED Urine Culture Comments INDICATED PD Medical Decision Making - ED course Complexity details: reviewed old records, reviewed results, re-evaluated patient, considered differential, d/w patient ED course: Right lower quadrant pain for 1 day. Abdomen soft, minimal tenderness to deep palpation without rebound or guarding. Will order laboratory work, urinalysis, CT imaging. Laboratory work is reviewed, no acute abnormalities. Patient's renal function has improved from her previous hospital stay. No leukocytosis. Urinalysis with trace leukocyte esterase, 6-10 WBCs, however squamous cells are present. CT of the abdomen and pelvis shows a presumably incidental left-sided 8 to 9 mm kidney stone with hydronephrosis and left renal atrophy. When compared to a previous CT from 2021 this is unchanged. I discussed the case with on-call urology Dr. Donovan, who stated that since this is a chronic stone and the urinalysis is not convincing for infection. Recommended sending for culture as a precautionary measure, however without leukocytosis, urinary symptoms, or toxic appearance this is likely incidental and does not need to be treated with antibiotics. Patient discharged back to her facility. Recommended increasing laxatives Departure - Departure Disposition: 01 Home, Self Care Clinical Impression: Abdominal pain Qualifiers: Abdominal location: right lower quadrant Qualified Code(s): R10.31 - Right lower quadrant pain Condition: Stable Instructions: Abdominal Pain Forms: PCP List
[2023-09-27 19:46] LABS: BILIRUBIN,URINE NEGATIVE (NEGATIVE); GLUCOSE, URINE (UA) NEGATIVE (NEGATIVE); KETONES,URINE (UA) NEGATIVE (NEGATIVE); LEUKOCYTE ESTERASE, URINE TRACE (NEGATIVE); NITRITE,URINE NEGATIVE (NEGATIVE); OCCULT BLOOD,URINE NEGATIVE (NEGATIVE); PH,URINE 5.5 PH (5.0-7.5); PROTEIN,URINE NEGATIVE (NEGATIVE); UROBILINOGEN,URINE 0.2 (NORMAL) E.U./dL (NORMAL)
[2023-09-27 19:47] LABS: CLARITY,URINE CLOUDY (CLEAR)
[2023-09-27 20:09] LABS: BACTERIA,URINE Few /HPF (None Seen); RBC,URINE 0-5 /HPF (0-5); SQUAMOUS EPITHELIAL CELL,UR FEW Squamous (<= Few)
[2023-09-27 20:36] VITALS: BP 194/90
== END 2023-09-27 21:00 | disposition home or self-care (01) ==
LOC: EDUNIT# → ED 16:41
DX: R10.31 Right lower quadrant pain (principal); N13.2 Hydronephrosis with renal and ureteral calculous obstruction
CPT/HCPCS: 36415; 80053; 81001; 81003; 83690; 85025; 87086; 99283

== ENCOUNTER 2023-09-27 21:02 | Outpatient (CLI) | payer MEDICARE, MEDICAID | END 2023-09-27 21:03 | LOC: EMS 21:02 | PROVIDERS: ATTEND Emergency Medicine | DX: R10.31 Right lower quadrant pain (principal); Z74.01 Bed confinement status; F03.90 Unspecified dementia, unspecified severity, without behavioral disturbance, psychotic disturbance, mood disturbance, and anxiety | CPT/HCPCS: A0425; A0428 ==

== ENCOUNTER 2023-10-20 08:00 | Outpatient (CLI) | payer MEDICARE, MEDICAID | END 2023-10-20 23:59 | disposition home or self-care (01) | LOC: LAB.R 08:00 | DX: G40.909 Epilepsy, unspecified, not intractable, without status epilepticus (principal) | CPT/HCPCS: 80201; 81599 ==

== ENCOUNTER 2024-03-31 11:58 | Outpatient (CLI) | payer MEDICARE, MEDICAID | END 2024-03-31 11:59 | disposition home or self-care (01) | LOC: LAB.R 11:58 | PROVIDERS: ATTEND Family Medicine | DX: G40.909 Epilepsy, unspecified, not intractable, without status epilepticus (principal) | CPT/HCPCS: 81599 ==

== ENCOUNTER 2024-05-01 08:00 | Outpatient (CLI) | payer MEDICARE, MEDICAID | END 2024-05-01 23:59 | disposition home or self-care (01) | LOC: LAB.R 08:00 | PROVIDERS: ATTEND Family Medicine | DX: G40.909 Epilepsy, unspecified, not intractable, without status epilepticus (principal) | CPT/HCPCS: 81599; 86480 ==

== ENCOUNTER 2024-05-25 06:50 | Outpatient (CLI) | payer MEDICARE, MEDICAID | END 2024-05-25 06:51 | disposition home or self-care (01) | LOC: LAB.R 06:50 | PROVIDERS: ATTEND Family Medicine | DX: G40.909 Epilepsy, unspecified, not intractable, without status epilepticus (principal) | CPT/HCPCS: 81599 ==

== ENCOUNTER 2024-06-22 23:40 | Outpatient (CLI) | payer MEDICARE, MEDICAID | END 2024-06-22 23:59 | disposition home or self-care (01) | LOC: LAB.R 23:40 | PROVIDERS: ATTEND Family Medicine | DX: G40.909 Epilepsy, unspecified, not intractable, without status epilepticus (principal) | CPT/HCPCS: 80201; 81599 ==